=== PATIENT | male | born 1945 | race Caucasian/White ===

== ENCOUNTER 2022-11-11 12:56 | Outpatient (OUT) | payer MEDICARE, SELFPAY ==
[2022-11-11 14:49] LABS: Prostate Specific Antigen Dx 0.81 ng/mL (<=4.00)
== END 2022-11-11 12:57 | disposition home or self-care (01) ==
LOC: LAB 12:57
PROVIDERS: PCP Family Medicine
DX: C61 Malignant neoplasm of prostate (principal)
CPT/HCPCS: 36415; 84153

== ENCOUNTER 2022-11-11 12:58 | Outpatient (OUT) | payer MEDICARE, SELFPAY | END 2022-11-11 12:59 | disposition home or self-care (01) | LOC: LAB 12:58 | PROVIDERS: PCP Family Medicine; Visit Provider Urology | DX: N39.0 Urinary tract infection, site not specified (principal) | CPT/HCPCS: 36415; 84153; 87086; 87150; 87186 ==

== ENCOUNTER 2022-11-11 13:03 | Outpatient (OUT) | payer MEDICARE, SELFPAY ==
[2022-11-11 13:27] LABS: Basophils Percent Auto 0.5 % (0.2-2.0); Eosinophils Absolute Auto 0.1 10^3/uL (0.0-0.7); Eosinophils Percent Auto 1.9 % (0.9-7.0); Hematocrit 42.4 % (42.0-54.0); Hemoglobin 14.1 g/dL (14.0-18.0); Immature Granulocytes Abs Auto 0.08 10^3/uL (0.00-0.03); Immature Granulocytes Pct Auto 1.4 % (0.0-0.5); Lymphocytes Absolute Auto 1.2 10^3/uL (1.2-3.8); Mean Corpuscular HGB Conc 33.3 g/dL (29.9-35.2); Mean Corpuscular Hemoglobin 29.2 pg (25.9-34.0); Mean Corpuscular Volume 87.8 fL (80.0-94.0); Mean Platelet Volume 8.1 fL (9.5-13.5); Monocytes Absolute Auto 0.5 10^3/uL (0.3-0.8); Monocytes Percent Auto 8.1 % (1.7-12.0); Neutrophils Percent Auto 68.1 % (43.0-75.0); Platelet Count 192 10^3/uL (150-450); Red Blood Count 4.83 10^6/uL (4.70-6.10); Red Cell Distribution Width 13.4 % (11.0-15.0); White Blood Count 5.9 10^3/uL (4.0-11.0)
[2022-11-11 15:31] LABS: Alanine Aminotransferase 28 U/L (16-63); Albumin Globulin Ratio 1.1; Alkaline Phosphatase 124 U/L (46-116); Anion Gap 14.2; Aspartate Amino Transferase 16 U/L (15-37); BUN Creatinine Ratio 23.7; Bilirubin Direct 0.1 mg/dL (0.0-0.2); Bilirubin Total 0.6 mg/dL (0.2-1.0); Calcium 9.1 mg/dL (8.5-10.1); Carbon Dioxide 25.4 mmol/L (21.0-32.0); Chloride 103 mmol/L (98-107); Chol HDL Ratio 4.2; Cholesterol 217 mg/dL (<=200); Estimated GFR (African America >60 (>=60); Estimated GFR (Non-African Ame >60 (>=60); Globulin 3.5 g/dL; Glucose 92 mg/dL (74-106); HDL Cholesterol 52 mg/dL (40-60); Potassium 4.6 mmol/L (3.5-5.1); Sodium 138 mmol/L (136-145); Total Protein 7.5 g/dL (6.4-8.2); Triglycerides 146 mg/dL (<=150); VLDL CHOLESTEROL 29.2 mg/dL
== END 2022-11-11 13:04 | disposition home or self-care (01) ==
LOC: LAB 13:05
PROVIDERS: PCP Family Medicine; Visit Provider Family Medicine
DX: Z79.899 Other long term (current) drug therapy (principal); Z13.220 Encounter for screening for lipoid disorders; C61 Malignant neoplasm of prostate; N39.0 Urinary tract infection, site not specified
CPT/HCPCS: 36415; 80048; 80061; 80076; 84153; 85025; 87086; 87150; 87186

== ENCOUNTER 2023-01-12 13:43 | Outpatient (OUT) | payer MEDICARE, SELFPAY ==
[2023-01-12 15:14] LABS: Prostate Specific Antigen Dx 0.57 ng/mL (<=4.00)
== END 2023-01-12 13:44 | disposition home or self-care (01) ==
LOC: LAB 13:43
PROVIDERS: PCP Family Medicine; Visit Provider Urology
DX: Z85.46 Personal history of malignant neoplasm of prostate (principal)
CPT/HCPCS: 36415; 84153

== ENCOUNTER 2023-07-28 13:51 | Outpatient (OUT) | payer MEDICARE, SELFPAY ==
[2023-07-28 15:07] LABS: Prostate Specific Antigen Dx 0.61 ng/mL (<=4.00)
== END 2023-07-28 13:52 | disposition home or self-care (01) ==
LOC: LAB 13:51
PROVIDERS: PCP Family Medicine; Visit Provider Urology
DX: Z85.46 Personal history of malignant neoplasm of prostate (principal)
CPT/HCPCS: 36415; 84153

== ENCOUNTER 2024-01-17 14:33 | Outpatient (OUT) | payer MEDICARE, SELFPAY ==
[2024-01-17 16:02] LABS: Prostate Specific Antigen Dx 0.55 ng/mL (<=4.00)
== END 2024-01-17 14:34 | disposition home or self-care (01) ==
LOC: LAB 14:33
PROVIDERS: PCP Family Medicine; Visit Provider Radiology Radiation Oncology
DX: Z85.46 Personal history of malignant neoplasm of prostate (principal)
CPT/HCPCS: 36415; 84153

== ENCOUNTER 2025-01-25 14:22 | Outpatient (OUT) | payer MEDICARE, SELFPAY ==
--- OUTSIDE RECORDS SUMMARY | 2025-01-25 14:28 | XMS_ITS | CCD ---
Author Organization [facility] Care Team Providers Care Deputy Chief Magistrate Name Role Phone Reta PATTON Unavailable Unavailable Desmond Alex Primary Care Provider [phone] Boone Gregory Unavailable MD Desmond Alex Primary Care Provider MD Boone Gregory Attending Provider [phone] DO Harjit Bui Emergency Provider [phone] Aiden Donald Unavailable [phone] MD Desmond Alex Primary Care Provider [phone] MD oBone Gregory Attending Provider DO Harjit Biu Emergency Provider DO Thomas Willard Emergency Provider MD Desmond Alex Primary Care Provider MD Boone Gregory Attending Provider [phone] Nilsa Vargas II Unavailable [phone] MD Desmond Alex Primary Care Provider MD Boone Gregory Attending Provider MD Nilsa Vargas II Attending Provider DESMOND ALEX Admitting Unavailable DESMOND ALEX Attending Unavailable DESMOND ALEX Primary Care Unavailable DR EDUARDO MCDONNELL V Consulting Unavailable DESMOND ALEX Consulting Unavailable DR VALERIA PATTON Admitting Unavailable DR VALERIA PATTON Attending Unavailable DESMOND ALEX Primary Care Unavailable DR VALERAI PATTON Consulting Unavailable DESMOND ALEX Admitting Unavailable DESMOND ALEX Attending Unavailable DESMOND ALEX Primary Care Unavailable DR PANDA SALGADO Consulting Unavailable DESMOND ALEX Consulting Unavailable Desmond Alex Primary Care Provider MD Desmond Alex Primary Care Provider MD Boone Gregory Attending Provider MD Desmond Alex Primary Care Provider MD Nilsa Vargas II Attending Provider DO Rohan Narayan Attending Provider MD Desmond Alex Primary Care Provider MD Nilsa Vargas II Attending Provider DSEMOND ALEX Attending Unavailable ROHAN NARAYAN Attending Unavailable DESMOND ALEX Referring Unavailable ROHAN NARAYAN Attending Unavailable ROHAN NARAYAN Attending Unavailable DESMOND ALEX Attending Unavailable MD Desmond Alex Primary Care Provider NILSA VARGAS Referring Unavaila ble ISAI, DESMOND Primary Care Unavailable NILSA VARGAS Referring Unavaila ble ISAI, DESMOND Primary Care Unavailable MD Desmond Alex Primary Care Provider [phone] MD Nilsa Vargas II Attending Provider Desmond Alex Primary Care Provider DESMOND ALEX Primary Care Unavailable Reta PATTON Referring Unavailable Reta PATTON Attending Unavailable MD Boone Gregory Attending Provider [phone] MD Desmond Alex Primary Care Provider MD Nilsa Vargas II Attending Provider Desmond Alex MD Primary Care Provider Harjit MUELLER Attending Unavailable Harjit MUELLER Attending Unavailable Desmond Alex MD Primary Care Provider Nilsa Vargas MD Attending Provider Desmond Alex Primary Care Unavailable Boone Gregory Admitting Unavailable Boone Gregory Attending Unavailable Nilsa Vargas II Admitting UnavailNilsa Jimenez II Attending Unavailvidal e Desmond Alex Primary Care Unavailable Michele DE LA VEGA, Nilsa Kelsey Admitting Noel Vargas II, Nilsa Kelsey Attending Desmond Benavidez Primary Care Unavailable Michele DE LA VEGA, Nilsa Kelsey Admitting Noel Vargas II, Nilsa Kelsey Attending Desmond Benavidez Primary Care Unavailable Michele DE LA VEGA, Nilsa Kelsey Attending Noel Vargas II, Nilsa Kelsey Admitting Desmond Benavidez Primary Care Unavailable Medications Current Medications Medication Drug Class(es) Dates Sig (Normalized) Sig (Original) aspirin 325 mg oral tablet (2 sources) Platelet Aggregation Inhibitor, Nonsteroidal Anti-inflammatory Drug take 1 tablet by mouth once daily aspirin 325 mg tablet Take 325 mg by mouth once daily. Active Comment on above: Take 325 mg by mouth once daily. cranberry conc/ascorbic acid (CRANBERRY PLUS VITAMIN C ORAL) (2 sources) cranberry conc/ascorbic acid (CRANBERRY PLUS VITAMIN C ORAL) Take by mouth. Active cranberry conc/a scorbic acid (CRANBERRY PLUS VITAMIN C ORAL) Take by mouth. 0 Active Comment on above: Take by mouth. furosemide 20 mg oral tablet (5 sources) Loop Diuretic take 1 tablet by mouth every twenty-four hours Furosemide 20 MG 1 tablet Orally Once a day Active Multivitamin preparation (10 sources) Multivitamin Act issac naproxen sodium 220 mg oral capsule (1 source) Nonsteroidal Anti-inflammatory Drug Start: 01-24-20 25 take 1 capsule by mouth twice daily as needed Naproxen Sodium (Aleve) 220 mg capsule Active 220 MG PO Twice daily as needed January 23, 2025 12:00am Complies with drug therapy tamsulosin hydrochloride 0.4 mg oral capsule (20 sources) alpha-Adrenergic Ashkan Start: 04-07-20 23 tamsulosin (Flomax) 0.4 MG 24 hr capsule 04/07/2023 Active Start: 04-07-2018 take 1 capsule by [facility] twice daily Tamsulosin 0.4 mg capsule Active 0.4 MG PO Twice daily April 07, 2018 1:00am Complies with drug therapy Start: 04-07-2018 End: 12-08-2021 take 1 capsule by mouth once daily at bedtime tamsulosin (FLOMAX) 0.4 mg Indications: Prostate cancer (HCC) Take 1 capsule by mouth daily at bedtime. 90 capsule 12/08/2021 Active Comment on above: Take 1 capsule by mo uth daily at bedtime. Completed/Discontinued Medications Medication Drug Class(es) Dates Sig (Normalized) Sig (Original) acetaminophen 500 mg oral tablet (20 sources) Start: 11-18-2023 End: 01-23-2025 take 2 tablets by mouth every eight hours Acetaminophen 500 mg tablet Discontinued 1000 MG PO Q8H 180 November 18, 2023 12:00am January 23, 2025 3:38pm Do not reconcile until DOS: 12/05/23. Med to bed Start: 11-18-2023 take 1000 mg by mout h every eight hours Acetaminophen Active 1000 MG PO Q8H 180 November 18, 2023 12:00am Do not reconcile until DOS: 12/05/23. Med to bed Start: 01-20-2022 End: 11-18-2023 take 1 tablet by mouth every twelve hours as needed for pain Acetaminophen 650 mg Tablet Extended Release Discontinued 650 MG PO Q12H as needed for pain January 20, 2022 12:00am November 18, 2023 9:37am acetaminophen (T YLENOL ARTHRITIS PAIN ORAL) Take by mouth. Active acetaminophen (T YLENOL ARTHRITIS PAIN ORAL) Take by mouth. 0 Active Tylenol prn Acti ve Tylenol Active Comment on above: Take by mouth. acetaminophen 325 mg / oxyCODONE hydrochloride 5 mg oral tablet (20 sources) Opioid Agonist Start: 8 End: 2 take 1 tablet by mouth every six hours as needed for pain Oxycodone-Acetaminoph en 5-325 mg tablet Discontinued 1 TAB PO Q6H as needed for pain 10 April 13, 2017January 20, 2022 11:33am apixaban 5 mg oral tablet (20 sources) Factor Xa Inhibitor Start: 2 End: 4 take 1 tablet by mouth once Apixaban (Eliquis Dvt-Pe Treat 30d Start) 5 mg (74 tabs) tablets,dose pack Discontinued 0 PO .COMPLEX 74 March 18, 2022 1:00am June 30, 2023 3:48pm orally per package directions take 1 tablet by mouth every twe lve hours Eliquis 5 MG 1 tablet Orally Twice a day Active Cranberry Conc-Ascorbic Acid (17 sources) Non-Standardized Food Allergenic Extract, Non-Standardized Plant Allergenic Extract, Vitamin C Start: 09-06-2023 End: 11-18-2023 take 1 capsule by mouth once daily Cranberry Conc-Ascorbic Acid (Cranberry Plus Vitamin C) 140-100 mg capsule Discontinued 1 CAP PO Daily September 06, 2023 12:00am November 18, 2023 9:37am Start: 09-06-2023 take 1 capsule by mo uth once daily Cranberry Conc-Ascorbic Acid (Cranberry Plus Vitamin C) 140-100 mg capsule Active 1 CAP PO Daily September 06, 2023 12:00am Calcium (20 sources) Phosphate Binder, Calcium Start: 01-20-2022 End: 09-06-2023 take 1 capsule by mouth once daily Calcium 600 mg Capsule Discontinued 600 MG PO Daily January 20, 2022 12:00am September 06, 2023 4:22pm Start: 01-20-2022 End: 09-06-2023 take 600 mg by mouth once daily Calcium Discontinued 600 MG PO Daily January 20, 2022 12:00am September 06, 2023 4:22pm Start: 01-20-2022 take 600 mg by mouth once daily Calcium Active 600 MG PO Daily January 19, 2022 11:00pm Start: 01-20-2022 take 600 mg by mouth once daily Calcium Active 600 MG PO Daily January 20, 2022 12:00am Calcium Active calcium carbonate 1500 mg / cholecalciferol 200 unt oral capsule (17 sources) Vitamin D Start: 09-06-2023 End: 01-23-2025 take 1 capsule by mouth once daily in the morning Calcium Carbonate-Vitamin D3 (Calcium 600 + D(3)) 600 mg-5 mcg (200 unit) capsule Discontinued 1 CAP PO Every morning September 06, 2023 12:00am January 23, 2025 3:38pm cefadroxil 500 mg oral capsule (13 sources) Cephalosporin Antibacterial Start: 11-18-2023 End: 01-23-2025 take 1 capsule by mouth every twelve hours Cefadroxil 500 mg capsule Discontinued 500 MG PO Q12H 14 November 18, 2023 12:00am January 23, 2025 3:38pm Do not reconcile until DOS: 12/05/23. Med to bed cephalexin 500 mg oral capsule (20 sources) Cephalosporin Antibacterial Start: 02-26-2022 End: 06-30-2023 take 2 capsules by mouth twice daily Cephalexin 500 mg capsule Discontinued 1000 MG PO Twice daily 40 February 26, 2022 12:00am June 30, 2023 3:49pm Start: 02-26-2022 End: 06-30-2023 take 1000 mg by mouth twice daily Cephalexin Discontinued 1000 MG PO Twice daily 40 February 26, 2022 12:00am June 30, 2023 3:49pm ciprofloxacin 500 mg oral tablet (20 sources) Quinolone Antimicrobial Start: 04-13-2018 End: 01-20-2022 take 1 tablet by mouth every twelve hours Ciprofloxacin Hcl (Cipro) 500 mg tablet Discontinued 500 MG PO Q12H April 13, 2018 1:00am January 20, 2022 11:29am docusate sodium 50 mg oral capsule (19 sources) Start: 09-06-2023 End: 01-23-2025 take 2 capsules by mouth once daily in the morning Docusate Sodium 50 mg capsule Discontinued 100 MG PO Every morning September 06, 2023 12:00am January 23, 2025 3:38pm Start: 09-06-2023 take 100 mg by mouth once daily in the morning Docusate Sodium Active 100 MG PO Every morning September 06, 2023 12:00am Start: 09-06-2023 take 100 mg by mouth twice genesis ly Docusate Sodium Active 100 MG PO Twice daily September 06, 2023 12:00am docusate sodium (STOOL SOFTENER ORAL) Take by mouth. Active docusate sodium (STOOL SOFTENER ORAL) Take by mouth. 0 Active Comment on above: Take by mouth. docusate sodium 50 mg / sennosides, [facility] 8.6 mg oral tablet (13 sources) Start: 11-18-19 End: 01-24-20 take 2 tablets by mouth once daily Sennosides-Docusate Sodium (Senokot-S) 8.6-50 mg tablet Discontinued 2 TAB PO daily 60 November 18, 2023 12:00am January 23, 2025 3:39pm Do not reconcile until DOS: 12/05/23. Med to bed ibuprofen 200 mg oral tablet (13 sources) Nonsteroidal Anti-inflammatory Drug Start: 11-18-19 End: 11-21-19 take 1 tablet by mouth every six hours as needed Ibuprofen 200 mg tablet Discontinued 200 MG PO Every 6 hours as needed November 18, 2023 12:00am November 21, 2023 4:12pm Lactobacillus Combination No.4 (Probiotic) 3 billion cell Capsule (20 sources) Start: 04-07-20 End: 06-30-19 take 3 capsules by mouth once daily Lactobacillus Combination No.4 (Probiotic) 3 billion cell Capsule Discontinued 3000 MMU CELLS PO Daily April 07, 2018 1:00am June 30, 2023 3:49pm Start: 04-07-2018 take 3 capsules by m outh once daily Lactobacillus Combination No.4 (Probiotic) 3 billion cell Capsule Active 3000 MMU CELLS PO Daily April 07, 2018 12:00am Start: 04-07-2018 take 3 capsules by m outh once daily Lactobacillus Combination No.4 (Probiotic) 3 billion cell Capsule Active 3000 MMU CELLS PO Daily April 07, 2018 1:00am meloxicam 15 mg oral tablet (20 sources) Nonsteroidal Anti-inflammatory Drug Start: 09-15-2022 End: 01-23-2025 take 1 tablet by mouth once daily in the morning Meloxicam 15 mg tablet Discontinued 15 MG PO Every morning June 30, 2023 1:00am January 23, 2025 3:38pm On Hold: Resume on 01/05/24. Start: 01-20-2022 End: 2022 take 1 tablet by mouth once daily Meloxicam 15 mg tablet Discontinued 15 MG PO Daily January 20, 2022 12:00am 2022 9:37am Comment on above: Take 1 tablet by beck th every afternoon. Multivitamin (One A Day Vitamin) Tablet (20 sources) Start: 2 End: take 1 tablet by mouth once daily Multivitamin (One A Day Vitamin) Tablet Discontinued 1 TAB PO Daily January 20, 2022 12:00am September 06, 2023 4:24pm Start: 01-20-2022 take 1 tablet by beck th once daily Multivitamin (One A Day Vitamin) Tablet Active 1 TAB PO Daily January 19, 2022 11:00pm Start: 01-20-2022 take 1 tablet by beck th once daily Multivitamin (One A Day Vitamin) Tablet Active 1 TAB PO Daily January 20, 2022 12:00am omeprazole 20 mg delayed release oral capsule (13 sources) Proton Pump Inhibitor Start: 11-21-2023 End: 01-23-2025 take 1 capsule by mouth once daily as needed Omeprazole 20 mg capsule,delayed release(DR/EC) Discontinued 20 MG PO Daily as needed for acid reflux November 21, 2023 12:00am January 23, 2025 3:38pm omeprazole OTC ( PriLOSEC OTC) 20 MG EC tablet Active ondansetron 4 mg oral tablet (13 sources) Serotonin-3 Receptor Antagonist Start: 11-18-2023 End: 01-23-2025 take 1 tablet by mouth every eight hours as needed for nausea Ondansetron Hcl 4 mg tablet Discontinued 4 MG PO Q8H as needed for Nausea 9 November 18, 2023 12:00am January 23, 2025 3:38pm Do not reconcile until DOS: 12/05/23. Med to bed oxyCODONE hydrochloride 5 mg oral tablet (20 sources) Opioid Agonist Start: 11-18-2023 End: 01-23-2025 take 1 tablet by mouth every four hours as needed for pain Oxycodone 5 mg tablet Discontinued 5 MG PO Q4H as needed for Pain 42 7 November 18, 2023 January 23, 2025 3:39pm Do not reconcile until DOS: 12/05/23. Med to bed Start: 2022 End: 06-30-2023 take 5-10 mg by mouth every six hours as needed for pain Oxycodone 5 mg tablet Discontinued 5 - 10 MG PO Q6H as needed for Pain 40 8 2022 June 30, 2023 3:49pm pantoprazole 20 mg delayed release oral tablet (13 sources) Proton Pump Inhibitor Start: 11-18-2023 End: 01-23-2025 take 1 tablet by mouth once daily Pantoprazole (Protonix) 20 mg tablet,delayed release (DR/EC) Discontinued 20 MG PO daily 35 35 November 18, 2023 12:00am January 23, 2025 3:39pm Do not reconcile until DOS: 12/05/23. Med to bed polyethylene glycol 3350 81371 mg powder for oral solution (13 sources) Osmotic Laxative Start: 11-18-2023 End: 01-23-2025 Polyethylene Glycol 3350 (Miralax) 17 gram/dose powder Discontinued 17 GM PO daily 7 November 18, 2023 12:00am January 23, 2025 3:39pm 1 packed mixed with 8 ounces of fluid. predniSONE 10 mg oral tablet (20 sources) Start: 11-18-2023 End: 01-23-2025 take 1 tablet by mouth once daily Prednisone 10 mg tablet Discontinued 10 MG PO daily 10 November 18, 2023 12:00am January 23, 2025 3:39pm Do not reconcile until DOS: 12/05/23. Med to bed Start: 03-02-2022 predniSONE 5 M G 1 tablet 3 times a day for 3 days, 1 tablets 2 times a day for 3 days , 1 tablet 1 times a day for 3 days Orally as directed for 9 days Mar, Active Start: 2022 End: 06-30-2023 Prednisone 10 mg tablets,dos e pack Discontinued 1 dose pk PO per package directions 2022 12:00am June 30, 2023 3:49pm take 4 tabs for 3 days then take 3 tabs for 3 days then take 2 tabs for 3 days then take 1 tab for 3 days Start: 2022 End: 06-30-2023 Prednisone Discontinued 1 do se pk PO per package directions 2022 12:00am June 30, 2023 3:49pm take 4 tabs for 3 days then take 3 tabs for 3 days then take 2 tabs for 3 days then take 1 tab for 3 days Start: 2022 Prednisone Act issac 1 dose pk PO per package directions February 05, 2022 11:00pm take 4 tabs for 3 days then take 3 tabs for 3 days then take 2 tabs for 3 days then take 1 tab for 3 days Start: 2022 Prednisone Act issac 1 dose pk PO per package directions 2022 12:00am take 4 tabs for 3 days then take 3 tabs for 3 days then take 2 tabs for 3 days then take 1 tab for 3 days rivaroxaban 10 mg oral tablet (13 sources) Factor Xa Inhibitor Start: 11-18-2023 End: 01-23-2025 take 1 tablet by mouth once daily Rivaroxaban 10 mg tablet Discontinued 10 MG PO daily 35 35 November 18, 2023 12:00am January 23, 2025 3:39pm Do not reconcile until DOS: 12/05/23. Med to bed sulfamethoxazole 800 mg / trimethoprim 160 mg oral tablet (20 sources) Dihydrofolate Reductase Inhibitor Antibacterial, Sulfonamide Antimicrobial Start: 2022 End: 02-26-2022 take 1 tablet by mouth every twelve hours Sulfamethoxazole- Trimethoprim (Bactrim Ds) 800-160 mg tablet Discontinued 1 TAB PO Q12H 2022 12:00am February 26, 2022 2:24pm traMADol hydrochloride 50 mg oral tablet (20 sources) Opioid Agonist Start: 09-09-2023 End: 01-23-2025 take 1 tablet by mouth every six hours as needed for pain Tramadol 50 mg tablet Discontinued 50 MG PO q6h as needed for Pain 28 November 18, 2023 12:00am January 23, 2025 3:39pm Do not reconcile until DOS: 12/05/23. Med to bed triamcinolone acetonide 40 mg/ml injectable suspension (17 sources) Corticosteroid Start: 06-16-2022 Kenalog-40 August, 120 mg Zinc (20 sources) Start: 01-20-2022 End: 09-06-2023 take 1 capsule by mouth once daily Zinc 50 mg Capsule Discontinued 50 MG PO Daily January 20, 2022 12:00am September 06, 2023 4:24pm Start: 01-20-2022 End: 09-06-2023 take 50 mg by mouth once daily Zinc Discontinued 50 MG PO Daily January 20, 2022 12:00am September 06, 2023 4:24pm Start: 01-20-2022 take 50 mg by mouth once daily Zinc Active 50 MG PO Daily January 19, 2022 11:00pm Start: 01-20-2022 take 50 mg by mouth once daily Zinc Active 50 MG PO Daily January 20, 2022 12:00am Problems Active Problems Problem Classification Problem Date Documented Da te Episodic/Chronic Abdominal hernia (17 sources) Inguinal hernia; Translations: [Unilateral inguinal hernia, without obstruction or gangrene, not specified as recurrent] Onset: 08-05-2023 Resolved: 10-27-2023 09-09-2023 Episodic Cancer of prostate (2 sources) History of malignant neoplasm of prostate; Translations: [Personal history of malignant neoplasm of prostate] 12-07-2022 Episodic Malaise and fatigue (20 sources) Fatigue; Translations: [Other fatigue] 02-26-2022 Episodic Comment on above: Problem List clean-u p per request of PhysHermila DUDLEY Cmte Osteoarthritis (20 sources) Arthropathy of bilateral hip joints; Translations: [Bilateral primary osteoarthritis of hip] Onset: 01-14-2022 Resolved: 01-14-2022 Chronic Osteoporosis (15 sources) Senile osteoporosis; Translations: [Age-related osteoporosis without current pathological fracture] 10-12-2023 Chronic Other acquired deformities (20 sources) Lumbar spondylolisthesis; Translations: [Spondylolisthesis, lumbar region] 02-16-2024 Episodic Other acquired deformities (6 sources) Spondylolisthesis, lumbar region; Translations: [Acquired spondylolisthesis] Onset: 01-14-2022 Resolved: 01-14-2022 Episodic Other aftercare (11 sources) Patient encounter status; Translations: [Aftercare following joint replacement surgery] 12-21-2023 Chronic Other aftercare (11 sources) Aftercare following joint replacement surgery; Translations: [Aftercare following joint replacement] Onset: 01-19-2024 12-21-2023 Chronic Other aftercare (15 sources) Long-term current use of drug therapy; Translations: [Other prison (current) drug therapy] 10-12-2023 Episodic Other connective tissue disease (8 sources) History of repair of hip joint; Translations: [Presence of unspecified artificial hip joint] 01-19-2024 Chronic Other connective tissue disease (10 sources) Presence of unspecified artificial hip joint; Translations: [Hip joint replacement] 12-21-2023 Chronic Other connective tissue disease (1 source) Presence of left artificial hip joint; Translations: [Presence of left artificial hip joint] Onset: 01-19-2024 Chronic Other connective tissue disease (3 sources) Arthrodesis status; Translations: [Arthrodesis status] Episodic Other connective tissue disease (5 sources) History of lumbar fusion; Translations: [Arthrodesis status] 02-16-2024 Episodic Other diseases of bladder and urethra (20 sources) Urethral stricture; Translations: [Unspecified urethral stricture, male, unspecified site] 02-03-2022 Episodic Comment on above: Problem List clean-u p per request of Phys. EHR Cmte Other diseases of bladder and urethra (4 sources) Unspecified urethral stricture, male, unspecified site; Translations: [Urethral stricture, unspecified] 2022 Episodic Other nervous system disorders (17 sources) Abnormal gait; Translations: [Unspecified abnormalities of gait and mobility] Episodic Phlebitis; thrombophlebitis and thromboembolism (20 sources) Deep venous thrombosis; Translations: [Acute embolism and thrombosis of unspecified deep veins of unspecified lower extremity] Onset: 09-08-2022 03-18-2022 Episodic Comment on above: Problem List clean-u p per request of Phys. EHR Cmte Residual codes; unclassified (13 sources) History of hernia repair; Translations: [Other specified postprocedural states] 11-18-2023 Episodic Comment on above: 09/09/23 Spondylosis; intervertebral disc disorders; other back problems (20 sources) Lumbar spondylosis; Translations: [Spondylosis without myelopathy or radiculopathy, lumbar region] Onset: 12-28-2021 Chronic Spondylosis; intervertebral disc disorders; other back problems (20 sources) Spinal stenosis, lumbar region with neurogenic claudication; Translations: [Spinal stenosis of lumbar region] Onset: 12-25-2021 Resolved: 01-14-2022 Episodic Comment on above: Problem List clean-u p per request of Phys. EHR Cmte Urinary tract infections (20 sources) Urinary tract infectious disease; Translations: [Urinary tract infection, site not specified] 02-26-2022 Episodic Comment on above: Problem List clean-u p per request of Phys. EHR Cmte Past or Other Problems Problem Classification Problem Date Documented Da te Episodic/Chronic Abdominal pain (1 source) Right inguinal pain; Translations: [Right lower quadrant pain] Onset: 09-06-2023 Resolved: 10-27-2023 10-27-2023 Episodic Cancer of prostate (9 sources) Malignant neoplasm of prostate; Translations: [Malignant tumor of prostate] Onset: 12-16-2016 Resolved: 12-07-2022 Chronic Residual codes; unclassified (1 source) Bilateral lower limb edema; Translations: [Localized edema] Onset: 08-05-2023 08-05-2023 Episodic Results Test Name Value Interpretation Reference Range Facility X-ray reportOrdered By: Josef Burgos on 11-01-2024 Study report [facility] [address] [place] [address] XRay Report Signed Patient: Eduardo Montalvo MR#: [id number] : 1945 Acct:[id number] Age/Sex: 79 / M ADM Date: 5 [facility] Room: Type: REG CLI Attending Dr: Nilsa Vargas II, MD Copies to: Nilsa Vargas MD~ Ordering Provider: Nilsa Vargas MD Date of Service: 11/01/24 XR/XR hip BI w PEL1V: Z47.1 - Aftercare following joint replacement surgery 2 views both hips a single view pelvis plain film COMPARISON: 01/19/2024 HISTORY: Status post left total hip arthroplasty ACUTE FINDINGS: None DEGENERATIVE CHANGE: Similar moderate right hip degeneration SOFT TISSUE FINDINGS: Unremarkable JOINT EFFUSION: None POSTOP CHANGES: Stable left hip arthroplasty BONY MINERALIZATION: Adequate XR/XR hip BI w PEL1V IMPRESSION: Stable degenerative and postsurgical changes Impression dictated by: Adriano Burgos M.D. 11/01/2024 4:09 PM Dictation Location: [place] [address] Transcribed By: [facility] 11/01/24 1609 Dictated By: Adriano Burgos DO 11/01/24 1608 Signed By: 11/01/24 1609 [facility] XR hip BI w [id number] 11-02-19 XR hip BI w PEL1V [facility] [place] [address] XRay Report Signed Patient: Eduardo Montalvo MR#: [id number] : 1945 Acct:[id number] Age/Sex: 79 / M ADM Date: 11/01/24 [facility] Room: Type: REG CLI Attending Dr: Nilsa Vargas II, MD Copies to: Nilsa Vargas MD Ordering Provider: Nilsa Vargas MD Date of Service: 11/01/24 XR/XR hip BI w PEL1V: Z47.1 - Aftercare following joint replacement surgery 2 views both hips a single view pelvis plain film COMPARISON: 01/19/2024 HISTORY: Status post left total hip arthroplasty ACUTE FINDINGS: None DEGENERATIVE CHANGE: Similar moderate right hip degeneration SOFT TISSUE FINDINGS: Unremarkable JOINT EFFUSION: None POSTOP CHANGES: Stable left hip arthroplasty BONY MINERALIZATION: Adequate XR/XR hip BI w PEL1V IMPRESSION: Stable degenerative and postsurgical changes Impression dictated by: Adriano Burgos M.D. 11/01/2024 4:09 PM Dictation Location: [facility] Transcribed By: [facility] 11/01/24 1609 Dictated By: Adriano Burgos DO 11/01/24 1608 Signed By: 11/01/24 1609 Normal [facility] XR lumbar spine AP/LAT/FLX/E XTon 02-16-2024 XR lumbar spine AP/LAT/FLX/EXT [facility] [place] [address] [place] [address] XRay Report Signed Patient: Eduardo Montalvo MR#: [id number] : 1945 Acct:[id number] Age/Sex: 79 / M ADM Date: 02/16/24 Loc: XD Room: Type: [facility] Attending Dr: Boone Gregory MD Copies to: Boone Gregory MD Ordering Provider: Boone Gregory MD Date of Service: 02/16/24 XR/XR lumbar spine AP/LAT/FLX/EXT: M48.062 - Spinal stenosis, lumbar region with neurogenic ... LUMBAR SPINE WITH FLEXION AND EXTENSION VIEWS - 4 views COMPARISON: 02/17/2023 CLINICAL DATA: Follow-up after lumbar fusion. Weightbearing AP as well as lateral views in neutral, flexion and extension were obtained. There is slight thoracolumbar dextroscoliotic curvature. There is prior laminectomy and fusion with posterior rods, pedicle screws and interbody fusion devices extending from L3 through L5. The hardware appears intact and unchanged from the prior. There is still minimal retrolisthesis of L1 on L2 and mild of L3 on L4 and L5 on S1. There is also slight anterolisthesis of L4 on L5. Alignment does not change significantly with flexion or extension. There are no developing fractures. The unfused disc spaces are maintained. There is multilevel endplate spurring, greatest in the thoracolumbar region. There is facet hypertrophy. The SI joints are intact. Patient has a left hip prosthesis. There is mild degenerative change at the right hip. XR/XR lumbar spine AP/LAT/FLX/EXT IMPRESSION: SCOLIOSIS WITH POSTOPERATIVE AND DEGENERATIVE CHANGES SIMILAR TO THE PRIOR. 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 Discharge Vitals Heart Rate (Peripheral) 54 Respiratory Rate 16 Blood Pressure 145/80 Height 187 cm Height 74 in Weight 98 kg Weight 215.6 lb BMI 28.02 What to do next You Need to Schedule the Following Appointments Follow Up with CHARISSA SAAVEDRA, Harjit Palm, URL When: Comments: 1 yr w/ PSA Where: [facility] [address] , [place] [address] [phone] Medications What How Much When Instructions Unchanged tamsulosin (tamsulosin 0.4 mg Cap) 1 Capsules By Mouth 2 times a day Duration: 90 Days Pickup at [facility] Unchanged acetaminophen (Tylenol 8 HR Arthritis Pain 650 mg oral tablet, extended release) 1 Tablets By Mouth Every 8 hours Contact prescribing physician if questions or concerns Unchanged meloxicam (meloxicam 15 mg Tab) Contact prescribing physician if questions or concerns Pharmacy Information [facility]: [address] [place] [phone] Allergies No Known Allergies Problems Ongoing - Any problem that you are currently receiving treatment for. Arthritis BPH with urinary obstruction Epididymoorchitis False passage of urethra Feeling of incomplete bladder emptying Gross hematuria History of blood clots Microscopic hematuria Nocturia Personal history of prostate cancer Proteinuria Urethral stricture Urinary hesitancy Weak urine stream Patient Survey You may receive a survey via text or e-mail asking about your office visit. Please share your experience with us by completing your survey. We appreciate your feedback and thank you for choosing us for your care. Education Materials Prostate Cancer Screening Prostate cancer screening is testing that is done to check for the presence of prostate cancer in men. The prostate gland is a walnut-sized gland that is located below the bladder and in front of the rectum in males. The function of the prostate is to add fluid to semen during ejaculation. Prostate cancer is one of the most common types of cancer in men. Who should have prostate cancer screening? Screening recommendations vary based on age and other risk factors, as well as between the professional organizations who make the recommendations. In general, screening is recommended if: ? You are age 50 to 70 and have an average risk for prostate cancer. You should talk with your health care provider about your need for screening and how often screening should be done. Because most prostate cancers are slow growing and will not cause , screening in this age group is generally reserved for men who have a 10- to 15-year life expectancy. ? You are younger than age 50, and you have these risk factors: ? Having a father, brother, or uncle who has been diagnosed with prostate cancer. The risk is higher if your family member's cancer occurred at an early age or if you have multiple family members with prostate cancer at an early age. ? Being a male who is Black or is of [place] or sub-Saharan descent. In general, screening is not recommended if: ? You are younger than age 40. ? You are between the ages of 40 and 49 and you have no risk factors. ? You are 70 years of age or older. At this age, the risks that screening can cause are greater than the benefits that it may provide. If you are at high risk for prostate cancer, your health care provider may recommend that you have screenings more often or that you start screening at a younger age. How is screening for prostate cancer done? The recommended prostate cancer screening test is a blood test called the prostate-specific antigen (PSA) test. PSA is a protein that is made in the prostate. As you age, your prostate naturally produces more PSA. Abnormally high PSA levels may be caused by: ? Prostate cancer. ? An enlarged prostate that is not caused by cancer (benign prostatic hyperplasia, or BPH). This condition is very common in older men. ? A prostate gland infection (prostatitis) or urinary tract infection. ? Certain medicines such as male hormones (like testosterone) or oth (more content not included)... Normal [facility] Urology Office/Clinic Noteon 2024 Urology Office/Clinic Note Urology Office/Clinic Note Chief Complaint 6 month follow up with PSA, PVR HPI Staff 6 month f/u with PSA and PVR. Dx: personal hx of prostate cancer, BPH with urinary obstruction, false passage of urethra and epididymoorchitis. S/p EBRT done 12/31/17. S/p TURP 04/2018 * tamsulosin 0.4 bid. Pt needs a refill sent to [facility] in [place] PSA (Dr. Patton follows): 02/23/21 - 0.85 11/11/22 - 0.81 01/12/23 - 0.57 07/28/23 - 0.61 01/17/24- 0.55 PVR: 28 ml Dysuria: denies Incomplete bladder emptying: sometimes Hematuria: denies Frequency: denies Urgency: denies Nocturia: 2 x a night Stream: denies hesitancy, has steady stream Leaking: denies Post void dripping: denies Wearing pads/ Depends: denies Urge incontinence: denies Stress incontinence: denies Incontinence without Sensory Awareness: denies Abdominal pain: denies Flank pain: denies Sexual complaints: _ History of Present Illness Tests reviewed: reviewed UA, PVR, PSA I have reviewed the previous health record information and history for this patient from Dr. Mueller. I have reviewed and verified the staff HPI to be accurate for this encounter. Review of Systems PHQ Score Initial Depression Screen Score: 0 SCORE ROS - Provider Constitutional: denies weight loss, denies hot flashes. Eyes: denies eye problems. Gastrointestinal: denies nausea, denies vomiting. Cardiovascular: denies chest pain or angina. Integumentary: no dryness Musculoskeletal: denies musculoskeletal symptoms. ENMT: denies otolaryngeal symptoms. Respiratory: no shortness of breath. Heme/Lymph: denies easy bleeding tendency, denies easy bruising tendency. Psychiatric: no confusion, no anxiety. Genitourinary: See HPI. Physical Exam Vitals & Measurements HR: 54(Peripheral) RR: 16 BP: 145/80 HT: 74 in HT: 187 cm WT: 98 kg WT: 215.6 lb BMI: 28.02 General Appearance: alert, no distress, well nourished, well developed male. Assessment/Plan 1. Personal history of prostate cancer (Z85.46: Personal history of malignant neoplasm of prostate) PSA (Dr. Patton follows): 02/23/21 - 0.85 11/11/22 - 0.81 01/12/23 - 0.57 07/28/23 - 0.61 01/17/24 - 0.55 S/p EBRT 12/31/17. PSA remains stable. Still follows with Dr. Patton with plans to f/u in 1 yr. Will continue to monitor. -F/u in 1 yr w/ PSA 2. BPH with urinary obstruction (N40.1: Benign prostatic hyperplasia with lower urinary tract symptoms) S/p TURP 04/2018. S/p Cysto 04/06/22 - The Urethra is: Normal. The Prostatic Urethra is: Large false passage posteriorly just before the veru. PVR (cc): 07/12/22 - 01/17/23 - 163 (only emptied enough for sample) 02/06/24 - Taking Tamsulosin 0.4mg bid. Does not always feel he empties but overall no bother with urination. -Cont Tamsulosin bid. Refills sent to [facility]. 3. 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 [1] 4. Epididymoorchitis (N45.3: Epididymo-orchitis) UCx 11/11/22 - 20-30k E.Coli, tx'd w/ Keflex 500mg x 7 days. UA today negative for blood and infection. No infections since last encounter. -Pt to call our office if he feels he has an infection in the future. Follow-up With When Contact Information CHARISSA SAAVEDRA, Harjit Palm, URL [facility] [address], [place] [phone] Additional Instructions: 1 yr w/ PSA Patient Education Prostate Cancer Screening I, She Menard, personally scribed for Dr. Mueller on 2024 13:12:51. . Documentation recorded by the scribe, She Menard, accurately reflects the services(s) I performed and decisions made by me. Authenticated by Dr. Mueller on 2024 13:14:49. Problem List/Past Medical History Ongoing Arthritis BPH with urinary obstruction Epididymoorchitis False passage of urethra Feeling of incomplete bladder emptying Gross hematuria History of blood clots Microscopic hematuria Nocturia Personal history of prostate cancer Proteinuria Urethral stricture Urinary hesitancy Weak urine stream Historical No qualifying data Procedure/Surgical History Transurethral resection of prostate (04/12/2018), History of external beam radiation therapy (12/31/2017), Transrectal biopsy of prostate using ultrasound (US) guidance (09/02/2016). Medications meloxicam 15 mg Tab tamsulosin 0.4 mg Cap, 0.4 mg= 1 cap(s), Oral, BID, 3 refills Tylenol 8 HR Arthritis Pain 650 mg oral tablet, extended release, 650 mg= 1 tab(s), Oral, q8hr Allergies No Known Allergies Social History Alcohol - Denies Alcohol Use, 11/21/2018 Tobacco Never (less than 100 in lifetime) Tobacco Use:. Never Smokeless Tobacco Use:. Household tobacco concerns: No., 2024 Family History Family history is unknown Immunizations Vaccine Date Status Comments SARSCoV2 mRNA([id number] (more content not included)... Normal [facility] Comment on above: Result Comment: Elec tronically Signed By: Harjit MUELLER MD\.br\Date and Time Signed: 02/06/24 13:14 EDT\.br\Electronically Co-Signed By: She Menard\Date and Time Co-Signed: 02/06/24 13:13 EDT CNOVon 01-24-2024 CNOV Office Visit ([facility] ) -- EDUARDO MONTALVO ([id number]) 1945 M Date Time Provider Department 01/24/24 1:45 PM Reta PATTON During your visit today, we recorded the following information about you: Temperature Pulse Respiration Blood pressure 97.8 degrees 56/minute 16/minute 130/82 Weight 96.2 kg Ana Loving MA 01/24/2024 1:40 PM Signed AUA=4 Reta Patton MD 01/31/2024 2:01 PM Signed Radiation Oncology - Follow Up Note PATIENT NAME: Eduardo Montalvo PATIENT DIAGNOSIS: DIAGNOSIS: Prostate adenocarcinoma, initial PSA 7.65, biopsy [place] score 3 + 3 = 6 (grade group 1), clinical stage I, [id number] RADIATION SUMMARY:DATES OF TREATMENT: 12/07/2017 to 02/07/2018 AREA TREATED: Pelvis DELIVERED DOSE: Area: Prostate SV 5,040cGy in 28 fractions, 2 Arcs, IMRT(VMAT), 6MV with daily CBCT DELIVERED DOSE: Area: Prostate 2,880cGy in 16 fractions, 2 Arcs, IMRT (VMAT), 6MV with daily CBCT TOTAL: 7,920cGy in 44 fractions ELAPSED TIME: 62 days. INTERVAL HISTORY: Doing well. Denies any new issues or concerns. PSA 01/20/2021: 1.7 ng/ml PSA. (no units) Date Value 01/17/2024 0.55 12/01/2021 0.68 05/27/2021 0.78 05/27/2021 0.78 ALLERGIES No Known Allergies meloxicam (MOBIC) 15 mg tablet Take 1 tablet by mouth every afternoon. cranberry conc/ascorbic acid (CRANBERRY PLUS VITAMIN C ORAL) Take by mouth. aspirin 325 mg tablet Take 325 mg by mouth once daily. docusate sodium (STOOL SOFTENER ORAL) Take by mouth. acetaminophen (TYLENOL ARTHRITIS PAIN ORAL) Take by mouth. tamsulosin (FLOMAX) 0.4 mg Take 1 capsule by mouth daily at bedtime. REVIEW OF SYSTEMS: D/N = na Hematuria: No Catheter use: no AUA: 4 Medications to aid urination: y Bowel movement frequency: 1/day Bowel movement quality: normal Blood per rectum: none PHYSICAL EXAM: BP 130/82 Pulse (!) 56 Temp 36.6 ?C (97.8 ?F) (Temporal) Resp 16 Wt 96.2 kg (212 lb 1.3 oz) SpO2 99% BMI 27.23 kg/m? KPS:100 General appearance: Alert and oriented. No acute distress. Rectal exam def Extremities: No deformities, edema, skin discoloration, clubbing or cyanosis. Lymph Nodes: No cervical lymphadenopathy, No supraclavicular lymphadenopathy, No axillary lymphadenopathy. Skin: Skin color, texture, turgor normal, no suspicious rashes or lesions. ASSESSMENT/PLAN: Prostate adenocarcinoma, initial PSA 7.65, biopsy [place] score 3 + 3 = 6 (grade group 1), clinical stage I, [id number] , prior definitive radiation completed January 2018. Patient doing well , PSA remains low. Plan followup in 1 year with continued PSA surveillance. Signed by: Reta Patton MD cc: Desmond Alex MD ([facility]) Portions of the above note extracted and edited from previous visit as well as active information included in the EMR. Referring Provider: Reta PATTON [[id number]] Allergies As of Date: 01/24/2024 (No Known Allergies) Date Reviewed: 01/24/2024 Reviewed by: Ana Loving ESTELLA - Fully Assessed Reason for Visit: Prostate Cancer [590] Cmt: Follow up Primary Visit Diagnosis:History of prostate cancer [Z85.46] Order(s):PSA (OUTSIDE) [[id number]] Order #: [id number] PROSTATE-SPECIFIC ANTIGEN DIAGNOSTIC [SQPSA] Order #: [id number] FUTURE Prescriptions as of 01/31/2024 - meloxicam (MOBIC) 15 mg tablet Take 1 tablet by mouth every afternoon. - cranberry conc/ascorbic acid (CRANBERRY PLUS VITAMIN C ORAL) Take by mouth. - aspirin 325 mg tablet Take 325 mg by mouth once daily. - docusate sodium (STOOL SOFTENER ORAL) Take by mouth. - acetaminophen (TYLENOL ARTHRITIS PAIN ORAL) Take by mouth. - tamsulosin (FLOMAX) 0.4 mg Take 1 capsule by mouth daily at bedtime. Problem List As Of Date 01/24/2024 Noted Resolved Prostate cancer (HCC) [C61] 12/16/2016 12/07/2022 Visit Notes: >> Inder July, ESTELLA Lagunas Jan 24, 2024 1:38 PM Status: Signed AUA=4 Disposition: Return in about 1 year (around 01/23/2025). Follow-up and Disposition History for Encounter Date Provider Department Center 01/24/2024 [id number] PATTON [facility] Encounter Status:Closed by Reta PATTON on 01/31/24 Normal [facility] XR hip LT min 2V(w/wo pelvis )*on 01-19-2024 XR hip LT min 2V(w/wo pelvis)* [facility] [address] [place] [address] XRay Report Signed Patient: Eduardo Montalvo MR#: [id number] : 1945 Acct:[id number] Age/Sex: 78 / M ADM Date: 01/19/24 [place] [facility] [place]: Type: [facility] Attending Dr: Nilsa Vargas II, MD Copies to: Nilsa Vargas MD Ordering Provider: Nilsa Vargas MD Date of Service: 01/19/24 XR/XR hip LT min 2V(w/wo pelvis)*: Z96.649 - Presence of unspecified artificial hip joint LEFT HIP - 2 views: CLINICAL HISTORY: Follow-up left ELISE COMPARISON: Left hip 12/05/2023 FINDINGS: Left ELISE without radiographic complication. Mild degenerative changes of the right hip. XR/XR hip LT min 2V(w/wo pelvis)* IMPRESSION: NO HARDWARE COMPLICATION IS SEEN.. Impression dictated by: Demarcus Pearson Jr., D.O.01/19/2024 4:54 PM Dictation Location: [place] [address] Transcribed By: [facility] 01/19/241653 Dictated By: Demarcus Pearson Jr, DO 01/19/241652 Signed By: 01/19/241653 Normal [facility] MHPT PSA, DIAGNOSTICon 01-16 PROSTATE SPECIFIC ANTIGEN DX 0.55 ng/mL NINF - 4.00 ng/mL [facility] No Panel InformationOrdered By: Gail Huddleston on 01-17-2024 [facility] [place] 12-05-2023 L Specimen: [id number] Received: 12/05/23 Status: MESERET Brown Num: [id number] Spec Type: Surgical Subm Dr: Nilsa Vargas MD Tissues: A Femoral Head - Other than Fracture (LFT HIP) Procedures: HE/2, Gross/Micro L3, Decalcification Age/ Patient Sex Location Account Attending Physician Eduardo Montalvo/M ND [id number] Nilsa Vargas MD SPEC NUM: [id number] RECD: 12/05/23 STATUS: MESERET BROWN NUM: [id number] MELANIE: 12/05/23- SUBM DR: Nilsa Vargas MD ENTERED: 12/05/[address] [facility] DR: SPEC TYPE: Surgical DEPT: S ORDERED: HE/2, Gross/Micro L3, Decalcification ORDERED: HE/2, Gross/Micro L3, Decalcification Pathological Diagnosis Left hip bone and tissue, total hip arthroplasty, anterior approach: -Femoral head with severe degenerative osteoarthritis, displaying patchy marked articular erosion and cortical eburnation with markedly associated bony remodeling, including severe subcortical cystic degeneration, and severe subcortical fibrosis, and at least moderate osteophytic degenerations, consistent with severe and advanced degenerative joint disease of the left hip Clinical Information Left hip pain and left hip osteoarthritis Gross Description Received in formalin, labeled with the patient's name, date of and bone and tissue, is a 4.9 cm in diameter spherical femoral head with a flat and smooth resection margin through the neck and an aggregate of blas-pink to yellow soft tissue measuring 10.1 x 6.9 x 2.4 cm. A 5.9 x 4.4 cm eburnated area is on the articular surface, with mild osteophyte formation around the articular surface edge. The specimen is sectioned, revealing a 0.3 x 0.3 cm cyst underlying the area of eburnation. The remaining bone matrix is yellow, spongy and unremarkable. A gross photo is included. The specimen is representatively submitted in A1 (bone following decalcification) and A2 (soft tissue). TW Specimen: [id number] Received: 12/05/23 Status: MESERET Brown Num: [id number] Spec Type: Surgical Subm Dr: Nilsa Vargas MD Tissues: A Femoral Head - Other than Fracture (LFT HIP) Procedures: HE/2, Gross/Micro L3, Decalcification Patient: Eduardo Montalvo [id number] (Continued) Specimen: [id number] Received: 12/05/23 (Continued) Signed (signature on file) Candace Salazar MD 12/12/23 1626 Specimen: [id number] Received: 12/05/23 Status: MESERET Brown Num: [id number] Spec Type: Surgical Subm Dr: Nilsa Vargas MD Tissues: A Femoral Head - Other than Fracture (LFT HIP) Procedures: HE/2, Gross/Micro L3, Decalcification Patient: Eduardo Montalvo [id number] (Continued) Specimen: [id number] Received: 12/05/23 (Continued) Microscopic Description Microscopic examinations are performed CPT Codes [id number] BONE AND TISSUE Specimen: [id number] Received: 12/05/23 Status: MESERET Brown Num: [id number] Spec Type: Surgical Subm Dr: Nilsa Vargas MD Tissues: A Femoral Head - Other than Fracture (LFT HIP) Procedures: HE/2, Gross/Micro L3, Decalcification Patient: Eduardo Montalvo [id number] (Continued) Signed (signature on file) Candace Salazar MD 12/12/23 1626 Normal [facility] XR hip LT 1Von 12-05-2023 XR hip LT 1V [address] [address] XRay Report Signed Patient: Eduardo Montalvo MR#: [id number] : 1945 Acct:[id number] Age/Sex: 78 / M ADM Date: 12/05/23 Loc: [place] Room: Type: [facility] Attending Dr: Nilsa Vargas II, MD Copies to: Nilsa Vargas MD Ordering Provider: Nilsa Vargas MD Date of Service: 12/05/23 XR/XR hip LT 1V: LEFT TOTAL HIP Fluoroscopic assessment for left total hip arthroplasty HISTORY: Left hip arthroplasty 6 image was obtained. Cumulative Air Kerma in mGy: 4.47 mGy Adequate alignment. No hardware complication. XR/XR hip LT 1V IMPRESSION: Fluoroscopic assessment of the left hip arthroplasty Impression dictated by: Adriano Burgos M.D.12/05/2023 2:20 PM Dictation Location: RADIO-PC-12 Transcribed By: [facility] 12/05/23 1420 Dictated By: Adriano Burgos DO 12/05/23 1419 Signed By: 12/05/23 1420 Normal [facility] XR low pelvis w/LT x-table h ipon 12-05-2023 XR low pelvis w/LT x-table hip [facility] [place] [place] [address] XRay Report Signed Patient: Eduardo Montalvo MR#: [id number] : 1945 Acct:[id number] Age/Sex: 78 / M ADM Date: 12/05/23 Loc: [place] Room: Type: [facility] Attending Dr: Nilsa Vargas II, MD Copies to: Nilsa Vargas MD Ordering Provider: Nilsa Vargas MD Date of Service: 12/05/23 XR/XR low pelvis w/LT x-table hip: Total Hip, due in PACU Left hip 2 views. Reason for exam: Postop left ELISE. FINDINGS: Soft tissues demonstrate postoperative change. Left ELISE without radiographic complication. XR/XR low pelvis w/LT x-table hip IMPRESSION: No evidence of hardware complication. Impression dictated by: Demarcus Pearson Jr., D.O.12/05/2023 3:23 PM Dictation Location: RADIO-PC-08 Transcribed By: [facility] 12/05/23 1523 Dictated By: Demarcus Pearson Jr, DO 12/05/23 1523 Signed By: 12/05/23 1523 Normal [facility] Automated basophil %Ordered By: Nilsa Vargas on 11-21-2023 Basophils/100 WBC (Bld) 1.0 % Normal . [facility] Comment on above: Performed By: #### F RUC #### [facility] , #### BMP, CBC #### [address] Automated basophil countOrde red By: Nilsa Vargas on 11-21-2023 Basophils (Bld) [#/Vol] 0.0 10*3/uL Normal 0.0-0.2 [facility] Comment on above: Result Comment: PERF ORMED BY: [place] [address] PATHOLOGIST [employer] MACHINE OPERATOR BOGDAN SERRANO M.D. Performed By: #### F RUC #### [facility] , #### BMP, CBC #### [address] Automated blood monocyte cou ntOrdered By: Nilsa Vargas on 11-21-2023 Monocytes (Bld) [#/Vol] 0.4 10*3/uL Normal 0.0-0.8 [facility] Comment on above: Performed By: #### F RUC #### [facility] , #### BMP, CBC #### [address] Automated eosinophil %Ordere d By: Nilsa Vargas on 11-21-2023 Eosinophils/100 WBC (Bld) 1.4 % Normal . [facility] Comment on above: Performed By: #### F RUC #### [facility] , #### BMP, CBC #### [facility] [address] [place] [address] Automated eosinophil countOr dered By: Nilsa Vargas on 11-21-2023 Eosinophils (Bld) [#/Vol] 0.1 10*3/uL Normal 0.0-0.45 [facility] Comment on above: Performed By: #### F RUC #### [facility] , #### BMP, CBC #### [facility] [address] Automated monocyte %Ordered By: Nilsa Vargas on 11-21-2023 Monocytes/100 WBC (Bld) 7.7 % Normal . [facility] Comment on above: Performed By: #### F RUC #### [facility] , #### BMP, CBC #### [facility] [address] [place] [address] Automated neutrophil %Ordere d By: Nilsa Vargas on 11-21-2023 Neutrophils/100 WBC (Bld) 72.2 % Normal . [facility] Comment on above: Performed By: #### F RUC #### [facility] , #### BMP, CBC #### [address] Bacteria [Presence] in Urine by AutomatedOrdered By: Nilsa Vargas on 11-21-2023 Bacteria Auto Ql (U) Rare [HPF] None Seen [facility] Basic Metabolic Panelon 10-31 GFR/1.73 sq M.predicted MDRD (S/P/Bld) [Vol rate/Area] mL/min/{1.73_m2} Normal [facility] Comment on above: Performed By: #### F RUC #### [facility] , #### BMP, CBC #### [facility] [address] [place] [address] Bilirubin Test strip Ql (U)O rdered By: Nilsa Vargas on 11-21-2023 Bilirubin Ql (U) Negative Negative [facility] Calcium [Mass/volume] in Ser um or PlasmaOrdered By: Nilsa Vargas on 11-21-2023 Calcium [Mass/Vol] 9.1 mg/dL Normal 8.6-10.3 [facility] Comment on above: Result Comment: PERF ORMED BY: [place] [address] PATHOLOGIST [employer] PR[employer] MACHINE OPERATOR BOGDAN SERRANO M.D. Performed By: #### F RUC #### [facility] , #### BMP, CBC #### [address] Carbon dioxide, total [Moles /volume] in Serum or PlasmaOrdered By: Nilsa Vargas on 11-21-2023 CO2 [Moles/Vol] 27.2 mmol/L Normal 21.0-31.0 [facility] Comment on above: Performed By: #### F RUC #### [facility] , #### BMP, CBC #### [address] Chloride [Moles/volume] in S rui or PlasmaOrdered By: Nilsa Vargas on 11-21-2023 Chloride [Moles/Vol] 107 mmol/L Normal 98-107 [facility] Comment on above: Performed By: #### F RUC #### [facility] , #### BMP, CBC #### [address] Color of Urine by AutoOrdere d By: Nilsa Vargas on 11-21-2023 Color (U) Yellow Normal [facility] Comment on above: Order Comment: Name Collection Type:: Clean-Voided Midstream Performed By: #### A DDONUAPLUS #### [place] [address] [place] Complete Blood Count Auto Di ffon 11-21-2023 Mean Corpuscular HGB Conc 33.6 g/dL Normal 32.5-35.6 [facility] Comment on above: Performed By: #### F RUC #### [facility] , #### BMP, CBC #### [place] [address] [place] NRBC% 0.1 /100{WBC} Normal 0-0.[address] [facility] Comment on above: Performed By: #### F RUC #### [facility] , #### BMP, CBC #### [facility] [address] [place] [address] [place] Creatinine [Mass/volume] in Serum or PlasmaOrdered By: Nilsa Vargas on 11-21-2023 Creatinine [Mass/Vol] 0.82 mg/dL Normal 0.70-1.30 [facility] Comment on above: Performed By: #### F RUC #### [facility] , #### BMP, CBC #### [facility] [address] [place] [address] [place] Dipstick and Microscopicon 0 11-21-2023 Bacteria,Urine Rare Normal None Seen [facility] Comment on above: Order Comment: Name Collection Type:: Clean-Voided Midstream Performed By: #### A DDONUAPLUS #### [place] [address] [place] Bilirubin,Urine Negative Normal Negative [facility] Comment on above: Order Comment: Name Collection Type:: Clean-Voided Midstream Performed By: #### A DDONUAPLUS #### [address] Glucose Ql (U) Normal Normal Normal [facility] Comment on above: Order Comment: Name Collection Type:: Clean-Voided Midstream Performed By: #### A DDONUAPLUS #### [facility] [address] [place] [address] [place] Hyaline Casts,Urine None Normal 0-8 [facility] Comment on above: Order Comment: Name Collection Type:: Clean-Voided Midstream Performed By: #### A DDONUAPLUS #### [facility] [address] [place] [address] [place] Mucus,Urine 3+ Critically abnormal [facility] Comment on above: Order Comment: Name Collection Type:: Clean-Voided Midstream Result Comment: PERF ORMED BY: [place] [address] PATHOLOGIST [employer] PR[employer]ING MACHINE OPERATOR BOGDAN SERRANO M.D. Performed By: #### A DDONUAPLUS #### [place] [address] [place] Nitrite,Urine Negative Normal Negative [facility] Comment on above: Order Comment: Name Collection Type:: Clean-Voided Midstream Performed By: #### A DDONUAPLUS #### [address] Occult Blood,Urine Negative Normal Negative [facility] Comment on above: Order Comment: Name Collection Type:: Clean-Voided Midstream Result Comment: PERF ORMED BY: [place] [address] PATHOLOGIST [employer] PRINTING MACHINE OPERATOR BOGDAN SERRANO M.D. Performed By: #### A DDONUAPLUS #### [place] [address] [place] Protein,Urine Trace High Negative [facility] Comment on above: Order Comment: Name Collection Type:: Clean-Voided Midstream Performed By: #### A DDONUAPLUS #### [place] [address] [place] RBC,Urine None Seen Normal 0-4 [facility] Comment on above: Order Comment: Name Collection Type:: Clean-Voided Midstream Performed By: #### A DDONUAPLUS #### [address] Specificy [place],Urine 1.031 High 1.001-1.03 0 [facility] Comment on above: Order Comment: Name Collection Type:: Clean-Voided Midstream Performed By: #### A DDONUAPLUS #### [place] [address] [place] Squamous Epithelial Cell,Urine 1-2 Normal 0-2 [facility] Comment on above: Order Comment: Name Collection Type:: Clean-Voided Midstream Performed By: #### A DDONUAPLUS #### [address] Urobilinogen,Urine 2 mg/dL High Normal [facility] Comment on above: Order Comment: Name Collection Type:: Clean-Voided Midstream Performed By: #### A DDONUAPLUS #### [address] WBC,Urine 1-2 Normal 0-4 [facility] Comment on above: Order Comment: Name Collection Type:: Clean-Voided Midstream Performed By: #### A DDONUAPLUS #### [address] Epithelial cells.squamous [# /area] in Urine sediment by Automated countOrdered By: Nilsa Vargas on 11-21-2023 Epithelial cells.squamous Auto (Urine sed) [#/Area] 1-2 [HPF] 0-2 [facility] Erythrocyte distribution wid th [Ratio] by Automated countOrdered By: Nilsa Vargas on 11-21-2023 Erythrocyte distribution width (RBC) [Ratio] 14.2 % Normal 12.0-14.8 [facility] Comment on above: Performed By: #### F RUC #### [facility] , #### BMP, CBC #### [address] Erythrocytes [#/area] in Uri ne sediment by Automated countOrdered By: Nilsa Vargas on 11-21-2023 RBC Auto (Urine sed) [#/Area] None seen [HPF] 0-4 [facility] Erythrocytes [#/volume] in B lood by Automated countOrdered By: Nilsa Vargas on 11-21-2023 RBC (Bld) [#/Vol] 4.96 10*6/uL Normal 3.90-5.60 [facility] Comment on above: Performed By: #### F RUC #### [facility] , #### BMP, CBC #### [address] Fructosamineon 11-21-2023 Fructosamine 230 umol/L Normal 0-285 [facility] Comment on above: Result Comment: Publ ished reference interval for apparently healthy subjects between age 20 and 60 is 205 - 285 umol/L and in a poorly controlled diabetic population is 228 - 563 umol/L with a mean of 396 umol/L. Performed at: [facility] [address] [place], [place] [id number] Hospital Chaplain: Jai Fleming PhD, Phone: [phone] PERFORMED BY: [place] [address] PATHOLOGIST [employer] PRINTING MACHINE OPERATOR BOGDAN SERRANO M.D. Performed By: #### F RUC #### [facility] , #### BMP, CBC #### [address] Fructosamine [Moles/volume] in Serum or PlasmaOrdered By: Nilsa Vargas on 11-21-2023 Fructosamine [Moles/Vol] 230 umol/L 0-285 [facility] Comment on above: Published reference interval for apparently healthysubjects between age 20 and 60 is 205 - 285 umol/L and in apoorly controlled diabetic population is 228 - 563 umol/Lwith a mean of 396 umol/L.Performed at: [facility] [employer] [place] [id number] [place], [place] [id number] Director: Jai Fleming PhD, Phone: [phone] Glucose [Mass/volume] in Ser um or PlasmaOrdered By: Nilsa Vargas on 11-21-2023 Glucose [Mass/Vol] 91 mg/dL Normal 70-100 [facility] Comment on above: ADA recommended refe rence rangeRandom Glucose Reference Range is dependent on time and content of last meal. Glucose of more than 200 mg/dL in a nonstressed, ambulatory subject supports the diagnosis of Diabetes Mellitus. Result Comment: [place] om Glucose Reference Range is dependent on time and content of last meal. Glucose of more than 200 mg/dL in a nonstressed, ambulatory subject supports the diagnosis of Diabetes Mellitus. ADA recommended reference range Performed By: #### F RUC #### [facility] , #### BMP, CBC #### [facility] [address] [place] [address] [place] Glucose [Mass/volume] in Uri ne by Test stripOrdered By: Nilsa Vargas on 11-21-2023 Glucose Test strip (U) [Mass/Vol] Normal mg/dL Normal [facility] Hematocrit [Volume Fraction] of Blood by Automated countOrdered By: Nilsa Vargas on 11-21-2023 Hematocrit (Bld) [Volume fraction] 42.1 % Normal 38.8-50.0 [facility] Comment on above: Performed By: #### F RUC #### [facility] , #### BMP, CBC #### [address] Hemoglobin Test strip Ql (U) Ordered By: Nilsa Vargas on 11-21-2023 Hemoglobin Ql (U) Negative Negative [facility] Hemoglobin [Mass/volume] in BloodOrdered By: Nilsa Vargas on 11-21-2023 Hemoglobin (Bld) [Mass/Vol] 14.2 g/dL Normal 13.0-17.0 [facility] Comment on above: Performed By: #### F RUC #### [facility] , #### BMP, CBC #### [place] [address] [place] Hyaline casts [#/area] in Ur ine sediment by Automated countOrdered By: Nilsa Vargas on 11-21-2023 Hyaline casts Auto (Urine sed) [#/Area] None [LPF] 0-8 [facility] Ketones [Presence] in Urine by Test stripOrdered By: Nilsa Vargas on 11-21-2023 Ketones Ql (U) Negative Normal Negative [facility] Comment on above: Order Comment: Name Collection Type:: Clean-Voided Midstream Performed By: #### A DDONUAPLUS #### [place] [address] [place] Leukocyte esterase [Presence ] in Urine by Test stripOrdered By: Nilsa Vargas on 11-21-2023 Leukocyte esterase Test strip Ql (U) Negative Normal Negative [facility] Comment on above: Order Comment: Name Collection Type:: Clean-Voided Midstream Performed By: #### A DDONUAPLUS #### [address] Leukocytes [#/area] in Urine sediment by Automated countOrdered By: Nilsa Vargas on 11-21-2023 WBC Auto (Urine sed) [#/Area] 1-2 [HPF] 0-4 [facility] Leukocytes [#/volume] correc abhay for nucleated erythrocytes in Blood by Automated counOrdered By: Nilsa Vargas on 11-21-2023 WBC corrected for nucl RBC Auto (Bld) [#/Vol] 5.2 10*3/uL 4.1-10.5 [facility] Leukocytes [#/volume] in Blo od by Automated countOrdered By: Nilsa Vargas on 11-21-2023 WBC (Bld) [#/Vol] 5.2 10*3/uL Normal 4.1-10.5 [facility] Comment on above: Performed By: #### F RUC #### [facility] , #### BMP, CBC #### [facility] [address] [place] [address] [place] Lymphocytes [#/volume] in Bl ood by Automated countOrdered By: Nilsa Vargas on 11-21-2023 Lymphocytes (Bld) [#/Vol] 0.9 10*3/uL Low 1.00-4.8 [facility] Comment on above: Performed By: #### F RUC #### [facility] , #### BMP, CBC #### [facility] [address] [place] [address] [place] Lymphocytes/100 leukocytes i n Blood by Automated countOrdered By: Nilsa Vargas on 11-21-2023 Lymphocytes/100 WBC (Bld) 17.7 % Normal . [facility] Comment on above: Performed By: #### F RUC #### [facility] , #### BMP, CBC #### [facility] [address] [place] [address] MCH [Entitic mass] by Automa abhay countOrdered By: Nilsa Vargas on 11-21-2023 MCH (RBC) [Entitic mass] 28.6 pg Normal 27.5-35.2 [facility] Comment on above: Performed By: #### F RUC #### [facility] , #### BMP, CBC #### [address] MCHC Auto (RBC) [Mass/Vol]Or dered By: Nilsa Vargas on 11-21-2023 MCHC (RBC) [Mass/Vol] 33.6 g/dL 32.5-35.6 [facility] MCV [Entitic volume] by Auto mated countOrdered By: Nilsa Vargas on 11-21-2023 MCV (RBC) [Entitic vol] 85.0 fL Normal 83.5-101 [facility] Comment on above: Performed By: #### F RUC #### [facility] , #### BMP, CBC #### [facility] [address] [place] [address] Mucus [Presence] in Urine by AutomatedOrdered By: Nilsa Vargas on 11-21-2023 Mucus Auto Ql (U) 3+ [LPF] Abnormal [facility] Neutrophils [#/volume] in Bl ood by Automated countOrdered By: Nilsa Vargas on 11-21-2023 Neutrophils (Bld) [#/Vol] 3.7 10*3/uL Normal 1.8-7.7 [facility] Comment on above: Performed By: #### F RUC #### [facility] , #### BMP, CBC #### [address] Nitrite Test strip Ql (U)Ord ered By: Nilsa Vargas on 11-21-2023 Nitrite Ql (U) Negative Negative [facility] No Panel InformationOrdered By: Nilsa Vargas on 11-21-2023 Estimated GFR (CKD-EPI) > 60.0 mL/Min [facility] Creatinine Clearance (Chem N/A [facility] Nucleated erythrocytes [Pres ence] in Blood by Automated countOrdered By: Nilsa Vargas on 11-21-2023 Nucleated RBC Auto Ql (Bld) 0.1 /100{WBC} 0-0.5 [facility] PST Type and Screenon 2023 ABO and Rh group Nom (Bld) Blood group O Rh(D) positive Normal [facility] Comment on above: Order Comment: Date of Surgery: [id number] Result Comment: PERF ORMED BY: [place] [address] PATHOLOGIST [employer]AD PRINTING MACHINE OPERATOR BOGDAN SERRANO M.D. Platelet mean volume [Entiti c volume] in Blood by Automated countOrdered By: Nilsa Vargas on 11-21-2023 Platelet mean volume (Bld) [Entitic vol] 6.5 fL Low 6.6-10.1 [facility] Comment on above: Performed By: #### F RUC #### [facility] , #### BMP, CBC #### [facility] [address] [place] [address] [place] Platelets [#/volume] in Bloo d by Automated countOrdered By: Nilsa Vargas on 11-21-2023 Platelets (Bld) [#/Vol] 194 10*3/uL Normal 150-450 [facility] Comment on above: Performed By: #### F RUC #### [facility] , #### BMP, CBC #### [facility] [address] [place] [address] [place] Potassium [Moles/volume] in Serum or PlasmaOrdered By: Nilsa Vargas on 11-21-2023 Potassium [Moles/Vol] 4.3 mmol/L Normal 3.5-5.1 [facility] Comment on above: Performed By: #### F RUC #### [facility] , #### BMP, CBC #### [address] Protein Test strip (U) [Mass /Vol]Ordered By: Nilsa Vargas on 11-21-2023 Protein (U) [Mass/Vol] Trace mg/dL High Negative [facility] Serum or plasma anion gap de terminationOrdered By: Nilsa Vargas on 11-21-2023 Anion gap [Moles/Vol] 10.1 mmol/L Normal 6.0-15.0 [facility] Comment on above: Performed By: #### F RUC #### [facility] , #### BMP, CBC #### [address] Sodium [Moles/volume] in Ser um or PlasmaOrdered By: Nilsa Vargas on 11-21-2023 Sodium [Moles/Vol] 140 mmol/L Normal 136-145 [facility] Comment on above: Performed By: #### F RUC #### [facility] , #### BMP, CBC #### [address] Specific gravity Test strip (U) [Rel density]Ordered By: Nilsa Vargas on 11-21-2023 Specific gravity (U) [Rel density] 1.031 High 1.001-1.03 0 [facility] Urea nitrogen [Mass/volume] in Serum or PlasmaOrdered By: Nilsa Vargas on 11-21-2023 Urea nitrogen [Mass/Vol] 18 mg/dL Normal 7-25 [facility] Comment on above: Performed By: #### F RUC #### [facility] , #### BMP, CBC #### [address] Urine appearanceOrdered By: Nilsa Vargas on 11-21-2023 Appearance (U) Clear Normal Clear [facility] Comment on above: Order Comment: Name Collection Type:: Clean-Voided Midstream Performed By: #### A DDONUAPLUS #### [address] Urobilinogen Test strip (U) [Mass/Vol]Ordered By: Nilsa Vargas on 11-21-2023 Urobilinogen (U) [Mass/Vol] 2 mg/dL High Normal [facility] pH of Urine by Test stripOrd ered By: Nilsa Vargas on 11-21-2023 pH (U) 5.5 [pH] Normal 5.0-9.0 [facility] Comment on above: Order Comment: Name Collection Type:: Clean-Voided Midstream Performed By: #### A DDONUAPLUS #### [facility] [address] Albumin [Mass/volume] in Ser um or Plasma by Bromocresol green (BCG) dye binding methoOrdered By: Nilsa Vargas on 10-12-2023 Albumin BCG dye [Mass/Vol] 4.4 g/dL 3.5-5.7 [facility] Cotinine [Mass/volume] in Se rum or PlasmaOrdered By: Nilsa Vargas on 10-12-2023 Cotinine [Mass/Vol] <1.0 ng/mL . [facility] Comment on above: This test was develo ped and its performance characteristicsdetermined by [employer]. It has not been cleared orapproved by the Food and Drug Administration.Cotinine levels greater than 20.0 are consistent with theuse of tobacco or tobacco cessation products.Performed at: - [address] [id number] Director: Lisa Paez MD, Phone: [phone] Glucose mean value [Mass/vol ume] in Blood Estimated from glycated hemoglobinOrdered By: Nilsa Vargas on 10-12-2023 Average glucose Estimated from glycated hemoglobin (Bld) [Mass/Vol] 103 mg/dL [facility] Hemoglobin A1c percentageOrd ered By: Nilsa Vargas on 10-12-2023 HbA1c (Bld) [Mass fraction] 5.2 % 4.3-5.6 [facility] Comment on above: Increased risk for d iabetes: 5.7 - 6.4diabetes: >6.4glycemic control for adults with diabetes: <7.0 Hemoglobin [Mass/volume] in BloodOrdered By: Nilsa Vargas on 10-12-2023 Hemoglobin (Bld) [Mass/Vol] 14.5 g/dL 13.0-17.0 [facility] Nicotine [Mass/volume] in Se rum or PlasmaOrdered By: Nilsa Vargas on 10-12-2023 Nicotine [Mass/Vol] <1.0 ng/mL . [facility] Comment on above: This test was develo ped and its performance characteristicsdetermined by [employer]. It has not been cleared orapproved by the Food and Drug Administration.Nicotine levels greater than 2.0 are consistent with theuse of tobacco or tobacco cessation products. Vitamin D+Metabolites [Mass/ volume] in Serum or PlasmaOrdered By: Nilsa Vargas on 10-12-2023 Vitamin D+Metabolites [Mass/Vol] 33.9 ng/mL 30-100 [facility] Comment on above: VITAMIN D STATUS 25( [place])VITAMIN D RANGE (ng/mL) Deficient <20 Insufficient 20 to <30Sufficient 30 to 100Reference: Tito MAXWELL,Katelin MCCRAY, Александр CASAS, et al. Evaluation,treatment, and prevention of vitamin D deficiency; an Endocrine Society clinical practice guideline. JCEM. 2010; 96(7):1911-30. Wound methicillin resistant Staphylococcus aureus (MRSA) cultureOrdered By: Nilsa Vargas on 10-12-2023 MRSA isol Org specific cx Ql (Unsp spec) [facility] Basophils Auto (Bld) [#/Vol] Ordered By: Rohan Narayan on 09-06-2023 Basophils (Bld) [#/Vol] 0.0 10*3/uL 0.0-0.2 [facility] Basophils/100 WBC Auto (Bld) Ordered By: Rohan Narayan on 09-06-2023 Basophils/100 WBC (Bld) 0.5 % . [facility] Calcium [Mass/volume] in Ser um or PlasmaOrdered By: Rohan Narayan on 09-06-2023 Calcium [Mass/Vol] 9.2 mg/dL 8.6-10.3 [facility] Carbon dioxide, total [Moles /volume] in Serum or PlasmaOrdered By: Rohan Narayan on 09-06-2023 CO2 [Moles/Vol] 27.1 mmol/L 21.0-31.0 [facility] Chloride [Moles/volume] in S rui or PlasmaOrdered By: Rohan Narayan on 09-06-2023 Chloride [Moles/Vol] 107 mmol/L 98-107 [facility] Creatinine [Mass/volume] in Serum or PlasmaOrdered By: Rohan Narayan on 09-06-2023 Creatinine [Mass/Vol] 0.95 mg/dL 0.70-1.30 [facility] Eosinophils Auto (Bld) [#/Vo l]Ordered By: Rohan Narayan on 09-06-2023 Eosinophils (Bld) [#/Vol] 0.0 10*3/uL 0.0-0.45 [facility] Eosinophils/100 WBC Auto (Bl d)Ordered By: Rohan Narayan on 09-06-2023 Eosinophils/100 WBC (Bld) 0.6 % . [facility] Erythrocyte distribution wid th Auto (RBC) [Ratio]Ordered By: Rohan Narayan on 09-06-2023 Erythrocyte distribution width (RBC) [Ratio] 14.8 % 12.0-14.8 [facility] Glucose [Mass/volume] in Ser um or PlasmaOrdered By: Rohan Narayan on 09-06-2023 Glucose [Mass/Vol] 131 mg/dL High 70-100 [facility] Comment on above: ADA recommended refe rence rangeRandom Glucose Reference Range is dependent on time and content of last meal. Glucose of more than 200 mg/dL in a nonstressed, ambulatory subject supports the diagnosis of Diabetes Mellitus. Hematocrit Auto (Bld) [Volum e fraction]Ordered By: Rohan Narayan on 09-06-2023 Hematocrit (Bld) [Volume fraction] 41.3 % 38.8-50.0 [facility] Hemoglobin [Mass/volume] in BloodOrdered By: Rohan Narayan on 09-06-2023 Hemoglobin (Bld) [Mass/Vol] 13.9 g/dL 13.0-17.0 [facility] Leukocytes [#/volume] correc abhay for nucleated erythrocytes in Blood by Automated counOrdered By: Rohan Narayan on 09-06-2023 WBC corrected for nucl RBC Auto (Bld) [#/Vol] 5.8 10*3/uL 4.1-10.5 [facility] Lymphocytes Auto (Bld) [#/Vo l]Ordered By: Rohan Narayan on 09-06-2023 Lymphocytes (Bld) [#/Vol] 0.9 10*3/uL Low 1.00-4.8 [facility] Lymphocytes/100 WBC Auto (Bl d)Ordered By: Rohan Narayan on 09-06-2023 Lymphocytes/100 WBC (Bld) 15.5 % . [facility] MCH Auto (RBC) [Entitic mass ]Ordered By: Rohan Narayan on 09-06-2023 MCH (RBC) [Entitic mass] 29.0 pg 27.5-35.2 [facility] MCHC Auto (RBC) [Mass/Vol]Or dered By: Rohan Narayan on 09-06-2023 MCHC (RBC) [Mass/Vol] 33.7 g/dL 32.5-35.6 [facility] MCV Auto (RBC) [Entitic vol] Ordered By: Rohan Narayan on 09-06-2023 MCV (RBC) [Entitic vol] 85.9 fL 83.5-101 [facility] Monocytes Auto (Bld) [#/Vol] Ordered By: Rohan Narayan on 09-06-2023 Monocytes (Bld) [#/Vol] 0.4 10*3/uL 0.0-0.8 [facility] Monocytes/100 WBC Auto (Bld) Ordered By: Rohan Narayan on 09-06-2023 Monocytes/100 WBC (Bld) 7.6 % . [facility] Neutrophils Auto (Bld) [#/Vo l]Ordered By: Rohan Narayan on 09-06-2023 Neutrophils (Bld) [#/Vol] 4.4 10*3/uL 1.8-7.7 [facility] Neutrophils/100 WBC Auto (Bl d)Ordered By: Rohan Narayan on 09-06-2023 Neutrophils/100 WBC (Bld) 75.8 % . [facility] No Panel InformationOrdered By: Rohan Narayan on 09-06-2023 Estimated GFR (CKD-EPI) > 60.0 mL/Min [facility] Creatinine Clearance (Chem N/A [facility] Nucleated erythrocytes [Pres ence] in Blood by Automated countOrdered By: Rohan Narayan on 09-06-2023 Nucleated RBC Auto Ql (Bld) 0.1 /100{WBC} 0-0.5 [facility] Platelet mean volume Auto (B ld) [Entitic vol]Ordered By: Rohan Narayan on 09-06-2023 Platelet mean volume (Bld) [Entitic vol] 6.7 fL 6.6-10.1 [facility] Platelets Auto (Bld) [#/Vol] Ordered By: Rohan Narayan on 09-06-2023 Platelets (Bld) [#/Vol] 193 10*3/uL 150-450 [facility] Potassium [Moles/volume] in Serum or PlasmaOrdered By: Rohan Narayan on 09-06-2023 Potassium [Moles/Vol] 4.1 mmol/L 3.5-5.1 [facility] RBC Auto (Bld) [#/Vol]Ordere d By: Rohan Narayan on 09-06-2023 RBC (Bld) [#/Vol] 4.81 10*6/uL 3.90-5.60 [facility] Serum or plasma anion gap de terminationOrdered By: Rohan Narayan on 09-06-2023 Anion gap [Moles/Vol] 11.0 mmol/L 6.0-15.0 [facility] Sodium [Moles/volume] in Ser um or PlasmaOrdered By: Rohan Narayan on 09-06-2023 Sodium [Moles/Vol] 141 mmol/L 136-145 [facility] Urea nitrogen [Mass/volume] in Serum or PlasmaOrdered By: Rohan Narayan on 09-06-2023 Urea nitrogen [Mass/Vol] 17 mg/dL 7-25 [facility] WBC Auto (Bld) [#/Vol]Ordere d By: Rohan Narayan on 09-06-2023 WBC (Bld) [#/Vol] 5.8 10*3/uL 4.1-10.5 [facility] US ROSARIO DOP LEG LTon 09-09-19 US ROSARIO DOP LEG LT EXAMINATION: US ROSARIO DOP LEG LT HISTORY: Acute DVT of left femoral vein COMPARISON: No relevant comparison available. TECHNIQUE: Grayscale, color and Doppler FINDINGS: Region: Left leg Thrombus: None Flow: Normal Augmentation: Normal Compressibility: Normal IMPRESSION: No deep or superficial vein thrombus in the left leg *Exam performed in accordance with [facility] practice guidelines- Peripheral venous ultrasound, July 26, 2009. Electronically authenticated by: EDUARDO MCDONNELL Date: 2022-09-08 12:52 Normal XR hip LT min 2V(w/wo pelvis )*on 05-19-2022 XR hip LT min 2V(w/wo pelvis)* [facility] [employer] Other XR hip LT min 2V(w/wo pelvis)* [facility] [employer] Other XR hip LT min 2V(w/wo pelvis)* [address] [place] [address] [employer] Other XR hip LT min 2V(w/wo pelvis)* [place] [address] [employer] Other XR hip LT min 2V(w/wo pelvis)* XRay Report [employer] Other XR hip LT min 2V(w/wo pelvis)* Signed [employer] Other XR hip LT min 2V(w/wo pelvis)* Patient: Eduardo Montalvo MR#: [id number] [employer] Other XR hip LT min 2V(w/wo pelvis)* : 1945 Acct:[id number] [employer] Other XR hip LT min 2V(w/wo pelvis)* Age/Sex: 77 / M ADM Date: 05/19/22 [employer] Other XR hip LT min 2V(w/wo pelvis)* Loc: SOX Room: Type: [facility] [employer] Other XR hip LT min 2V(w/wo pelvis)* Attending Dr: Nilsa Vargas II, MD [employer] Other XR hip LT min 2V(w/wo pelvis)* Copies to: Nilsa Vargas MD [employer] Other XR hip LT min 2V(w/wo pelvis)* Ordering Provider: Nilsa Vargas MD [employer] Other XR hip LT min 2V(w/wo pelvis)* Date of Service: 05/19/22 [employer] Other XR hip LT min 2V(w/wo pelvis)* XR/XR hip LT min 2V(w/wo pelvis)*: Arthropathy of left hip [employer] Other XR hip LT min 2V(w/wo pelvis)* 2 views RIGHT hip with single view pelvisplain film [employer] Other XR hip LT min 2V(w/wo pelvis)* COMPARISON:None [employer] Other XR hip LT min 2V(w/wo pelvis)* HISTORY:Joint LEFT hip pain for years. [employer] Other XR hip LT min 2V(w/wo pelvis)* No fracture, dislocation or focal soft tissue abnormality seen.Extensive [id number] contact of the [employer] Other XR hip LT min 2V(w/wo pelvis)* superior LEFT hip joint present with subarticular sclerotic and cystic changes. Mild SI joint and [employer] Other XR hip LT min 2V(w/wo pelvis)* RIGHT hip degenerative change. Lower lumbar fixation hardware. [employer] Other XR hip LT min 2V(w/wo pelvis)* XR/XR hip LT min 2V(w/wo pelvis)* [employer] Other XR hip LT min 2V(w/wo pelvis)* IMPRESSION:Extensive LEFT hip degenerative change. [employer] Other XR hip LT min 2V(w/wo pelvis)* Impression dictated by: Adriano Burgos M.D.05/19/2022 4:20 PM [employer] Other XR hip LT min 2V(w/wo pelvis)* Dictation Location: [facility]-- [employer] Other XR hip LT min 2V(w/wo pelvis)* Transcribed By: PWS 05/19/22 1620 [employer] Other XR hip LT min 2V(w/wo pelvis)* Dictated By: Adriano Burgos DO 05/19/22 1619 [employer] Other XR hip LT min 2V(w/wo pelvis)* Signed By: [employer] Other XR hip LT min 2V(w/wo pelvis)* 05/19/22 1620 [employer] Other Activated partial thrombopla stin time (aPTT) in platelet poor plasma by coagulation aOrdered By: Thomas Willard on 03-18-2022 aPTT Coag (PPP) [Time] 33.8 s 25.1-36.5 [facility] Albumin [Mass/volume] in Ser um or PlasmaOrdered By: Thomas Willard on 03-18-2022 Albumin [Mass/Vol] 3.7 g/dL 3.2-5.5 [facility] Basophils Auto (Bld) [#/Vol] Ordered By: Thomas Willard on 03-18-2022 Basophils (Bld) [#/Vol] 0.1 10*3/uL 0.0-0.2 [facility] Basophils/100 WBC Auto (Bld) Ordered By: Thomas Willard on 03-18-2022 Basophils/100 WBC (Bld) 0.8 % . [facility] Creatine kinase [Enzymatic a ctivity/volume] in Serum or PlasmaOrdered By: Thomas Willard on 03-18-2022 CK [Catalytic activity/Vol] 40 U/L 22-269 [facility] Creatinine and Glomerular fi ltration rate.predicted panel (S/P/Bld)Ordered By: Thomas Willard on 03-18-2022 Creatinine [Mass/Vol] 0.98 mg/dL 0.64-1.27 [facility] Eosinophils Auto (Bld) [#/Vo l]Ordered By: Thomas Willard on 03-18-2022 Eosinophils (Bld) [#/Vol] 0.1 10*3/uL 0.0-0.45 [facility] Eosinophils/100 WBC Auto (Bl d)Ordered By: Thomas Willard on 03-18-2022 Eosinophils/100 WBC (Bld) 0.8 % . [facility] Erythrocyte distribution wid th Auto (RBC) [Ratio]Ordered By: Thomas Willard on 03-18-2022 Erythrocyte distribution width (RBC) [Ratio] 14.6 % 12.0-14.8 [facility] Estimated glomerular filtrat ion rate (GFR) non- AmericanOrdered By: Thomas Willard on 03-18-2022 GFR/1.73 sq M.predicted among non-blacks MDRD (S/P/Bld) [Vol rate/Area] > 60 mL/Min [facility] Globulin Calc (S) [Mass/Vol] Ordered By: Thomas Willard on 03-18-2022 Globulin (S) [Mass/Vol] 3.4 g/dL [facility] Hematocrit Auto (Bld) [Volum e fraction]Ordered By: Thomas Willard on 03-18-2022 Hematocrit (Bld) [Volume fraction] 37.6 % 38.8-50.0 [facility] Hemoglobin [Mass/volume] in BloodOrdered By: Thomas Willard on 03-18-2022 Hemoglobin (Bld) [Mass/Vol] 12.3 g/dL 13.0-17.0 [facility] Laboratory - Chemistry and C hemistry - challengeOrdered By: Thomas Willard on 03-18-2022 Magnesium [Mass/Vol] 2.0 mg/dL 1.6-2.6 [facility] Natriuretic peptide B (Bld) [Mass/Vol] 68.0 pg/mL 5-100 [facility] Laboratory - CoagulationOrde red By: Thomas Willard on 03-18-2022 PT Coag (PPP) [Time] 14.5 s 9.0-12.9 [facility] Laboratory - Hematology and Cell countsOrdered By: Thomas Willard on 03-18-2022 Nucleated RBC/100 WBC (Bld) [Ratio] 0.1 % 0-0.5 [facility] Leukocytes [#/volume] in Blo od by Automated countOrdered By: Thomas Willard on 03-18-2022 WBC (Bld) [#/Vol] 7.3 10*3/uL 4.5-11.0 [facility] Lymphocytes Auto (Bld) [#/Vo l]Ordered By: Thomas Willard on 03-18-2022 Lymphocytes (Bld) [#/Vol] 0.9 10*3/uL 1.00-4.8 [facility] Lymphocytes/100 WBC Auto (Bl d)Ordered By: Thomas Willard on 03-18-2022 Lymphocytes/100 WBC (Bld) 11.7 % . [facility] MCH Auto (RBC) [Entitic mass ]Ordered By: Thomas Willard on 03-18-2022 MCH (RBC) [Entitic mass] 27.9 pg 27.5-35.2 [facility] MCHC Auto (RBC) [Mass/Vol]Or dered By: Thomas Willard on 03-18-2022 MCHC (RBC) [Mass/Vol] 32.7 g/dL 32.5-35.6 [facility] MCV Auto (RBC) [Entitic vol] Ordered By: Thomas Willard on 03-18-2022 MCV (RBC) [Entitic vol] 85.5 fL 83.5-101 [facility] Monocytes Auto (Bld) [#/Vol] Ordered By: Thomas Willard on 03-18-2022 Monocytes (Bld) [#/Vol] 0.7 10*3/uL 0.0-0.8 [facility] Monocytes/100 WBC Auto (Bld) Ordered By: Thomas Willard on 03-18-2022 Monocytes/100 WBC (Bld) 9.4 % . [facility] Neutrophils Auto (Bld) [#/Vo l]Ordered By: Thomas Willard on 03-18-2022 Neutrophils (Bld) [#/Vol] 5.6 10*3/uL 1.8-7.7 [facility] Neutrophils/100 WBC Auto (Bl d)Ordered By: Thomas Willard on 03-18-2022 Neutrophils/100 WBC (Bld) 77.3 % . [facility] No Panel InformationOrdered By: Thomas Willard on 03-18-2022 Estimated GFR () > 60 mL/Min [facility] Comment on above: GFR estimated refere nce range: According to KDOQI guidelines, <60 ml/min/1.73m2 is sufficient to diagnose a patient with chronic kidney disease. Pharmacy Creatinine Clearance (Chem 74.56 [facility] Platelet mean volume Auto (B ld) [Entitic vol]Ordered By: Thomas Willard on 03-18-2022 Platelet mean volume (Bld) [Entitic vol] 6.5 fL 6.6-10.1 [facility] Platelet poor plasma interna tional normalized ratio (INR) by coagulation assay (relatOrdered By: Thomas Willard on 03-18-2022 INR Coag (PPP) [Relative time] 1.3 {INR} [facility] Comment on above: INR Therapeutic Rang e A) Pre- and Peroperative OAT started two weeks before surgery. NOT HIP SURGERY: 1.5 - 2.5 HIP SURGERY: 2 - 3B) Primary and secondary prevention of venous THROMBOSIS: 2 - 3C) Active venous thrombosis, pulmonary embolismand prevention of recurrent venous thrombosis: 2 - 3D) Prevention of arterial thromboembolismincluding patients with mechanical heart valves: 3 - 4.5 Platelets Auto (Bld) [#/Vol] Ordered By: Thomas Willard on 03-18-2022 Platelets (Bld) [#/Vol] 315 10*3/uL 150-450 [facility] Protein [Mass/volume] in Ser um or PlasmaOrdered By: Thomas Willard on 03-18-2022 Protein [Mass/Vol] 7.1 g/dL 6.1-7.9 [facility] RBC Auto (Bld) [#/Vol]Ordere d By: Thomas Willard on 03-18-2022 RBC (Bld) [#/Vol] 4.40 10*6/uL 3.90-5.60 [facility] Serum or plasma alanine johns otransferase measurement without P-5'-P (enzymatic activiOrdered By: Thomas Willard on 03-18-2022 ALT No additional P-5'-P [Catalytic activity/Vol] 21 U/L 10 [facility] Serum or plasma albumin/glob ulin mass ratioOrdered By: Thomas Willard on 03-18-2022 Albumin/Globulin [Mass ratio] 1.1 {ratio} [facility] Serum or plasma alkaline seun sphatase measurement (enzymatic activity/volume)Ordered By: Thomas Willard on 03-18-2022 ALP [Catalytic activity/Vol] 156 U/L 32-92 [facility] Serum or plasma anion gap de terminationOrdered By: Thomas Willard on 03-18-2022 Anion gap [Moles/Vol] 18.6 mmol/L 6.0-15.0 [facility] Serum or plasma aspartate am inotransferase measurement (enzymatic activity/volume)Ordered By: Thomas Willard on 03-18-2022 AST [Catalytic activity/Vol] 25 U/L 10 [facility] Serum or plasma calcium thuy urement (mass/volume)Ordered By: Thomas Willard on 03-18-2022 Calcium [Mass/Vol] 9.3 mg/dL 8.2-10.2 [facility] Serum or plasma chloride desmond surement (moles/volume)Ordered By: Thomas Willard on 03-18-2022 Chloride [Moles/Vol] 97 mmol/L 95-114 [facility] Serum or plasma glucose thuy urement (mass/volume)Ordered By: Thomas Willard on 03-18-2022 Glucose [Mass/Vol] 109 mg/dL 70-100 [facility] Comment on above: ADA recommended refe rence rangeRandom Glucose Reference Range is dependent on time and content of last meal. Glucose of more than 200 mg/dL in a nonstressed, ambulatory subject supports the diagnosis of Diabetes Mellitus. Serum or plasma potassium me asurement (moles/volume)Ordered By: Thomas Willard on 03-18-2022 Potassium [Moles/Vol] 3.7 mmol/L 3.5-5.1 [facility] Serum or plasma sodium measu rement (moles/volume)Ordered By: Thomas Willard on 03-18-2022 Sodium [Moles/Vol] 137 mmol/L 136-146 [facility] Serum or plasma total biliru bin measurement (mass/volume)Ordered By: Thomas Willard on 03-18-2022 Bilirubin [Mass/Vol] 0.9 mg/dL 0.3-1.2 [facility] Serum or plasma total carbon dioxide measurement (moles/volume)Ordered By: Thomas Willard on 03-18-2022 CO2 [Moles/Vol] 25.1 mmol/L 22.0-30.0 [facility] Serum or plasma urea nitroge n measurement (mass/volume)Ordered By: Thomas Willard on 03-18-2022 Urea nitrogen [Mass/Vol] 14 mg/dL 9- [facility] Troponin I.cardiac [Mass/vol ume] in Serum or Plasma by High sensitivity methodOrdered By: Thomas Willard on 03-18-2022 Troponin I.cardiac High sensitivity method [Mass/Vol] 10 pg/mL 0-20 [facility] Urine culture routineOrdered By: Thomas Willard on 03-18-2022 Bacteria identified Cx Nom (U) Escherichia coli [facility] Bacterial blood cultureOrder ed By: Tara cSott on 03-03-2022 Bacteria identified Cx Nom (Bld) NO GROWTH 5 DAYS [facility] Urine culture routineOrdered By: Tara Scott on 02-28-2022 Bacteria identified Cx Nom (U) Enterobacter cloacae [facility] Bacteria identified Cx Nom (U) Klebsiella oxytoca [facility] Bacteria identified Cx Nom (U) Pseudomonas aeruginosa [facility] Activated partial thrombopla stin time (aPTT) in platelet poor plasma by coagulation aOrdered By: Tara Scott on 02-26-2022 aPTT Coag (PPP) [Time] 28.4 s 25.1-36.5 [facility] Automated erythrocytes count in urine sediment (number/area)Ordered By: Tara Scott on 02-26-2022 RBC Auto (Urine sed) [#/Area] 5-9 [HPF] 0-4 [facility] Automated leukocytes count i n urine sediment (number/area)Ordered By: Tara Scott on 02-26-2022 WBC Auto (Urine sed) [#/Area] Innumerable [HPF] 0-4 [facility] Bacterial blood cultureOrder ed By: Tara Scott on 02-26-2022 Bacteria identified Cx Nom (Bld) NO GROWTH 5 DAYS [facility] Basophils Auto (Bld) [#/Vol] Ordered By: Tara Scott on 02-26-2022 Basophils (Bld) [#/Vol] 0.0 10*3/uL 0.0-0.2 [facility] Basophils/100 WBC Auto (Bld) Ordered By: Tara Scott on 02-26-2022 Basophils/100 WBC (Bld) 0.3 % . [facility] Bilirubin Test strip Ql (U)O rdered By: Tara Scott on 02-26-2022 Bilirubin Ql (U) 1+ Negative [facility] COVID CepheidOrdered By: Markell Scott on 02-26-2022 SARS-CoV-2 (COVID-19) RNA INEZ+probe Ql (Unsp spec) [facility] SARS-CoV-2 (COVID-19) Ab IA Ql Negative Negative [facility] Comment on above: This is a duplicate [employer] Xpert Xpress CoV-2/Flu/RSV Plus RNA by RT-PCR result to be used for statistical tracking purpose only. SARS-CoV-2 (COVID-19) RNA INEZ+probe Ql (Unsp spec) [facility] Color Auto (U)Ordered By: Micheline Scott on 02-26-2022 Color (U) Baker Yellow [facility] Creatine kinase [Enzymatic a ctivity/volume] in Serum or PlasmaOrdered By: Tara Scott on 02-26-2022 CK [Catalytic activity/Vol] 90 U/L 22-269 [facility] Creatinine and Glomerular fi ltration rate.predicted panel (S/P/Bld)Ordered By: Tara Scott on 02-26-2022 Creatinine [Mass/Vol] 0.79 mg/dL 0.64-1.27 [facility] Eosinophils Auto (Bld) [#/Vo l]Ordered By: Tara Scott on 02-26-2022 Eosinophils (Bld) [#/Vol] 0.0 10*3/uL 0.0-0.45 [facility] Eosinophils/100 WBC Auto (Bl d)Ordered By: Tara Scott on 02-26-2022 Eosinophils/100 WBC (Bld) 0.1 % . [facility] Erythrocyte distribution wid th Auto (RBC) [Ratio]Ordered By: Tara Scott on 02-26-2022 Erythrocyte distribution width (RBC) [Ratio] 14.4 % 12.0-14.8 [facility] Estimated glomerular filtrat ion rate (GFR) non- AmericanOrdered By: Tara Scott on 02-26-2022 GFR/1.73 sq M.predicted among non-blacks MDRD (S/P/Bld) [Vol rate/Area] > 60 mL/Min [facility] Hematocrit Auto (Bld) [Volum e fraction]Ordered By: Tara Scott on 02-26-2022 Hematocrit (Bld) [Volume fraction] 37.8 % 38.8-50.0 [facility] Hemoglobin [Mass/volume] in BloodOrdered By: Tara Scott on 02-26-2022 Hemoglobin (Bld) [Mass/Vol] 12.3 g/dL 13.0-17.0 [facility] Ketones Auto test strip (U) [Mass/Vol]Ordered By: Tara Scott on 02-26-2022 Ketones (U) [Mass/Vol] Trace Negative [facility] Laboratory - Chemistry and C hemistry - challengeOrdered By: Tara Scott on 02-26-2022 Natriuretic peptide B (Bld) [Mass/Vol] 209.0 pg/mL 5-100 [facility] Laboratory - CoagulationOrde red By: Tara Scott on 02-26-2022 PT Coag (PPP) [Time] 17.4 s 9.0-12.9 [facility] Laboratory - Hematology and Cell countsOrdered By: Tara Scott on 02-26-2022 Nucleated RBC/100 WBC (Bld) [Ratio] 0.0 % 0-0.5 [facility] Laboratory - UrinalysisOrder ed By: Tara Scott on 02-26-2022 Hyaline casts LM Ql (Urine sed) 0-8 [LPF] 0-8 [facility] Leukocytes [#/volume] in Blo od by Automated countOrdered By: Tara Scott on 02-26-2022 WBC (Bld) [#/Vol] 12.3 10*3/uL 4.5-11.0 [facility] Lymphocytes Auto (Bld) [#/Vo l]Ordered By: Tara Scott on 02-26-2022 Lymphocytes (Bld) [#/Vol] 0.2 10*3/uL 1.00-4.8 [facility] Lymphocytes/100 WBC Auto (Bl d)Ordered By: Tara Scott on 02-26-2022 Lymphocytes/100 WBC (Bld) 1.7 % . [facility] MCH Auto (RBC) [Entitic mass ]Ordered By: Tara Scott on 02-26-2022 MCH (RBC) [Entitic mass] 28.7 pg 27.5-35.2 [facility] MCHC Auto (RBC) [Mass/Vol]Or dered By: Tara Scott on 02-26-2022 MCHC (RBC) [Mass/Vol] 32.6 g/dL 32.5-35.6 [facility] MCV Auto (RBC) [Entitic vol] Ordered By: Tara Scott on 02-26-2022 MCV (RBC) [Entitic vol] 88.1 fL 83.5-101 [facility] Monocytes Auto (Bld) [#/Vol] Ordered By: Tara Scott on 02-26-2022 Monocytes (Bld) [#/Vol] 0.7 10*3/uL 0.0-0.8 [facility] Monocytes/100 WBC Auto (Bld) Ordered By: Tara Scott on 02-26-2022 Monocytes/100 WBC (Bld) 5.9 % . [facility] Neutrophils Auto (Bld) [#/Vo l]Ordered By: Tara Scott on 02-26-2022 Neutrophils (Bld) [#/Vol] 11.3 10*3/uL 1.8-7.7 [facility] Neutrophils/100 WBC Auto (Bl d)Ordered By: Tara Scott on 02-26-2022 Neutrophils/100 WBC (Bld) 92.0 % . [facility] Nitrite Test strip Ql (U)Ord ered By: Tara Scott on 02-26-2022 Nitrite Ql (U) Positive Negative [facility] No Panel InformationOrdered By: Tara Scott on 02-26-2022 Estimated GFR () > 60 mL/Min [facility] Comment on above: GFR estimated refere nce range: According to KDOQI guidelines, <60 ml/min/1.73m2 is sufficient to diagnose a patient with chronic kidney disease. Pharmacy Creatinine Clearance (Chem 91.33 [facility] Platelet mean volume Auto (B ld) [Entitic vol]Ordered By: Tara Scott on 02-26-2022 Platelet mean volume (Bld) [Entitic vol] 6.6 fL 6.6-10.1 [facility] Platelet poor plasma interna tional normalized ratio (INR) by coagulation assay (relatOrdered By: Tara Scott on 02-26-2022 INR Coag (PPP) [Relative time] 1.5 {INR} [facility] Comment on above: INR Therapeutic Rang e A) Pre- and Peroperative OAT started two weeks before surgery. NOT HIP SURGERY: 1.5 - 2.5 HIP SURGERY: 2 - 3B) Primary and secondary prevention of venous THROMBOSIS: 2 - 3C) Active venous thrombosis, pulmonary embolismand prevention of recurrent venous thrombosis: 2 - 3D) Prevention of arterial thromboembolismincluding patients with mechanical heart valves: 3 - 4.5 Platelets Auto (Bld) [#/Vol] Ordered By: Tara Scott on 02-26-2022 Platelets (Bld) [#/Vol] 180 10*3/uL 150-450 [facility] Protein Auto test strip (U) [Mass/Vol]Ordered By: Tara Scott on 02-26-2022 Protein (U) [Mass/Vol] 300 mg/dL Negative [facility] RBC Auto (Bld) [#/Vol]Ordere d By: Tara Scott on 02-26-2022 RBC (Bld) [#/Vol] 4.29 10*6/uL 3.90-5.60 [facility] Serum or plasma anion gap de terminationOrdered By: Tara Scott on 02-26-2022 Anion gap [Moles/Vol] 18.4 mmol/L 6.0-15.0 [facility] Serum or plasma calcium thuy urement (mass/volume)Ordered By: Tara Scott on 02-26-2022 Calcium [Mass/Vol] 8.9 mg/dL 8.2-10.2 [facility] Serum or plasma chloride desmond surement (moles/volume)Ordered By: Tara Scott on 02-26-2022 Chloride [Moles/Vol] 98 mmol/L 95-114 [facility] Serum or plasma creatine kin ase MB (CKMB)/total creatine kinase (CK) ratio by calculaOrdered By: Tara Scott on 02-26-2022 CK.MB Calc [Catalytic fraction] 1.6 % 0.00-2.50 [facility] Serum or plasma creatine kin ase MB measurement (mass/volume)Ordered By: Tara Scott on 02-26-2022 CK.MB [Mass/Vol] 1.5 ng/mL 0.6-6.3 [facility] Serum or plasma glucose thuy urement (mass/volume)Ordered By: Tara Scott on 02-26-2022 Glucose [Mass/Vol] 103 mg/dL 70-100 [facility] Comment on above: ADA recommended refe rence rangeRandom Glucose Reference Range is dependent on time and content of last meal. Glucose of more than 200 mg/dL in a nonstressed, ambulatory subject supports the diagnosis of Diabetes Mellitus. Serum or plasma potassium me asurement (moles/volume)Ordered By: Tara Scott on 02-26-2022 Potassium [Moles/Vol] 3.5 mmol/L 3.5-5.1 [facility] Serum or plasma sodium measu rement (moles/volume)Ordered By: Tara Scott on 02-26-2022 Sodium [Moles/Vol] 136 mmol/L 136-146 [facility] Serum or plasma total carbon dioxide measurement (moles/volume)Ordered By: Tara Scott on 02-26-2022 CO2 [Moles/Vol] 23.1 mmol/L 22.0-30.0 [facility] Serum or plasma urea nitroge n measurement (mass/volume)Ordered By: Tara Scott on 02-26-2022 Urea nitrogen [Mass/Vol] 13 mg/dL 9-23 [facility] Specific gravity Auto test s trip (U) [Rel density]Ordered By: Tara Scott on 02-26-2022 Specific gravity (U) [Rel density] 1.028 1.001-1.03 0 [facility] Squamous epithelial cells de tection in urine sediment by light microscopyOrdered By: Tara Scott on 02-26-2022 Epithelial cells.squamous LM Ql (Urine sed) 0-1 [HPF] 0-2 [facility] Troponin I.cardiac [Mass/vol ume] in Serum or Plasma by High sensitivity methodOrdered By: Tara Scott on 02-26-2022 Troponin I.cardiac High sensitivity method [Mass/Vol] 23 pg/mL 0-20 [facility] Urine bacteria detection by automated methodOrdered By: Tara Scott on 02-26-2022 Bacteria Auto Ql (U) 2+ None Seen [facility] Urine clarity by refractomet ry automatedOrdered By: Tara Scott on 02-26-2022 Clarity Refractometry automated (U) Turbid Clear [facility] Urine culture routineOrdered By: Tara Scott on 02-26-2022 Bacteria identified Cx Nom (U) Enterobacter cloacae [facility] Bacteria identified Cx Nom (U) Klebsiella oxytoca [facility] Bacteria identified Cx Nom (U) Pseudomonas aeruginosa [facility] Urine glucose measurement by automated test strip (mass/volume)Ordered By: Tara Scott on 02-26-2022 Glucose Auto test strip (U) [Mass/Vol] Normal mg/dL Normal [facility] Urine hemoglobin detection b y automated test stripOrdered By: Tara Scott on 02-26-2022 Hemoglobin Auto test strip Ql (U) 3+ Negative [facility] Urine leukocyte esterase det ection by automated test stripOrdered By: Tara Scott on 02-26-2022 Leukocyte esterase Auto test strip Ql (U) 4+ Negative [facility] Urobilinogen Auto test strip (U) [Mass/Vol]Ordered By: Tara Scott on 02-26-2022 Urobilinogen (U) [Mass/Vol] Normal mg/dL Normal [facility] Yeast detection in urine sed iment by light microscopyOrdered By: Tara Scott on 02-26-2022 Yeast LM Ql (Urine sed) None seen [HPF] None Seen [facility] pH Auto test strip (U)Ordere d By: Tara Scott on 02-26-2022 pH (U) 5.0 [pH] 5.0-9.0 [facility] Basophils Auto (Bld) [#/Vol] Ordered By: Boone Gregory on 02-05-2022 Basophils (Bld) [#/Vol] 0.0 10*3/uL 0.0-0.2 [facility] Basophils/100 WBC Auto (Bld) Ordered By: Boone Gregory on 02-05-2022 Basophils/100 WBC (Bld) 0.0 % . [facility] Blood hemoglobin measurement (mass/volume)Ordered By: Boone Gregory on 02-05-2022 Hemoglobin (Bld) [Mass/Vol] 12.3 g/dL 13.0-17.0 [facility] Blood leukocytes automated c ount (number/volume)Ordered By: Boone Gregory on 02-05-2022 WBC (Bld) [#/Vol] 12.7 10*3/uL 4.5-11.0 [facility] Creatinine and Glomerular fi ltration rate.predicted panel (S/P/Bld)Ordered By: Boone Gregory on 02-05-2022 Creatinine [Mass/Vol] 0.75 mg/dL 0.64-1.27 [facility] Eosinophils Auto (Bld) [#/Vo l]Ordered By: Boone Gregory on 02-05-2022 Eosinophils (Bld) [#/Vol] 0.0 10*3/uL 0.0-0.45 [facility] Eosinophils/100 WBC Auto (Bl d)Ordered By: Boone Gregory on 02-05-2022 Eosinophils/100 WBC (Bld) 0.0 % . [facility] Erythrocyte distribution wid th Auto (RBC) [Ratio]Ordered By: Boone Gregory on 02-05-2022 Erythrocyte distribution width (RBC) [Ratio] 14.4 % 12.0-14.8 [facility] Estimated glomerular filtrat ion rate (GFR) non- AmericanOrdered By: Boone Gregory on 02-05-2022 GFR/1.73 sq M.predicted among non-blacks MDRD (S/P/Bld) [Vol rate/Area] > 60 mL/Min [facility] Hematocrit Auto (Bld) [Volum e fraction]Ordered By: Boone Gregory on 02-05-2022 Hematocrit (Bld) [Volume fraction] 36.1 % 38.8-50.0 [facility] Laboratory - Hematology and Cell countsOrdered By: Boone Gregory on 02-05-2022 Nucleated RBC/100 WBC (Bld) [Ratio] 0.0 % 0-0.5 [facility] Lymphocytes Auto (Bld) [#/Vo l]Ordered By: Boone Gregory on 02-05-2022 Lymphocytes (Bld) [#/Vol] 0.7 10*3/uL 1.00-4.8 [facility] Lymphocytes/100 WBC Auto (Bl d)Ordered By: Boone Gregory on 02-05-2022 Lymphocytes/100 WBC (Bld) 5.4 % . [facility] MCH Auto (RBC) [Entitic mass ]Ordered By: Boone Gregory on 02-05-2022 MCH (RBC) [Entitic mass] 29.7 pg 27.5-35.2 [facility] MCHC Auto (RBC) [Mass/Vol]Or dered By: Boone Gregory on 02-05-2022 MCHC (RBC) [Mass/Vol] 34.0 g/dL 32.5-35.6 [facility] MCV Auto (RBC) [Entitic vol] Ordered By: Boone Gregory on 02-05-2022 MCV (RBC) [Entitic vol] 87.3 fL 83.5-101 [facility] Monocytes Auto (Bld) [#/Vol] Ordered By: Boone Gregory on 02-05-2022 Monocytes (Bld) [#/Vol] 1.2 10*3/uL 0.0-0.8 [facility] Monocytes/100 WBC Auto (Bld) Ordered By: Boone Gregory on 02-05-2022 Monocytes/100 WBC (Bld) 9.2 % . [facility] Neutrophils Auto (Bld) [#/Vo l]Ordered By: Boone Gregory on 02-05-2022 Neutrophils (Bld) [#/Vol] 10.8 10*3/uL 1.8-7.7 [facility] Neutrophils/100 WBC Auto (Bl d)Ordered By: Boone Gregory on 02-05-2022 Neutrophils/100 WBC (Bld) 85.4 % . [facility] No Panel InformationOrdered By: Boone Gregory on 02-05-2022 Estimated GFR () > 60 mL/Min [facility] Comment on above: GFR estimated refere nce range: According to KDOQI guidelines, <60 ml/min/1.73m2 is sufficient to diagnose a patient with chronic kidney disease. Pharmacy Creatinine Clearance (Chem 92.76 [facility] Platelet mean volume Auto (B ld) [Entitic vol]Ordered By: Boone Gregory on 02-05-2022 Platelet mean volume (Bld) [Entitic vol] 7.1 fL 6.6-10.1 [facility] Platelets Auto (Bld) [#/Vol] Ordered By: Boone Gregory on 02-05-2022 Platelets (Bld) [#/Vol] 161 10*3/uL 150-450 [facility] RBC Auto (Bld) [#/Vol]Ordere d By: Boone Gregory on 02-05-2022 RBC (Bld) [#/Vol] 4.14 10*6/uL 3.90-5.60 [facility] Serum or plasma anion gap de terminationOrdered By: Boone Gregory on 02-05-2022 Anion gap [Moles/Vol] 13.3 mmol/L 6.0-15.0 [facility] Serum or plasma calcium thuy urement (mass/volume)Ordered By: Boone Gregory on 02-05-2022 Calcium [Mass/Vol] 8.9 mg/dL 8.2-10.2 [facility] Serum or plasma chloride desmond surement (moles/volume)Ordered By: Boone Gregory on 02-05-2022 Chloride [Moles/Vol] 101 mmol/L 95-114 [facility] Serum or plasma glucose thuy urement (mass/volume)Ordered By: Boone Gregory on 02-05-2022 Glucose [Mass/Vol] 133 mg/dL 70-100 [facility] Comment on above: ADA recommended refe rence rangeRandom Glucose Reference Range is dependent on time and content of last meal. Glucose of more than 200 mg/dL in a nonstressed, ambulatory subject supports the diagnosis of Diabetes Mellitus. Serum or plasma potassium me asurement (moles/volume)Ordered By: Boone Gregory on 02-05-2022 Potassium [Moles/Vol] 4.0 mmol/L 3.5-5.1 [facility] Serum or plasma sodium measu rement (moles/volume)Ordered By: Boone Gregory on 02-05-2022 Sodium [Moles/Vol] 139 mmol/L 136-146 [facility] Serum or plasma total carbon dioxide measurement (moles/volume)Ordered By: Boone Gregory on 02-05-2022 CO2 [Moles/Vol] 28.7 mmol/L 22.0-30.0 [facility] Serum or plasma urea nitroge n measurement (mass/volume)Ordered By: Boone Gregory on 02-05-2022 Urea nitrogen [Mass/Vol] 13 mg/dL 9-23 [facility] COVID-19 Positive/NegativeOr dered By: Boone Gregory on 02-01-2022 SARS-CoV-2 (COVID-19) N gene INEZ+probe Ql (Resp) Negative Negative [facility] Comment on above: Testing for SARS-CoV -2 by RT-PCRThis test was developed and its performance characteristics determined by [employer] and validated at the [facility]. This test has not been FDA cleared or approved. This test has been authorized by FDA under an Emergency Use Authorization (EUA). This test has been validated in accordance with the FDA's Guidance Document (Policy for Diagnostics Testing in Laboratories Certified to Perform High Complexity Testing under CLIA prior to Emergency Use Authorization for Coronavirus Disease-2019 during the Public Health Emergency) issued on August 02, 2019. This test is only authorized for the duration of time the declaration that circumstances exist justifying the authorization of the emergency use of in vitro diagnostic tests for detection of SARS-CoV-2 virus and/or diagnosis of COVID-19 infection under section 564(b)(1) of the Act, 21 U.S.C. 360bbb-3(b)(1), unless the authorization is terminated or revoked sooner. Basophils Auto (Bld) [#/Vol] Ordered By: Boone Gregory on 01-20-2022 Basophils (Bld) [#/Vol] 0.0 10*3/uL 0.0-0.2 [facility] Basophils/100 WBC Auto (Bld) Ordered By: Boone Gregory on 01-20-2022 Basophils/100 WBC (Bld) 0.7 % . [facility] Blood hemoglobin measurement (mass/volume)Ordered By: Boone Gregory on 01-20-2022 Hemoglobin (Bld) [Mass/Vol] 13.8 g/dL 13.0-17.0 [facility] Blood leukocytes automated c ount (number/volume)Ordered By: Boone Gregory on 01-20-2022 WBC (Bld) [#/Vol] 4.8 10*3/uL 4.5-11.0 [facility] Creatinine and Glomerular fi ltration rate.predicted panel (S/P/Bld)Ordered By: Boone Gregory on 01-20-2022 Creatinine [Mass/Vol] 0.81 mg/dL 0.64-1.27 [facility] Eosinophils Auto (Bld) [#/Vo l]Ordered By: Boone Gregory on 01-20-2022 Eosinophils (Bld) [#/Vol] 0.0 10*3/uL 0.0-0.45 [facility] Eosinophils/100 WBC Auto (Bl d)Ordered By: Boone Gregory on 01-20-2022 Eosinophils/100 WBC (Bld) 0.7 % . [facility] Erythrocyte distribution wid th Auto (RBC) [Ratio]Ordered By: Boone Gregory on 01-20-2022 Erythrocyte distribution width (RBC) [Ratio] 14.3 % 12.0-14.8 [facility] Estimated glomerular filtrat ion rate (GFR) non- AmericanOrdered By: Boone Gregory on 01-20-2022 GFR/1.73 sq M.predicted among non-blacks MDRD (S/P/Bld) [Vol rate/Area] > 60 mL/Min [facility] Hematocrit Auto (Bld) [Volum e fraction]Ordered By: Boone Gregory on 01-20-2022 Hematocrit (Bld) [Volume fraction] 41.7 % 38.8-50.0 [facility] Laboratory - Hematology and Cell countsOrdered By: Boone Gregory on 01-20-2022 Nucleated RBC/100 WBC (Bld) [Ratio] 0.2 % 0-0.5 [facility] Lymphocytes Auto (Bld) [#/Vo l]Ordered By: Boone Gregory on 01-20-2022 Lymphocytes (Bld) [#/Vol] 0.8 10*3/uL 1.00-4.8 [facility] Lymphocytes/100 WBC Auto (Bl d)Ordered By: Boone Gregory on 01-20-2022 Lymphocytes/100 WBC (Bld) 16.5 % . [facility] MCH Auto (RBC) [Entitic mass ]Ordered By: Boone Gregory on 01-20-2022 MCH (RBC) [Entitic mass] 29.1 pg 27.5-35.2 [facility] MCHC Auto (RBC) [Mass/Vol]Or dered By: Boone Gregory on 01-20-2022 MCHC (RBC) [Mass/Vol] 33.1 g/dL 32.5-35.6 [facility] MCV Auto (RBC) [Entitic vol] Ordered By: Boone Gregory on 01-20-2022 MCV (RBC) [Entitic vol] 87.9 fL 83.5-101 [facility] Monocytes Auto (Bld) [#/Vol] Ordered By: Boone Gregory on 01-20-2022 Monocytes (Bld) [#/Vol] 0.4 10*3/uL 0.0-0.8 [facility] Monocytes/100 WBC Auto (Bld) Ordered By: Boone Gregory on 01-20-2022 Monocytes/100 WBC (Bld) 8.3 % . [facility] Neutrophils Auto (Bld) [#/Vo l]Ordered By: Boone Gregory on 01-20-2022 Neutrophils (Bld) [#/Vol] 3.5 10*3/uL 1.8-7.7 [facility] Neutrophils/100 WBC Auto (Bl d)Ordered By: Boone Gregory on 01-20-2022 Neutrophils/100 WBC (Bld) 73.8 % . [facility] No Panel InformationOrdered By: Boone Gregory on 01-20-2022 Estimated GFR () > 60 mL/Min [facility] Comment on above: GFR estimated refere nce range: According to KDOQI guidelines, <60 ml/min/1.73m2 is sufficient to diagnose a patient with chronic kidney disease. Pharmacy Creatinine Clearance (Chem N/A [facility] Platelet mean volume Auto (B ld) [Entitic vol]Ordered By: Boone Gregory on 01-20-2022 Platelet mean volume (Bld) [Entitic vol] 7.0 fL 6.6-10.1 [facility] Platelets Auto (Bld) [#/Vol] Ordered By: Boone Gregory on 01-20-2022 Platelets (Bld) [#/Vol] 158 10*3/uL 150-450 [facility] RBC Auto (Bld) [#/Vol]Ordere d By: Boone Gregory on 01-20-2022 RBC (Bld) [#/Vol] 4.75 10*6/uL 3.90-5.60 [facility] Serum or plasma anion gap de terminationOrdered By: Boone Gregory on 01-20-2022 Anion gap [Moles/Vol] 13.4 mmol/L 6.0-15.0 [facility] Serum or plasma calcium thuy urement (mass/volume)Ordered By: Boone Gregory on 01-20-2022 Calcium [Mass/Vol] 9.5 mg/dL 8.2-10.2 [facility] Serum or plasma chloride desmond surement (moles/volume)Ordered By: Boone Gregory on 01-20-2022 Chloride [Moles/Vol] 103 mmol/L 95-114 [facility] Serum or plasma glucose thuy urement (mass/volume)Ordered By: Boone Gregory on 01-20-2022 Glucose [Mass/Vol] 91 mg/dL 70-100 [facility] Comment on above: ADA recommended refe rence rangeRandom Glucose Reference Range is dependent on time and content of last meal. Glucose of more than 200 mg/dL in a nonstressed, ambulatory subject supports the diagnosis of Diabetes Mellitus. Serum or plasma potassium me asurement (moles/volume)Ordered By: Boone Gregory on 01-20-2022 Potassium [Moles/Vol] 4.4 mmol/L 3.5-5.1 [facility] Serum or plasma sodium measu rement (moles/volume)Ordered By: Boone Gregory on 01-20-2022 Sodium [Moles/Vol] 138 mmol/L 136-146 [facility] Serum or plasma total carbon dioxide measurement (moles/volume)Ordered By: Boone Gregory on 01-20-2022 CO2 [Moles/Vol] 26.0 mmol/L 22.0-30.0 [facility] Serum or plasma urea nitroge n measurement (mass/volume)Ordered By: Boone Gregory on 01-20-2022 Urea nitrogen [Mass/Vol] 14 mg/dL 9- [facility] MRI LSPINE WO CONon 12-27-19 MRI LSPINE WO CON EXAMINATION: MRI LSP INE WO CON HISTORY: Lumbago with sciatica ; chronic lumbar pain radiating into left hip COMPARISON: No relevant comparison available. TECHNIQUE: A variety of imaging planes and parameters were utilized for visualization of suspected pathology. FINDINGS: For the purposes of numbering, sagittal T2 image # 8 extends from the T12 vertebral body superiorly to the S3 level inferiorly. PARASPINAL AREA: Normal with no visible mass. BONES: 5 mm anterior listhesis of L4 on 5. No fracture or bone lesion. CORD/CAUDA EQUINA: Normal caliber, contour, and signal intensity. DISC LEVELS: 12-L1: Early degenerative disc disease is present without focal protrusion or neural impingement. L1-L2: Early degenerative disc disease is present without focal protrusion or neural impingement. L2-L3: Early degenerative disc disease is present without focal protrusion or neural impingement. L3-L4: Moderate central canal and moderate-marked bilateral foramen narrowing, with the descending L4 nerve roots possibly experiencing impingement between the disc and posterior elements. Moderate degenerative facet arthropathy and marked ligamentum flavum thickening. L4-L5: Marked central canal (5 x 5 mm) and right foramen narrowing. Moderate left foramen narrowing. 5 mm anterolisthesis of L4-L5, moderate posterior superior disc bulging, and marked degenerative facet arthropathy with ligamentum flavum thickening. Mild disc height reduction. L5-S1: Early degenerative disc disease is present without focal protrusion or neural impingement. IMPRESSION: 1. L4-L5 marked central canal narrowing and right foramen narrowing secondary to degenerative disc disease, grade 1 anterolisthesis, and marked facet arthropathy with ligamentum flavum thickening. 2. L3-L4 moderate central canal narrowing and moderate marked bilateral foramen narrowing secondary to degenerative disc disease and facet arthropathy. Electronically authenticated by: PANDA SALGADO Date: 2021-12-26 08:35 Normal [facility] HEALTHon 09-23-2017 [facility] HNO ID: [id number] thor: Ren Mkcoy Mri-TService: (none)Author Type: (none)Type: Allied HealthFiled: 09/23/2017 1:28 PMNote Text: Radiology Service Progress NotePATIENT NAME: Eduardo MontalvoMRN: [id number] OF SERVICE: September 23, 2017TIME: 1:27 PMPATIENT IDENTITY VERIFICATION COMPLETED USING TWO (2) METHODS: Patientconfirmed name verbally and Date of .PATIENT GENDER DATA: MalePATIENT RELEVANT IMPLANT DATA REVIEWED: YesRADIOLOGY DEPARTMENT: MR; Exam(s) Completed: Body: ProstatePERIPHERAL IV DATA: Site assessment: Clean,Dry and Intact, Sitedisposition DiscontinuedSIGNED BY: Ren Mckoy Mri-TMay 2017 1:27 PM [facility] MRI PROSTATE WO/W IVCONon MRI PROSTATE WO/W IVCON * * *Final Report* * *DATE OF EXAM: Sep 23 2017 1:29PM [facility] [id number] - MRI PROSTATE WO/W IVCON / REASON: Malignant neoplasm of prostate * * * * Physician Interpretation * * * * EXAMINATION: MRI PELVIS WITHOUT AND WITH CONTRAST (MULTIPARAMETRIC PROSTATE MRI):CLINICAL HISTORY: 72-year-old man with prostate cancer. Pre-treatment staging.Previous biopsy: Positive, Grade Group 1 (GS 3 + 3)PSA: 7.28 ng/mL (06/28/2017)Prior therapy: None.TECHNIQUE: Multiparametric MRI of the prostate and pelvis performed on a 3T (Siemens 3T TrioTim) MR system utilizing a torso phased array coil.Sequences obtained:Sagittal, axial and coronal high resolution T2-WI with small [id number];Axial diffusion weighted images with multiple B-values and creation of ADC-maps;Dynamic contrast enhanced T1-weighted images through the prostate were also obtained before, during and after the administration of intravenous gadolinium. Subsequently, larger field of view 3D T1 weighted axial images were obtained through the pelvis.Prostate dimension, volume and pharmacokinetics were obtained using a semi-automated software ([employer]).M: MRPro_2Contrast: IV administration of 20 ml of DotaremCOMPARISON: None.RESULT:Prostate:Dimen sions: 6.1 x 5.2 x 7.9 cm corresponding to a volume of approximately 115 cc.Peripheral zone: No focal abnormalities with imaging features concerning for prostate cancer.PI-RADS score 2Transition zone: There is transition zone hypertrophy, without focal abnormalities suspicious for clinically significant disease.PI-RADS score 2Central zone: The central zone is not well seen.Neurovascular bundle: Unremarkable.Seminal vesicles: Unremarkable.Adjacent Organ Involvement: None.Lymphadenopathy: No pelvic lymphadenopathy.Other Findings: 2 cm multilocular cystic focus with minimal T1 intermediate signal internal debris along the anterior wall bladder dome, incompletely evaluated however likely a urachal remnant versus diverticulum (9:30). Mild associated peripheral and septal enhancement where visualized.IMPRESSION:NO FOCAL ABNORMALITIES WITH IMAGING FEATURES TO CORRELATE WITH REPORTED PROSTATE CANCER. PI-RADS 2: CLINICALLY SIGNIFICANT PROSTATE CANCER IS UNLIKELY.2 CM MULTILOCULAR CYSTIC FOCUS ALONG THE ANTERIOR BLADDER DOME, INCOMPLETELY EVALUATED HOWEVER LIKELY A URACHAL REMNANT VERSUS DIVERTICULUM. MILD PERIPHERAL AND SEPTAL ENHANCEMENT WHERE VISUALIZED. FOLLOW-UP SURVEILLANCE MAY BE WARRANTED TO ASSESS STABILITY. Num wandy of targets created for MR/US fusion biopsy:Peripheral zone: 0Transition zone: 0Central zone: 0Targets were numbered in order of level of suspicion for clinically significant prostate cancer (Halley score 3 + 4 or higher).PI-RADS assessment categories:PI-RADS 1: Clinically significant cancer is highly unlikelyPI-RADS 2: Clinically significant cancer is unlikelyPI-RADS 3: Clinically significant cancer is equivocalPI-RADS 4: Clinically significant cancer is likelyPI-RADS 5: Clinically significant cancer is highly likelyTranscriptionist: MARIBEL Transcribe Date/Time: Sep 27 2017 8:15ADictated by : Logan RIVERS examination was interpreted and the report reviewed and electronically signed by: SHELTON BANG DO on Sep 27 2017 8:44AM [id number] [facility] PROGRESSon 09-23-2017 PROGRESS HNO ID: [id number] thor: Cynthia (Rn) KORIN Bradleyervice: RadiologyAuthor Type: Registered NurseType: Progress NotesFiled: 09/23/2017 12:47 PMNote Text: Radiology Service Progress NotePATIENT NAME: Eduardo MontalvoMRN: [id number] OF SERVICE: September 23, 2017TIME: 12:45 PMPATIENT WEIGHT: 225 LBSPATIENT IDENTITY VERIFICATION COMPLETED USING TWO (2) METHODS: Patientconfirmed name verbally and ID band matches..PATIENT GENDER DATA: MaleCONTRAST INDUCED NEPHROPATHY RISK FACTORS: Patient age > 60 yearsCREATININE: No results found for: CREAT, EGFROTH, EGFRAAP.O.C.T. RESULTS: POC done: Yes, See Lab Tab September 23, 2017TREATMENT: No Hydration needed.ALLERGIES: Reviewed and unchangedCONTRAST ALLERGY: NO.IV SITE: Ambulatory: A peripheral IV was started in the Left hand with aAngio cath: 22 gauge. and A Saline lock was inserted per protocolIV SITE APPEARANCE: Clean,Dry and IntactSIGNED BY: Cynthia Bradley, DREADMay 2017 12:45 PM [facility] Vital Signs Date Time Vital Sign Value Performing Clinician Facility 01-23-2025 15:37-0400 Body height 187.96 cm Desmond Alex MD Work Phone: [facility] 01-23-2025 15:37-0400 Body mass index (BMI) [Ratio] 26.3 kg/m2 Desmond Alex MD Work Phone: [facility] 01-23-2025 15:37-0400 Body weight 92.98 kg Desmond Alex MD Work Phone: [facility] 01-23-2025 15:37-0400 Diastolic blood pressure 70 mm[Hg] Desmond Alex MD Work Phone: [facility] 01-23-2025 15:37-0400 Systolic blood pressure 128 mm[Hg] Desmond Alex MD Work Phone: [facility] 02-16-2024 13:45-0400 Body weight 97.97 kg MD Desmond Alex Work Phone: [facility] 01-24-2024 13:35-0400 Body mass index (BMI) [Ratio] 27.23 kg/m2 ALICIA Patton MD Work Phone: [facility] 01-24-2024 13:35-0400 Body temperature 97.81 [degF] ALICIA Patton MD Work Phone: [facility] 01-24-2024 13:35-0400 Body weight 96.2 kg ALICIA Patton MD Work Phone: [facility] 01-24-2024 13:35-0400 Diastolic blood pressure 82 mm[Hg] ALICIA Patton MD Work Phone: [facility] 01-24-2024 13:35-0400 Heart rate 56 /min ALICIA Patton MD Work Phone: [facility] 01-24-2024 13:35-0400 Respiratory rate 16 /min ALICIA Patton MD Work Phone: [facility] 01-24-2024 13:35-0400 SaO2% (BldA) [Mass fraction] 99 % ALICIA Patton MD Work Phone: [facility] 01-24-2024 13:35-0400 Systolic blood pressure 130 mm[Hg] ALICIA Patton MD Work Phone: [facility] 12-05-2023 14:44-0400 Diastolic blood pressure 63 mm[Hg] MD Desmond Alex Work Phone: [facility] 12-05-2023 14:44-0400 Heart rate 64 /min MD Desmond Alex Work Phone: [facility] 12-05-2023 14:44-0400 Respiratory rate 16 /min MD Desmond Alex Work Phone: [facility] 12-05-2023 14:44-0400 SaO2% (BldA) [Mass fraction] 99 % MD Desmond Alex Work Phone: [facility] 12-05-2023 14:44-0400 Systolic blood pressure 119 mm[Hg] MD Desmond Alex Work Phone: [facility] 12-05-2023 12:02-0400 Body temperature 97.4 [degF] MD Desmond Alex Work Phone: [facility] 12-05-2023 11:32-0400 Inhaled oxygen flow rate 2 L/min MD Desmond Alex Work Phone: [facility] 12-05-2023 09:13-0400 Body mass index (BMI) [Ratio] 26.9 kg/m2 MD Desmond Alex Work Phone: [facility] 12-05-2023 08:29-0400 Body height 187.96 cm MD Desmond Alex Work Phone: [facility] 12-05-2023 08:29-0400 Body weight 95 kg MD Desmond Alex Work Phone: [facility] 11-18-2023 09:40-0400 Body height 187.96 cm MD Desmond Alex Work Phone: [facility] 11-18-2023 09:40-0400 Body mass index (BMI) [Ratio] 26.3 kg/m2 MD Desmond Alex Work Phone: [facility] 11-18-2023 09:40-0400 Body weight 93 kg MD Desmond Alex Work Phone: [facility] 10-12-2023 11:53-0400 Body height 187.96 cm MD Desmond Alex Work Phone: [facility] 10-12-2023 11:53-0400 Body mass index (BMI) [Ratio] 26.3 kg/m2 MD Desmond Alex Work Phone: [facility] 10-12-2023 11:53-0400 Body weight 93.09 kg MD Desmond Alex Work Phone: [facility] 09-09-2023 15:55-0400 Diastolic blood pressure 72 mm[Hg] MD Desmond Alex Work Phone: [facility] 09-09-2023 15:55-0400 Heart rate 72 /min MD Desmond Alex Work Phone: [facility] 09-09-2023 15:55-0400 Respiratory rate 16 /min MD Desmond Alex Work Phone: [facility] 09-09-2023 15:55-0400 SaO2% (BldA) [Mass fraction] 97 % MD Desmond Alex Work Phone: [facility] 09-09-2023 15:55-0400 Systolic blood pressure 145 mm[Hg] MD Desmond Alex Work Phone: [facility] 09-09-2023 14:09-0400 Inhaled oxygen flow rate 6 L/min MD Desmond Alex Work Phone: [facility] 09-09-2023 14:04-0400 Body temperature 97.1 [degF] MD Desmond Alex Work Phone: [facility] 09-09-2023 11:53-0400 Body height 187.96 cm MD Desmond Alex Work Phone: [facility] 09-09-2023 11:53-0400 Body mass index (BMI) [Ratio] 26.6 kg/m2 MD Desmond Alex Work Phone: [facility] 09-09-2023 11:53-0400 Body weight 93.89 kg MD Desmond Alex Work Phone: [facility] 02-17-2023 13:40-0400 Body height 187.96 cm Boone Gregory Other [employer] Other 02-17-2023 13:40-0400 Body mass index (BMI) [Ratio] 29.14 kg/m2 Boone Gregory Other [employer] Other 02-17-2023 13:40-0400 Body weight 102.97 kg Boone Gregory Other [employer] Other 02-10-2023 14:45-0400 Body height 187.96 cm Nilsa Hampton II Other [employer] Other 02-10-2023 14:45-0400 Body mass index (BMI) [Ratio] 29.01 kg/m2 Nilsa Hampton II Other [employer] Other 02-10-2023 14:45-0400 Body weight 102.51 kg Nilsa Hampton II Other [employer] Other 12-07-2022 12:48-0400 Body temperature 97.5 [degF] ALICIA Patton MD Work Phone: [facility] 12-07-2022 12:48-0400 Body weight 101.15 kg ALICIA Patton MD Work Phone: [facility] 12-07-2022 12:48-0400 Diastolic blood pressure 81 mm[Hg] ALICIA Patton MD Work Phone: [facility] 12-07-2022 12:48-0400 Heart rate 66 /min ALICIA Patton MD Work Phone: [facility] 12-07-2022 12:48-0400 Respiratory rate 18 /min ALICIA Patton MD Work Phone: [facility] 12-07-2022 12:48-0400 SaO2% (BldA) [Mass fraction] 97 % ALICIA Patton MD Work Phone: [facility] 12-07-2022 12:48-0400 Systolic blood pressure 126 mm[Hg] ALICIA Patton MD Work Phone: [facility] 06-16-2022 14:45-0500 Body height 187.96 cm Nilsa Hampton II Other [employer] Other 06-16-2022 14:45-0500 Body mass index (BMI) [Ratio] 26.96 kg/m2 Nilsa Hampton II Other [employer] Other 06-16-2022 14:45-0500 Body weight 95.26 kg Nilsa Hampton II Other [employer] Other 05-19-2022 15:00-0500 Body height 187.96 cm Nilsa Hampton II Other [employer] Other 05-19-2022 15:00-0500 Body mass index (BMI) [Ratio] 26.96 kg/m2 Nilsa Hampton II Other [employer] Other 05-19-2022 15:00-0500 Body weight 95.26 kg Nilsa Hampton II Other [employer] Other 05-04-2022 12:20-0500 Body height 187.96 cm Boone Gregory Other [employer] Other 05-04-2022 12:20-0500 Body mass index (BMI) [Ratio] 26.96 kg/m2 Boone Gregory Other [facility] [employer] Other 05-04-2022 12:20-0500 Body weight 95.26 kg Boone Gregory Other [facility] Other 03-18-2022 18:05-0500 Body temperature 98.4 [degF] MD Desmond Alex Work Phone: [facility] 03-18-2022 18:05-0500 Diastolic blood pressure 70 mm[Hg] MD Desmond Alex Work Phone: [facility] 03-18-2022 18:05-0500 Heart rate 84 /min MD Desmond Alex Work Phone: [facility] 03-18-2022 18:05-0500 Respiratory rate 17 /min MD Desmond Alex Work Phone: [facility] 03-18-2022 18:05-0500 SaO2% (BldA) [Mass fraction] 98 % MD Desmond Alex Work Phone: [facility] 03-18-2022 18:05-0500 Systolic blood pressure 118 mm[Hg] MD Desmond Alex Work Phone: [facility] 03-18-2022 16:01-0500 Body height 187.96 cm MD Desmond Alex Work Phone: [facility] 03-18-2022 16:01-0500 Body weight 95.4 kg MD Desmond Alex Work Phone: [facility] 02-26-2022 17:31-0400 Diastolic blood pressure 54 mm[Hg] MD Desmond Alex Work Phone: [facility] 02-26-2022 17:31-0400 Heart rate 96 /min MD Desmond Alex Work Phone: [facility] 02-26-2022 17:31-0400 Respiratory rate 18 /min MD Desmond Alex Work Phone: [facility] 02-26-2022 17:31-0400 SaO2% (BldA) [Mass fraction] 100 % MD Desmond Alex Work Phone: [facility] 02-26-2022 17:31-0400 Systolic blood pressure 98 mm[Hg] MD Desmond Alex Work Phone: [facility] 02-26-2022 14:14-0400 Body height 187.96 cm MD Desmond Alex Work Phone: [facility] 02-26-2022 14:14-0400 Body temperature 99.9 [degF] MD Desmond Alex Work Phone: [facility] 02-26-2022 14:14-0400 Body weight 98.5 kg MD Desmond Alex Work Phone: [facility] 02-18-2022 12:00-0400 Body height 187.96 cm Boone Gregory Other [employer] [facility] Other 02-18-2022 12:00-0400 Body mass index (BMI) [Ratio] 26.96 kg/m2 Boone Gregory Other [employer] Other 02-18-2022 12:00-0400 Body weight 95.26 kg Boone Gregory Other [employer] [facility] Other 2022 11:42-0400 Body temperature 97.7 [degF] MD Desmond Alex Work Phone: [facility] 2022 11:42-0400 Diastolic blood pressure 83 mm[Hg] MD Desmond Alex Work Phone: [facility] 2022 11:42-0400 Heart rate 76 /min MD Desmond Alex Work Phone: [facility] 2022 11:42-0400 Respiratory rate 20 /min MD Desmond Alex Work Phone: [facility] 2022 11:42-0400 SaO2% (BldA) [Mass fraction] 96 % MD Desmond Alex Work Phone: [facility] 2022 11:42-0400 Systolic blood pressure 135 mm[Hg] MD Desmond Alex Work Phone: [facility] 2022 06:00-0400 Body weight 94.9 kg MD Desmond Alex Work Phone: [facility] 02-04-2022 10:30-0400 Body height 187.96 cm MD Desmond Alex Work Phone: [facility] 02-04-2022 04:00-0400 Inhaled oxygen flow rate 2 L/min MD Desmond Alex Work Phone: [facility] 02-03-2022 11:46-0400 Body mass index (BMI) [Ratio] 27.3 kg/m2 MD Desmond Alex Work Phone: [facility] 01-14-2022 09:40-0400 Body height 187.96 cm Boone Gregory Other [employer] Other 01-14-2022 09:40-0400 Body mass index (BMI) [Ratio] 26.96 kg/m2 Boone Gregory Other [employer] Other 01-14-2022 09:40-0400 Body weight 95.26 kg Boone Gregory Other [employer] Other 12-08-2021 13:20-0400 Body temperature 97.9 [degF] NA Engeler MD Work Phone: [facility] 12-08-2021 13:20-0400 Body weight 94.8 kg ALICIA Patton MD Work Phone: [facility] 12-08-2021 13:20-0400 Diastolic blood pressure 81 mm[Hg] ALICIA Patton MD Work Phone: [facility] 12-08-2021 13:20-0400 Heart rate 64 /min ALICIA Patton MD Work Phone: [facility] 12-08-2021 13:20-0400 Respiratory rate 18 /min ALICIA Patton MD Work Phone: [facility] 12-08-2021 13:20-0400 SaO2% (BldA) [Mass fraction] 98 % ALICIA Patton MD Work Phone: [facility] 12-08-2021 13:20-0400 Systolic blood pressure 139 mm[Hg] ALICIA Patton MD Work Phone: [facility] Encounters Encounter Date Encounter Type Care Provider Facility Start: 02-11-2025 ambulatory Harjit Galvez ty:[facility] Start: 01-23-2025 End: 01-23-2025 ambulatory Desmond Alex MD Work Phone: [facility] Work Phone: Start: 01-23-2025 End: 01-23-2025 Patient encounter procedure Nilsa Kelsey MD -[facility] Work Phone: Start: 11-01-2024 End: 11-01-2024 ambulatory Desmond Alex MD Work Phone: [facility] Work Phone: Start: 11-01-2024 End: 11-01-2024 Patient encounter procedure Nilsa Kelsey MD -[facility] Work Phone: Start: 11-01-2024 End: 11-01-2024 Patient encounter procedure Nilsa Kelsey MD -[facility] Start: 11-01-2024 End: 11-01-2024 ambulatory Desmond Alex MD Work Phone: [facility] Work Phone: Start: 02-16-2024 End: 02-16-2024 Patient encounter procedure MD Desmond Alex Work Phone: [facility] Neurosurgery Work Phone: Start: 02-16-2024 End: 02-16-2024 ambulatory MD Desmond Alex Work Phone: [facility] Work Phone: Start: 2024 End: 2024 ambulatory Harjit MUELLER Facility:[facility] Start: 01-24-2024 End: 01-24-2024 ambulatory DESMOND ALEX Facility:[facility] Start: 01-24-2024 End: 01-24-2024 Patient encounter procedure Reta Patton MD Work Phone: Radiation Oncology Comment on above: History of prostate cancer (Primary Dx) Start: 01-19-2024 End: 01-19-2024 ambulatory MD Desmond Alex Work Phone: [facility] Work Phone: Start: 01-19-2024 End: 01-19-2024 Patient encounter procedure MD Desmond Alex Work Phone: [facility] Work Phone: Start: 01-19-2024 End: 01-19-2024 Patient encounter procedure MD Desmond Alex Work Phone: [facility] Start: 01-19-2024 End: 01-19-2024 ambulatory MD Desmond Alex Work Phone: [facility] Work Phone: Start: 01-17-2024 End: 01-17-2024 Clinisync Result Encounter Generic External Data Provider [facility] External Department Unsolicited Start: 01-17-2024 End: 01-17-2024 Clinisync Result Encounter Generic External Data Provider [facility] External Department Unsolicited Start: 01-03-2024 ambulatory [facility] Start: 12-22-2023 End: 01-01-2024 ambulatory [facility] Start: 12-21-2023 End: 12-21-2023 ambulatory MD Desmond Alex Work Phone: [facility] Work Phone: Start: 12-21-2023 End: 12-21-2023 Patient encounter procedure MD Desmond Alex Work Phone: [facility] Work Phone: Start: 12-05-2023 Non-patient / Non-visit MD Anna Alex Work Phone: [facility] Work Phone: Start: 12-05-2023 End: 12-05-2023 Admission to same day surgery center MD Desmond Alex Work Phone: [facility] [place] Start: 12-05-2023 End: 12-05-2023 ambulatory MD Desmond Alex Work Phone: [facility] Work Phone: Start: 11-25-2023 End: 11-25-2023 ambulatory MD Desmond Alex Work Phone: [facility] Work Phone: Start: 11-25-2023 End: 11-25-2023 Patient encounter procedure MD Desmond Alex Work Phone: [facility] Work Phone: Start: 11-21-2023 End: 11-21-2023 Patient encounter procedure MD Desmond Alex Work Phone: [facility]Pre-Surgical Testing Work Phone: Start: 11-21-2023 End: 11-21-2023 ambulatory MD Desmond Alex Work Phone: [facility] Work Phone: Start: 11-21-2023 Encounter for preprocedural laboratory examination Nilsa Vargas [facility] Start: 11-18-2023 End: 11-18-2023 ambulatory MD Desmond Alex Work Phone: [facility] Work Phone: Start: 11-18-2023 End: 11-18-2023 Patient encounter procedure MD Desmond Alex Work Phone: [facility] Work Phone: Start: 11-18-2023 End: 11-18-2023 ambulatory MD Desmond Alex Work Phone: [facility] Work Phone: Start: 11-18-2023 End: 11-18-2023 Discharged Recurring MD Desmond Alex Work Phone: [facility]-Physical Therapy [place] Start: 11-18-2023 Registered Recurring MD Desmond dailey Work Phone: [facility] [place] Start: 10-27-2023 End: 10-27-2023 ambulatory DESMOND ALEX Not Available Start: 10-18-2023 End: 10-18-2023 ambulatory ROHAN NARAYAN Not Available Start: 10-12-2023 End: 10-12-2023 ambulatory MD Desmond Alex Work Phone: [facility] Work Phone: Start: 10-12-2023 End: 10-12-2023 Patient encounter procedure MD Desmond Alex Work Phone: [facility] [place] Work Phone: Start: 10-12-2023 End: 10-12-2023 ambulatory MD Desmond Alxe Work Phone: [facility] Work Phone: Start: 10-12-2023 End: 10-12-2023 Patient encounter procedure MD Desmond Alex Work Phone: [facility] Work Phone: Start: 09-20-2023 End: 09-20-2023 ambulatory ROHAN NARAYAN Not Available Start: 09-09-2023 End: 09-09-2023 Admission to same day surgery center MD Desmond Alex Work Phone: [facility] [place] Start: 09-09-2023 End: 09-09-2023 ambulatory MD Desmond Alex Work Phone: [facility] Work Phone: Start: 09-06-2023 End: 09-06-2023 ambulatory MD Desmond Alex Work Phone: [facility] Work Phone: Start: 09-06-2023 End: 09-06-2023 Patient encounter procedure MD Desmond Alex Work Phone: [facility] Work Phone: Start: 09-06-2023 End: 09-06-2023 ambulatory ROHAN NARAYAN Not Available Start: 08-05-2023 Preprocedural examination done Generic Provider [facility] Start: 08-05-2023 End: 08-05-2023 ambulatory DESMOND ALEX Not Available Start: 06-30-2023 End: 06-30-2023 Patient encounter procedure MD Desmond Alex [facility] Work Phone: Start: 02-17-2023 Office outpatient vi sit 15 minutes Boone Gregory [facility] Neurosurgery Start: 02-17-2023 End: 02-17-2023 ambulatory MD Desmond Alex Work Phone: [facility] Work Phone: Start: 02-17-2023 End: 02-17-2023 Patient encounter procedure MD Desmond Alex Work Phone: [facility] [place] Work Phone: Start: 02-10-2023 End: 02-10-2023 ambulatory Nilsa Hampton II Other [employer] Other Start: 02-10-2023 Office outpatient vi sit 25 minutes Nilsa Michele II [facility] Start: 12-07-2022 End: 12-07-2022 Patient encounter procedure Reta Patton MD Work Phone: Radiation Oncology Comment on above: History of prostate cancer (Primary Dx) Start: 11-08-2022 End: 11-08-2022 ambulatory Nilsa Hampton II Other [employer] Other Start: 11-08-2022 Telephone encounter Nilsa Michele II [facility] Start: 10-01-2022 End: 10-01-2022 ambulatory Nilsa Hampton II Other [employer] Other Start: 10-01-2022 Encounter by [employer] link Nilsa Hampton II [facility] Start: 09-13-2022 End: 09-13-2022 ambulatory Nilsa Michele II Other [employer] Other Start: 09-13-2022 Encounter by [employer]ors[employer] r link Nilsa Hampton II [facility] Start: 09-08-2022 End: 09-09-2022 ambulatory DESMOND ALEX Facility:[facility] Start: 07-08-2022 End: 07-08-2022 ambulatory MD Desmond Alex Work Phone: [facility] Work Phone: Start: 07-08-2022 End: 07-08-2022 Patient encounter procedure MD Desmond Alex Work Phone: [facility] [place] Work Phone: Start: 06-16-2022 End: 06-16-2022 ambulatory Nilsa Mauriciole II Other [employer] Other Start: 06-16-2022 Office outpatient vi sit 25 minutes Nilsa Vargas II [facility] Start: 05-19-2022 End: 05-19-2022 ambulatory Nilsa Mauriciole II Other [employer] Other Start: 05-19-2022 [facility] visit new patient Nilsa Mauricio le II [facility] Start: 05-19-2022 Telephone encounter Nilsa Vargas II [facility] Start: 05-19-2022 End: 05-19-2022 Patient encounter procedure MD Desmond Alex Work Phone: [facility] Start: 05-04-2022 Postop follow up vis it related to original px Boone Gregory [facility] Neurosurgery Start: 05-04-2022 End: 05-04-2022 ambulatory MD Desmond Alex Work Phone: [facility] Work Phone: Start: 05-04-2022 End: 05-04-2022 Patient encounter procedure MD Desmond Alex Work Phone: [facility] [place] Work Phone: Start: 03-22-2022 End: 03-22-2022 ambulatory Aiden Donald Other [employer] Other Start: 03-22-2022 Telephone encounter Aiden Stovall [facility] Vascular Surgery Start: 03-21-2022 End: 03-21-2022 ambulatory Boone Gregory Other [employer] Other Start: 03-21-2022 Encounter by compute marky Gregory [facility] Neurosurgery Start: 03-18-2022 End: 03-18-2022 Emergency department patient visit MD Desmond Alex Work Phone: [facility] Start: 03-18-2022 End: 03-18-2022 ambulatory Boone Gregory Other [employer] Other Start: 03-18-2022 Encounter by compute marky Gregory [facility] Neurosurgery Start: 03-17-2022 End: 03-17-2022 ambulatory Boone Gregory Other [facility] Other Start: 03-17-2022 Encounter by compute marky Gregory [facility] Neurosurgery Start: 03-17-2022 Telephone encounter Boone Gregory [facility] Neurosurgery Start: 03-15-2022 End: 03-15-2022 ambulatory Boone Gregory Other [facility] Other Start: 03-15-2022 Encounter by compute marky Gregory [facility] Neurosurgery Start: 03-02-2022 End: 03-02-2022 ambulatory Boone Gregory Other [facility] Other Start: 03-02-2022 Encounter by compute marky Gregory [facility] Neurosurgery Start: 03-01-2022 End: 03-01-2022 ambulatory Boone Gregory Other [facility] [employer] Other Start: 03-01-2022 Telephone encounter Boone Gregory [facility] Neurosurgery Start: 02-26-2022 End: 02-26-2022 Emergency department patient visit MD Desmond Alex Work Phone: [facility] Start: 02-18-2022 Postop follow up vis it related to original px Boone Gregory [facility] Neurosurgery Start: 02-18-2022 End: 02-18-2022 ambulatory MD Desmond Alex Work Phone: [facility] Work Phone: Start: 02-18-2022 End: 02-18-2022 Patient encounter procedure MD Desmond Alex Work Phone: [facility] Start: 02-03-2022 End: 2022 Admission to same day surgery center MD Desmond Alex Work Phone: [facility] [place] Start: 02-03-2022 End: 2022 ambulatory MD Desmond Alex Work Phone: [facility] Work Phone: Start: 02-01-2022 End: 02-01-2022 Patient encounter procedure MD Desmond Alex Work Phone: [facility] Start: 01-28-2022 (DME) DME Boone Gregory [facility] Neurosurgery Start: 01-28-2022 End: 01-28-2022 ambulatory Boone Gregory Other [employer] Other Start: 01-20-2022 End: 01-20-2022 Patient encounter procedure MD Desmond Alex Work Phone: [facility] Start: 01-14-2022 End: 01-14-2022 ambulatory Boone Gregory Other [facility] Other Start: 01-14-2022 Office outpatient ne w 60 minutes Boone Gregory [facility] Neurosurgery Start: 01-13-2022 End: 01-13-2022 Patient encounter procedure MD Desmond Alex Work Phone: [facility] Start: 12-25-2021 End: 12-26-2021 ambulatory DESMOND ALEX Facility: Start: 12-08-2021 End: 12-08-2021 Patient encounter procedure Reta Patton MD Work Phone: [facility] Oncology Comment on above: Prostate cancer (HCC ) (Primary Dx) Start: 12-01-2021 End: 12-02-[address] VALERIA PATTON Facility:[facility] Start: 09-23-2017 Ambulatory [facility] Procedures Date Procedure Procedure Detail Performing Clinician Start: 11-01-2024 Plain x-ray of pelvi s and lower extremity Desmond Alex MD Work Phone: Start: 02-16-2024 X-ray of lumbar spin e, four views MD Desmond Alex Work Phone: Start: 01-19-2024 Plain X-ray of left hip MD Desmond Alex Work Phone: Start: 01-17-2024 MHPT PSA, DIAGNOSTIC [employer] External Data Provider Start: 01-17-2024 PSA screening [facility] Provi ke[facility] Start: 12-05-2023 Total replacement of left hip joint MD Desmond Alex Work Phone: Start: 12-05-2023 Plain X-ray of left hip MD Desmond Alex Work Phone: Start: 12-05-2023 Plain X-ray of left hip MD Desmond Alex Work Phone: Start: 11-21-2023 Antibody screen Desmond snyder Comment on above: Order Comment: Date of Surgery: [id number] Result Comment: PERF ORMED BY: [address] [place] [address] PATHOLOGIST [employer] MACHINE OPERATOR BOGDAN SERRANO M.D. Start: 10-12-2023 Methicillin resistan t Staphylococcus aureus culture MD Desmond Alex Work Phone: Start: 09-09-2023 Repair of right ingu inal hernia using surgical mesh MD Desmond Alex Work Phone: Start: 06-30-2023 Plain X-ray of left hip MD Desmond Alex Work Phone: Start: 02-17-2023 X-ray of lumbar spin e, six views including bending views MD Desmond Alex Work Phone: Start: 07-08-2022 X-ray of lumbar spin e, four views MD Desmond Alex Work Phone: Start: 05-19-2022 Plain X-ray of left hip MD Desmond Alex Work Phone: Start: 05-04-2022 X-ray of lumbar spin e, four views MD Desmond Alex Work Phone: Start: 03-18-2022 Duplex scan of lower limb veins MD Desmond Alex Work Phone: Start: 03-18-2022 Plain chest X-ray MD Estella Alex Work Phone: Start: 03-18-2022 Urine culture MD Desmond dailey Work Phone: Start: 02-26-2022 X-ray of lumbar spin e, two or three views MD Desmond Alex Work Phone: Start: 02-26-2022 Plain chest X-ray MD Estella corley Evar Work Phone: Start: 02-26-2022 Blood culture for ba cteria, including anaerobic screen MD Desmond Alex Work Phone: Start: 02-26-2022 SARS-CoV-2, Influenz a & RSV (PCR) MD Desmond Alex Work Phone: Start: 02-26-2022 Urine culture MD Desmond dailey Work Phone: Start: 02-18-2022 X-ray of lumbar spin e, two or three views MD Desmond Alex Work Phone: Start: 02-04-2022 Insertion of cathete r into urinary bladder MD Desmond Alex Work Phone: Start: 02-03-2022 X-ray of lumbar spin e, two or three views MD Desmond Alex Work Phone: Start: 02-03-2022 OR Lumbar Laminectom y w/Fix Implants (Not Applicable) MD Desmond Alex Work Phone: Start: 02-03-2022 OR Lumbar Laminectom y w/Fix Implants (Not Applicable) MD Desmond Alex Work Phone: Start: 01-13-2022 X-ray of lumbar spin e, six views including bending views MD Desmond Alex Work Phone: Start: 12-06-2021 Adult depression scr eening assessment NA Abdi SAAVEDRA Work Phone: Start: 12-01-2021 End: 12-01-2021 PSA screening [facility] Provider Comment on above: Performed By: #### P SAD #### [facility] [address] [place] [address] Dr. Kellie Salazar Blood culture for ba cteria, including anaerobic screen MD Desmond Alex Work Phone: Urine culture MD Desmond palm Work Phone: Plan of Treatment Date Care Activity Detail Author Start: 09-05-2026 Diabetes Screening Diabetes Screenin g [facility] Start: 01-22-2025 End: 01-22-2025 Patient encounter procedure 01/22/2025 1:45 PM EDT Office Visit Radiation Oncology [address] [place] [address] [place] [address] Reta Patton MD [address] [place] [address] [place] [address] 2 yr rv Radiation Oncology Comment on above: 2 yr rv Start: 11-01-2024 Plain X-ray of left hip XR hip LT min 2V(w/wo pelvis)* [facility] Start: 11-01-2024 XR Hip - left 2 Views F [facility] Start: 02-16-2024 X-ray of lumbar spin e, four views XR lumbar spine AP/LAT/FLX/EXT [facility] Start: 01-24-2024 End: 04-24-2024 Prostate specific Ag [Mass/volume] in Serum or Plasma PROSTATE-SPECIFIC ANTIGEN DIAGNOSTIC Lab Routine History of prostate cancer Expected: 01/24/2024, Expires: 04/24/2024 [facility] Work Phone: Comment on above: Expected: 01/24/2024 , Expires: 04/24/2024 Start: 01-19-2024 Plain X-ray of left hip XR hip LT min 2V(w/wo pelvis)* [facility] Start: 01-19-2024 XR Hip - left 2 Views F [facility] Start: 01-01-2024 Covid-19 Vaccine ( season) Covid-19 Vaccine () [facility] Start: 01-01-2024 Influenza vaccination Influenza Vacc ine (#1) [facility] Start: 12-08-2023 End: 02-07-2024 Prostate specific Ag [Mass/volume] in Serum or Plasma PSA/PROSTSPECAG DIAG Lab Routine History of prostate cancer Expected: 12/08/2023 (Approximate), Expires: 02/07/2024 [facility] Work Phone: Comment on above: Expected: 12/08/2023 (Approximate), Expires: 02/07/2024 Start: 12-05-2023 [facility] Start: 12-05-2023 Physical therapy procedure [facility] Start: 12-05-2023 Hospital admission [facility] Start: 12-05-2023 [facility] Start: 11-21-2023 [facility] Start: 10-12-2023 Methicillin resistan t Staphylococcus aureus [Presence] in Unspecified specimen by Organism specific culture [facility] Start: 10-12-2023 [facility] Start: 10-12-2023 MRSA Culture MRSA Culture [facility] Start: 09-09-2023 [facility] Start: 09-09-2023 [facility] Start: 05-02-2023 Advance Directive Discussion Advance Directive Discussion [facility] Start: 12-31-2022 Influenza vaccination INFLUENZA (#1) [facility] Start: 12-06-2022 Adult depression screening assessment DEPRESSION SCREENING [facility] Start: 06-10-2022 End: 08-10-2022 Prostate specific Ag [Mass/volume] in Serum or Plasma PSA/PROSTSPECAG DIAG Lab Routine Prostate cancer (HCC) Expected: 06/10/2022 (Approximate), Expires: 08/10/2022 [facility] Work Phone: Comment on above: Expected: 06/10/2022 (Approximate), Expires: 08/10/2022 Start: 05-02-2022 ADVANCE DIRECTIVE DISCUSSION ADVANCE DIRECTIVE DISCUSSION [facility] Start: 05-02-2022 DEPRESSION ASSESSMENT DEPRESSION ASS ESSMENT [facility] Start: 03-18-2022 [facility] Start: 03-18-2022 Duplex scan of lower limb veins US venous duplex LE LT [facility] Start: 03-18-2022 US Lower extremity v ein - left [facility] Start: 2022 [facility] Start: 02-03-2022 X-ray of lumbar spin e, two or three views XR lumbar spine 2-3V* [facility] Start: 02-03-2022 XR Lumbar spine 2 or 3 Views [facility] Start: 01-20-2022 [facility] Start: 12-31-2021 Influenza vaccination INFLUENZA (#1) [facility] Start: 11-20-2021 COVID-19 VACCINE (5 - Pfizer series) COVID-19 VACCINE (5 - Pfizer series) [facility] Start: 05-02-2021 ADVANCE DIRECTIVE DISCUSSION ADVANCE DIRECTIVE DISCUSSION [facility] Start: 2021 RSV Vaccine (1 - 1-d ose 75+ series) RSV Vaccine (1 - 1-dose 75+ series) [facility] Start: 2011 Pneumococcal Vaccine : 65+ (1 of 1 - PCV) Pneumococcal Vaccine: 65+ (1 of 1 - PCV) [facility] Start: 2011 Pneumococcal Vaccine : 65+ Years (1 of 1 - PCV) Pneumococcal Vaccine: 65+ Years (1 of 1 - PCV) [facility] Start: 2011 PNEUMOCOCCAL: 65+ (1 - PCV) PNEUMOCOCCAL: 65+ (1 - PCV) [facility] Start: 02-07-1996 SHINGRIX VACCINE (1 of 2) SHINGRIX VACCINE (1 of 2) [facility] Start: 1991 COLOGUARD (FIT-DNA) COLOGUARD (FIT-D NA) [facility] Start: 1991 Colonoscopy COLONOSCOPY [facility] Start: 1991 COLORECTAL CANCER SCREENING COLORECTAL CANCER SCREENING [facility] Start: [address] COLONOGRAPHY [facility] Start: 1991 DIABETES SCREEN DIABETES SCREEN [facility] Start: 1991 FECAL OCCULT BLOOD FECAL OCCULT BLOO D [facility] Start: 1991 SIGMOIDOSCOPY SIGMOIDOSCOPY [facility] Start: 1981 LIPID SCREEN LIPID SCREEN [facility] Start: 1965 Urine microalbumin profile [facility] Start: 02-07-1964 Anxiety Screening Anxiety Screening [facility] Start: 02-07-1964 Depression Screening Depression Scre ening [facility] [facility] Start: 02-07-1964 HEPATITIS C SCREENING HEPATITIS C SC [facility] Start: 02-07-1964 Hepatitis C screening Hepatitis C [facility] Start: 1945 Medicare Annual Well ness (AWV) Medicare Annual Wellness (AWV) [facility] Bacteria identified in Blood by Culture Blood Culture [facility] Bacteria identified in Urine by Culture Urine Culture [facility] Cotinine [Mass/volum e] in Serum or Plasma [facility] Glucose measurement estimated from glycated hemoglobin [facility] Hemoglobin [Mass/vol ume] in Blood [facility] Methicillin resistan t Staphylococcus aureus [Presence] in Unspecified specimen by Organism specific culture [facility] Nicotine [Mass/volum e] in Serum or Plasma [facility] Patient Education [facility] Work Phone: Patient referral [facility] Work Phone: XR Hip - right 2 Views [facility] [place] Immunizations Immunization Date Immunization Notes Care Provider Fa cility 09-25-2021 COVID-19 Comirnaty (Pfizer) Tri-Sucrose 12+ MD Desmond Alex Work Phone: [facility] 09-25-2021 COVID-19 mRNA, Comirnaty (Pfizer) MD Desmond Alex Work Phone: [facility] 02-20-2021 COVID-19 mRNA, Mercedes (Pfizer) MD Desmond Alex Work Phone: [facility] 06-23-2020 COVID-19 vaccine, ag e 12+ yr (PFIZER-BIONTECH - PURPLE TOP) ALICIA Patton MD Work Phone: [facility] 06-03-2020 COVID-19 vaccine, ag e 12+ yr (PFIZER-BIONTECH - PURPLE TOP) ALICIA Patton MD Work Phone: [facility] Payers Date Payer Category Payer Self-pay [id number] 2022 Unknown AARP AARP [id number] 2022-Present [address] [place] [address] [id number] 2016 Private Health Insurance [facility] AARP SUPPLEMENT [id number] 2016-Present [phone] [address] [place] [address] Indemnity [id number] 2011 Medicare [id number] 1959 Medicare [id number] 1959 Unknown [id number] 1946 Unknown [id number] 2.16.840.1.322566.3.579.2 .593 1946 Unknown [id number] 2.16.840.1.801357.3.579.2 .593 1946 Unknown [id number] 2.16.840.1.063680.3.579.2 .593 1946 Unknown [id number] 2.16.840.1.322496.3.579.2 .1259 1946 Unknown [id number] 2.16.840.1.711811.3.579.2 .1259 1946 Unknown [id number] 2.16.840.1.771725.3.579.2 .1259 1946 Unknown [id number] 2.16.840.1.191139.3.579.2 .1259 1946 Unknown [id number] 2.16.840.1.101387.3.579.2 .1259 1946 Unknown [id number] 2..840.1.962217.3.579.2 .1286 1946 Unknown [id number] 2.840.1.612816.3.579.2 .1286 1946 Unknown [id number] 2.840.1.493041.3.579.2 .727 1946 Unknown [id number] 2.840.1.608411.3.579.2 .727 Medicare Medicare Nonpatient [id number] Unknown [id number] 2.840.1.191649.3.579.2 .531 Unknown [id number] 2.840.1.536545.3.579.2 .531 Unknown [id number] 2.840.1.364354.3.579.2 .531 Unknown [id number] 2.840.1.353499.3.579.2 .531 Unknown [id number] 2.840.1.223595.3.579.2 .531 Social History Date Type Detail Facility Start: 07-14-2017 End: 12-05-2023 Tobacco smoking status [facility] Ex-smoker [facility] Start: 12-16-1970 End: 12-16-1985 History of tobacco use Current smoker [facility] Start: 12-16-1970 End: 12-16-1985 History of tobacco use Cigarette Smoker [facility] Start: 07-14-2017 End: 08-02-2023 Cigarettes smoked current (pack per day) - Reported 1 [facility] Start: 07-14-2017 End: 09-06-2023 Tobacco use and exposure Smokeless tobacco non-user [facility] Start: 01-20-2021 End: 01-24-2024 Alcohol intake Current non-drinker of alcohol (finding) [facility] Start: 1945 Sex Assigned At Male [facility] Start: 11-28-2021 End: 12-08-2021 Exposure to SARS-CoV-2 (event) Not sure [facility] Start: 01-20-2021 End: 08-02-2023 Sex Assigned At [facility] Start: 03-18-2022 End: 03-18-2022 Tobacco smoking status NHIS Never smoked tobacco (finding) [facility] Adult Depression Screening Assessment 0 [facility] Start: 06-03-2021 Gender identity Identifies as male gender (finding) [facility] Start: 06-03-2021 Sexual orientation Heterosexual (finding) [facility] Start: 10-27-2023 Alcoholic beverage intake Ex-drinker (finding) [facility] Do you belong to any clubs or organizations such as rastafarian groups, unions, fraternal or athletic groups, or school groups? No [facility] Are you now , , , , never or living with a partner? [facility] How often to you hav e a drink containing alcohol? Never [facility] Do you feel stress - tense, restless, nervous, or anxious, or unable to sleep at night because your mind is troubled all the time - these days [OSQ] Only a little [facility] (I/We) worried wheth er (my/our) food would run out before (I/we) got money to buy more. Never true [facility] Start: 09-06-2023 Alcohol Comment Quit drinking 1979 [facility] Sex Male (finding) [facility] Medical Equipment Procedure Code Equipment Code Equipment Origin al Text Equipment Identifier Dates Repair, hernia, inguinal, with mesh Abdominal hernia surgical mesh, synthetic polymer, non-bioabsorbable [id number] FDA Start: 09-09-2023 Arthroplasty, hip, total, anterior approach Acetabular shell ()[id number] FDA Start: 12-05-2023 Arthroplasty, hip, total, anterior approach Ceramic femoral head prosthesis ()[id number] FDA Start: 12-05-2023 Arthroplasty, hip, total, anterior approach Coated hip femur prosthesis, modular ()[id number] FDA Start: 12-05-2023 Arthroplasty, hip, total, anterior approach Non-constrained polyethylene acetabular liner ()[id number] FDA Start: 12-05-2023 Spinal fusion gr aft kit ()[id number] FDA Start: 02-03-2022 Bone-screw inter nal spinal fixation system, non-sterile +[id number] FDA Start: 02-03-2022 Bone-screw inter nal spinal fixation system, non-sterile [id number] FDA Start: 02-03-2022 Bone-screw inter nal spinal fixation system, non-sterile +[id number] FDA Start: 02-03-2022 Polymeric spinal fusion cage, sterile ()[id number] FDA Start: 02-03-2022 Polymeric spinal fusion cage, non-sterile ()[id number] FDA Start: 02-03-2022 Bone-screw inter nal spinal fixation system, non-sterile +[id number] FDA Start: 02-03-2022 Goals Date Patient Goal Desired Activity /State Functional Status Date Assessment Result Facility 2022 Functional status Patient is Pro gressing Toward Baseline [facility] Work Phone: Mental Status Date Assessment Result Facility 2022 Cognitive function Cognitive Sta tus Patient at Baseline [facility] Work Phone: Clinical Notes 12-16-2016 to 11-01-2024 Note Date & Type Note Facility 11-01-2024 Evaluation note Diagnosis Onset Date Resolution Aftercare following left hip joint replacement surgery acute November 01, 2024 12:33pm Primary osteoarthritis of right hip acute November 01, 2024 12:33pm [facility] Work Phone: [phone] 210-134810-07-2024 NotePatient Education Oncology Prostate Cancer Screening Prostate cancer screening is testing that is done to check for the presence of prostate cancer in men. The prostate gland is a walnut-sized gland that is located below the bladder and in front of therectum in males. The function of the prostate is to add fluid to semen during ejaculation. Prostatecancer is one of the most common types of cancer in men. Who should have prostate cancer screening? Screening recommendations vary based on age and other risk factors, as well as between the professional organizations who make the recommendations. In general, screening is recommended if: ? You are age 50 to 70 and have an average risk for prostate cancer. You should talk with your health care provider about your need for screening and how often screening should be done. Because most prostate cancers are slow growing and will not cause , screening in this age group is generallyreserved for men who have a 10- to 15-year life expectancy. ? You are younger than age 50, and you have these risk factors: ? Having a father, brother, or uncle who has been diagnosed with prostate cancer. The risk is higher if your family member's cancer occurred at an early age or if you have multiple family members with prostate cancer at an early age. ? Being a male who is Black or is of [place] or sub-Saharan descent. In general, screening is not recommended if: ? You are younger than age 40. ? You are between the ages of 40 and 49 and you have no risk factors. ? You are 70 years of age or older. At this age, the risks that screening can cause are greater than the benefits that it may provide. If you are at high risk for prostate cancer, your health care provider may recommend that you have screenings more often or that you start screening at a younger age. How is screening for prostate cancer done? The recommended prostate cancer screening test is a blood test called the prostate-specific antigen(PSA) test. PSA is a protein that is made in the prostate. As you age, your prostate naturally produces more PSA. Abnormally high PSA levels may be caused by: ? Prostate cancer. ? An enlarged prostate that is not caused by cancer (benign prostatic hyperplasia, or BPH). This condition is very common in older men. ? A prostate gland infection (prostatitis) or urinary tract infection. ? Certain medicines such as male hormones (like testosterone) or other medicines that raise testosterone levels. A rectal exam may be done as part of prostate cancer screening to help provide information about the size of your prostate gland. When a rectal exam is performed, it should be done after the PSA level is drawn to avoid any effect on the results. Depending on the PSA results, you may need more tests, such as: ? A physical exam to check the size of your prostate gland, if not done as part of screening. ? Blood and imaging tests. ? A procedure to remove tissue samples from your prostate gland for testing (biopsy). This is the only way to know for certain if you have prostate cancer. What are the benefits of prostate cancer screening? ? Screening can help to identify cancer at an early stage, before symptoms start and when the cancer can be treated more easily. ? There is a small chance that screening may lower your risk of dying from prostate cancer. The chance is small because prostate cancer is a slow-growing cancer, and most men with prostate cancer diefrom a different cause. What are the risks of prostate cancer screening? The main risk of prostate cancer screening is diagnosing and treating prostate cancer that would never have caused any symptoms or problems. This is called overdiagnosisand overtreatment. PSA screening cannot tell you if your PSA is high due to cancer or a different cause. A prostate biopsy is the only procedure to diagnose prostate cancer. Even the results of a biopsy may not tell you if your cancer needs to be treated. Slow-growing prostate cancer may not need any treatment other than monitoring, so diagnosing and treating it may cause unnecessary stress or other side effects. Questions to ask your health care provider ? When should I start prostate cancer screening? ? What is my risk for prostate cancer? ? How often do I need screening? ? What type of screening tests do I need? ? How do I get my test results? ? What do my results mean? ? Do I need treatment? Where to find more information ? The [place] [employer]: www.cancer.org ? [place] [employer]: www.auanet.org Contact a health care provider if: ? You have difficulty urinating. ? You have pain when you urinate or ejaculate. ? You have blood in your urine or semen. ? You have pain in your back or in the area of your prostate. Summary ? Prostate cancer is a common type of cancer in men. The prostate gland is located below the bladder and in front of the rectum. (more content not included)...[facility]09-24-2024 History of Present illness Narrative* Reta Patton MD - 01/24/2024 1:45 PM EDT Radiation Oncology - Follow Up Note PATIENT NAME: Eduardo Montalvo PATIENT DIAGNOSIS: DIAGNOSIS: Prostate adenocarcinoma, initial PSA 7.65, biopsy Halley score 3 + 3 = 6 (grade group 1), clinical stage I, [id number] RADIATION SUMMARY:DATES OF TREATMENT: 12/07/2017 to 02/07/2018 AREA TREATED: Pelvis DELIVERED DOSE: Area: Prostate SV 5,040cGy in 28 fractions, 2 Arcs, IMRT(VMAT), 6MV with daily CBCT DELIVERED DOSE: Area: Prostate 2,880cGy in 16 fractions, 2 Arcs, IMRT (VMAT), 6MV with daily CBCT TOTAL: 7,920cGy in 44 fractions ELAPSED TIME: 62 days. INTERVAL HISTORY: Doing well. Denies any new issues or concerns. PSA 01/20/2021: 1.7 ng/ml PSA. (no units) Date Value 01/17/2024 0.55 12/01/2021 0.68 05/27/2021 0.78 05/27/2021 0.78 ALLERGIES No Known Allergies meloxicam (MOBIC) 15 mg tablet Take 1 tablet by mouth every afternoon. cranberry conc/ascorbic acid (CRANBERRY PLUS VITAMIN C ORAL) Take by mouth. aspirin 325 mg tablet Take 325 mg by mouth once daily. docusate sodium (STOOL SOFTENER ORAL) Take by mouth. acetaminophen (TYLENOL ARTHRITIS PAIN ORAL) Take by mouth. tamsulosin (FLOMAX) 0.4 mg Take 1 capsule by mouth daily at bedtime. REVIEW OF SYSTEMS: D/N = na Hematuria: No Catheter use: no AUA: 4 Medications to aid urination: y Bowel movement frequency: 1/day Bowel movement quality: normal Blood per rectum: none PHYSICAL EXAM: BP 130/82 Pulse (!) 56 Temp 36.6 C (97.8 F) (Temporal) Resp 16 Wt 96.2 kg (212 lb 1.3 oz) SpO2 99% BMI 27.23 kg/m KPS:100 General appearance: Alert and oriented. No acute distress. Rectal exam def Extremities: No deformities, edema, skin discoloration, clubbing or cyanosis. Lymph Nodes: No cervical lymphadenopathy, No supraclavicular lymphadenopathy, No axillary lymphadenopathy. Skin: Skin color, texture, turgor normal, no suspicious rashes or lesions. ASSESSMENT/PLAN: Prostate adenocarcinoma, initial PSA 7.65, biopsy Halley score 3 + 3 = 6 (grade group 1), clinical stage I, [id number] , prior definitive radiation completed January 2018. Patient doing well , PSA remains low. Plan followup in 1 year with continued PSA surveillance. Signed by: Reta Patton MD cc: Desmond Alex MD ([facility]) Portions of the above note extracted and edited from previous visit as well as active information included in the EMR. [facility] NoteHNO ID: [id number] Author: Reta PATTON MD Service: ? Author Type: Physician Type: Progress Notes Filed: 01/31/2024 14:01 Note Text: Radiation Oncology - Follow Up Note PATIENT NAME: Eduardo Montalvo PATIENT DIAGNOSIS: DIAGNOSIS: Prostate adenocarcinoma, initial PSA 7.65, biopsy [place] score 3 + 3 = 6 (grade group 1), clinical stage I, [id number] RADIATION SUMMARY:DATES OF TREATMENT: 12/07/2017 to 02/07/2018 AREA TREATED: Pelvis DELIVERED DOSE: Area: Prostate SV 5,040cGy in 28 fractions, 2 Arcs, IMRT(VMAT), 6MV with daily CBCT DELIVERED DOSE: Area: Prostate 2,880cGy in 16 fractions, 2 Arcs, IMRT (VMAT), 6MV with daily CBCT TOTAL: 7,920cGy in 44 fractions ELAPSED TIME: 62 days. INTERVAL HISTORY: Doing well. Denies any new issues or concerns. PSA 01/20/2021: 1.7 ng/ml PSA. (no units) Date Value 01/17/2024 0.55 12/01/2021 0.68 05/27/2021 0.78 05/27/2021 0.78 ALLERGIES No Known Allergies meloxicam (MOBIC) 15 mg tablet Take 1 tablet by mouth every afternoon. cranberry conc/ascorbic acid (CRANBERRY PLUS VITAMIN C ORAL) Take by mouth. aspirin 325 mg tablet Take 325 mg by mouth once daily. docusate sodium (STOOL SOFTENER ORAL) Take by mouth. acetaminophen (TYLENOL ARTHRITIS PAIN ORAL) Take by mouth. tamsulosin (FLOMAX) 0.4 mg Take 1 capsule by mouth daily at bedtime. REVIEW OF SYSTEMS: D/N = na Hematuria: No Catheter use: no AUA: 4 Medications to aid urination: y Bowel movement frequency: 1/day Bowel movement quality: normal Blood per rectum: none PHYSICAL EXAM: BP 130/82 Pulse (!) 56 Temp 36.6 ?C (97.8 ?F) (Temporal) Resp 16 Wt 96.2 kg (212 lb 1.3 oz) SpO2 99% BMI 27.23 kg/m? KPS:100 General appearance: Alert and oriented. No acute distress. Rectal exam def Extremities: No deformities, edema, skin discoloration, clubbing or cyanosis. Lymph Nodes: No cervical lymphadenopathy, No supraclavicular lymphadenopathy, No axillary lymphadenopathy. Skin: Skin color, texture, turgor normal, no suspicious rashes or lesions. ASSESSMENT/PLAN: Prostate adenocarcinoma, initial PSA 7.65, biopsy Halley score 3 + 3 = 6 (grade group 1), clinical stage I, [id number] , prior definitive radiation completed January 2018. Patient doing well , PSA remains low. Plan followup in 1 year with continued PSA surveillance. Signed by: Reta Patton MD cc: Desmond Alex MD ([facility]) Portions of the above note extracted and edited from previous visit as well as active information included in the EMR.[facility]09-24-2024 Nurse Note* Ana Loving MA - 01/24/2024 1:38 PM EDT AUA=4 [facility]09-24-2024 Nurse Note* Ana Loving MA - 01/24/2024 1:38 PM EDT AUA=4 documented in [facility] Evaluation note* Encounter Date Diagnosis Assessment Notes Treatment Notes Treatment Clinical Notes Jan, Arthropathy of left hip (ICD-10 - M16.12) Jan, Spondylolisthesis, lumbar region (ICD-10 - M43.16) I independently reviewed the plain x-ray of the lumbar spine and the report. The patient's hardware looks good clinically he has excellent strength in his left foot no pain in the leg it is getting around better and better he apparently needs a hip replacement at some point in the future.This point I will see the patient again in a year with another x-ray. Jan, History of lumbar fusion (ICD-10 - Z98.1) [facility] 10-12-2023 Evaluation note* Encounter Date Diagnosis Assessment Notes Treatment Notes Treatment Clinical Notes Jan, Primary osteoarthritis of left hip (ICD-10 - M16.12) Jan, Other 1. We had a bello g discussion with the patient today concerning their left hip osteoarthritis. The radiographs do show osteoarthritis of the hip. At this time the patient would like to avoid surgical intervention. We did discuss the risk and benefits of surgical versus nonoperative management. The patient would like to proceed with nonoperative management. We discussed that our options include injections, physical therapy, and the consistent use of anti-inflammatories. All 3 of these options, including their risks and benefits, were discussed at length with the patient. 2. Tylenol: Discussed taking Tylenol (acetaminophen). Recommended adjusting their dosing to 1000mg by mouth up to 3 times a day. 3. NSAIDs: Recommended continuing his meloxicam 4. Physical therapy: Discussed formal physical therapy and home regimen. Patient preferred no PT at this time. 5. Injections: Discussed injections as a treatment option. After consent was obtained, the skin was prepped with betadine and alcohol. Ultrasound was utilized to identify the left hip joint. Using sterile technique, 3cc of kenalog and 7cc of bupivicaine was injected into the left hip joint. Patient tolerated the injection well. Images are stored elsewhere. 6. Follow up as needed [facility] 08-08-2023 History of Present illness Narrative* Reta Patton MD - 12/07/2022 1:00 PM EDT Radiation Oncology - Follow Up Note PATIENT NAME: Eduardo Montalvo PATIENT DIAGNOSIS: DIAGNOSIS: Prostate adenocarcinoma, initial PSA 7.65, biopsy Halley score 3 + 3 = 6 (grade group 1), clinical stage I, [id number] RADIATION SUMMARY:DATES OF TREATMENT: 12/07/2017 to 02/07/2018 AREA TREATED: Pelvis DELIVERED DOSE: Area: Prostate SV 5,040cGy in 28 fractions, 2 Arcs, IMRT(VMAT), 6MV with daily CBCT DELIVERED DOSE: Area: Prostate 2,880cGy in 16 fractions, 2 Arcs, IMRT (VMAT), 6MV with daily CBCT TOTAL: 7,920cGy in 44 fractions ELAPSED TIME: 62 days. INTERVAL HISTORY: Doing well. He did have issues with urinary stricture last fall, difficult placement of catheter. Recent UTI without hematuria resolved after antibiotics. Denies any other new problems or concerns. PSA 01/20/2021: 1.7 ng/ml PSA. (no units) Date Value 12/01/2021 0.68 05/27/2021 0.78 05/27/2021 0.78 07/09/2020 1.26 ALLERGIES No Known Allergies meloxicam (MOBIC) 15 mg tablet Take 1 tablet by mouth every afternoon. cranberry conc/ascorbic acid (CRANBERRY PLUS VITAMIN C ORAL) Take by mouth. aspirin 325 mg tablet Take 325 mg by mouth once daily. docusate sodium (STOOL SOFTENER ORAL) Take by mouth. acetaminophen (TYLENOL ARTHRITIS PAIN ORAL) Take by mouth. tamsulosin (FLOMAX) 0.4 mg Take 1 capsule by mouth daily at bedtime. REVIEW OF SYSTEMS: D/N = na Hematuria: No Catheter use: no AUA: 7 Medications to aid urination: y Bowel movement frequency: 1/day Bowel movement quality: normal Blood per rectum: none PHYSICAL EXAM: BP 126/81 Pulse 66 Temp 36.4 C (97.5 F) Resp 18 Wt 101.2 kg (223 lb) SpO2 97% BMI 28.63kg/m KPS:100 General appearance: Alert and oriented. No acute distress. Rectal exam def Extremities: No deformities, edema, skin discoloration, clubbing or cyanosis. Lymph Nodes: No cervical lymphadenopathy, No supraclavicular lymphadenopathy, No axillary lymphadenopathy. Skin: Skin color, texture, turgor normal, no suspicious rashes or lesions. ASSESSMENT/PLAN: Prostate adenocarcinoma, initial PSA 7.65, biopsy [place] score 3 + 3 = 6 (grade group 1), clinical stage I, [id number] , prior definitive radiation completed January 2018. Patient doing well , PSA remains low. Plan followup in 1 year with continued PSA surveillance. Signed by: Reta Patton MD cc: Desmond Alex MD ([facility]) Portions of the above note extracted and edited from previous visit as well as active information included in the EMR. [facility] Nurse Note* Gail Huddleston RN - 12/07/2022 12:50 PM EDT AUA 7 Gail Huddleston RN documented in this [facility]07-10-2023 Evaluation note* Encounter Date Diagnosis Assessment Notes Treatment Notes Treatment Clinical Notes Oct, Primary osteoarthritis of left hip (ICD-10 - M16.12) [facility] 06-02-2023 Evaluation note* Encounter Date Diagnosis Assessment Notes Treatment Notes Treatment Clinical Notes Sep, Primary osteoarthritis of left hip (ICD-10 - M16.12) [facility] 02-15-2023 Evaluation note* Encounter Date Diagnosis Assessment Notes Treatment Notes Treatment Clinical Notes Jun, Arthropathy of left hip (ICD-10 - M16.12) Jun, Primary osteoarthritis of left hip (ICD-10 - M16.12) Jun, Other 1. We had a bello g discussion with the patient today concerning their left hip osteoarthritis. I again explained that the x-rays do demonstrate advanced degenerative osteoarthritic changes of the left hip. I explained that I think some of his pain into his knee/thigh/lateral hip is related to his hip arthritis. While he got some relief from the Medrol Dosepak I recommended an intra-articular steroid injection to further treat his hip arthritis. 2. Tylenol: Discussed taking Tylenol (acetaminophen). Recommended adjusting their dosing to 1000mg by mouth up to 3 times a day. 3. NSAIDs: Still would avoid oral anti-inflammatories secondary to his Eliquis use for DVT. 4. Physical therapy: Discussed formal physical therapy and home regimen. Patient preferred no PT at this time. 5. Injections: Discussed injections as a treatment option. After consent was obtained, the skin was prepped with betadine and alcohol. Ultrasound was utilized to identify the left hip joint. Using sterile technique, 3cc of kenalog and 7cc of bupivicaine was injected into the left hip joint. Patient tolerated the injection well. Images are stored elsewhere. 6. Follow up 3 months [facility] Other 01-18-2023 Evaluation note* Encounter Date Diagnosis Assessment Notes Treatment Notes Treatment Clinical Notes May, Arthropathy of left hip (ICD-10 - M16.12) May, Other I had a long discussion with the patient and his daughter regarding etiology of his symptoms. I explained to him that his x-rays do demonstrate advanced degenerative osteoarthritic changes in his hip. While the majority of his pain that is palpable and identifiable on exam is located more laterally like a greater trochanteric bursitis as well as distally like knee arthritis, I think that given his extensive arthritic changes on x-ray these are more referred type pain. In my opinion, I think that his lateral-based hip pain and leg pain that radiates down to the knee stems from his hip arthritis. While certainly this was present prior to his spinal surgery, the surgery, the recovery, as well as going through a DVT may have exacerbated and accentuated hip arthritis symptoms. As a result, I discussed with him a Medrol Dosepak versus a diagnostic/therapeut ic injection of the left hip joint. Ultimately he and his daughter decided to proceed with a Medrol Dosepak first to try and get some generalized relief. I will plan to see him back in the office in 4 weeks. At that time we will discuss whether or not a left hip intra-articular injection for diagnostic and hopefully therapeutic purposes is an option. [facility] Other 01-03-2023 Evaluation note* Encounter Date Diagnosis Assessment Notes Treatment Notes Treatment Clinical Notes May, Arthropathy of left hip (ICD-10 - M16.12) The patient is 3 months post op. I independently reviewed the plain x-ray of the lumbar spine showing excellent hardware and interbody cage placement. This patient has palpable left hip pain, weightbearing left hip pain, and motion that causes severe left hip pain. He did have a DVT in the left lower extremity previously, and he has some swelling of the left foot which is not a surprise. I think this patient needs to see orthopedics. A referral will be sent. I do not know what to do to help him with his pain, I will try him on some Gabapentin on very low doses, and have explained to the daughter how to start at a very low dose and then add doses as the patient tolerates. My nurse has written down a schedule for them. 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 I will see the patient again in 2 months with an x-ray. I had a long discussion with the a daughter regarding symptoms. She seems to understand. May, Spondylolisthesis, lumbar region (ICD-10 - M43.16) [facility] Other 10-20-2022 Evaluation note* Encounter Date Diagnosis Assessment Notes Treatment Notes Treatment Clinical Notes Jan, Spondylolisthesis, lumbar region (ICD-10 - M43.16) Eduardo is doing very well, he is very happy with his progress. His radicular pain and claudicatory symptoms are completely gone. He does have some occasional nerve healing symptoms. His back pain is minimal. I reviewed the x-ray of his lumbar spine showing good hardware placement and good bony alignment and shared these with him and his daughter. I will see him again in 2 months with another x-ray of his lumbar spine. He is scheduled to see urology on the . I will have him do some physical therapy for gait training and leg strengthening. Jan, Lumbar stenosis with neurogenic claudication (ICD-10 - M48.062) [facility] Other 10-07-2022 Progress note Author [facility] February 05, 2022 8:45am Note Date/Time February 05, 2022 8: 45am [facility] [address] [place] [address] Neurosurgery Progress Note Signed Patient: Eduardo Montalvo MR#: [id number] 52 : 1945 Acct:[id number] Age/Sex: 76 / M Adm Date: 2 Loc: Room: 2C6606-8 Type: REG SDC Attending Dr: Boone Gregory MD Copies to: ~ Date of Service: 02/05/2022 Subjective Subjective HPI: Back is sore left leg is definitely better did have a cramp in his thigh again Exam Physical Exam Vital Signs: Temp Pulse Resp BP Pulse Ox O2 Del Method O2 Flow Rate 97.8 F 68 18 123/70 97 Room Air 2 02/05/22 04:35 02/05/22 04:35 02/05/22 04:35 02/05/22 04:35 02/05/22 04:35 02/05/22 04:35 02/04/22 04:00 Narrative: Patient is alert and oriented with extremity strength at baseline this morning Dressing dry Objective Lab Results Most Recent Labs: 02/05/22 04:28: PHA Creatinine Clear 92.76, Sodium 139, Potassium 4.0, Chloride 101, Carbon Dioxide 28.7, Anion Gap 13.3, BUN 13, Creatinine 0.75, Est GFR ( Amer) > 60, Est GFR (Non-Af Amer) > 60, Glucose 133 H, Calcium 8.9 02/05/22 04:28: Corrected WBC 12.7 H, Uncorrected WBC Count 12.7 H, RBC 4.14, Hgb 12.3 L, Hct 36.1 L, MCV 87.3, MCH 29.7, MCHC 34.0, RDW 14.4, Plt Count 161, MPV 7.1, Neut % (Auto) 85.4, Lymph % (Auto) 5.4, [place] % (Auto) 9.2, Eos % (Auto)0.0, Baso % (Auto) 0.0, Neut # (Auto) 10.8 H, Lymph # (Auto) 0.7 L, Daggett # (Auto) 1.2 H, Eos # (Auto) 0.0, Baso # (Auto) 0.0, Nucleated RBC % (auto) 0.0 Assessment/Plan Assessment/Plan (1) Lumbar stenosis with neurogenic claudication: Plan: Postoperative day #2 the patient is becoming more active he still has moments ofconfusion but is much more oriented he does get pain in his left thigh when moving it is very isolated and infrequent I suspect it is neurogenic. I would like to continue to increase his activity I will discharge home tomorrow morning Code(s): M48.062 - Spinal stenosis, lumbar region with neurogenic claudication Status: Acute (2) Urethral stricture: Code(s): N35.919 - Unspecified urethral stricture, male, unspecified site Status: Acute Documented By: Boone Gregory MD 02/05/22 0840 Signed By: <Electronically signed by MD Boone Gregory> 02/05/22 0845 [facility] Work Phone: 1(705) 598-323810-06-2022 Progress note Author [facility] February 04, 2022 7:48am Note Date/Time February 04, 2022 7: 45am [facility] [address] [place] [address] Neurosurgery Progress Note Signed Patient: Eduardo Montalvo MR#: [id number] 52 : 1945 Acct:[id number] Age/Sex: 76 / M Adm Date: 2 Loc: 4N Room: [address] [place] [address] Type: REG SDC Attending Dr: Boone Gregory MD Copies to: ~ Date of Service: 02/04/2022 Subjective Subjective HPI: Patient states his left leg feels better his back is sore Exam Physical Exam Vital Signs: Temp Pulse Resp BP Pulse Ox O2 Del Method O2 Flow Rate 98.3 F 76 16 142/78 H 98 Room Air 2 02/04/22 04:00 02/04/22 04:00 02/04/22 04:00 02/04/22 04:00 02/04/22 04:00 02/04/22 04:00 02/04/22 04:00 Narrative: The patient may be slightly confused and difficult to tell Questionable left quadricep weakness Dressing dry Alert and cooperative Objective Lab Results Most Recent Labs: 02/04/22 06:01: PHA Creatinine Clear 92.76, Sodium 137, Potassium 4.6, Chloride 102, Carbon Dioxide 27.8, Anion Gap 11.8, BUN 14, Creatinine 0.80, Est GFR ( Amer) > 60, Est GFR (Non-Af Amer) > 60, Glucose 149 H, Calcium 8.8 02/04/22 06:01: Corrected WBC 11.3 H, Uncorrected WBC Count 11.3 H, RBC 4.53, Hgb 13.2, Hct 39.8, MCV 87.8, MCH 29.1, MCHC 33.2, RDW 13.9, Plt Count 174, MPV 7.0, Neut % (Auto) 89.3, Lymph % (Auto) 3.0, Daggett % (Auto) 7.6, Eos % (Auto) 0.0, Baso % (Auto) 0.1, Neut # (Auto) 10.1 H, Lymph # (Auto) 0.3 L, Dag[place] # (Auto) 0.9 H, Eos # (Auto) 0.0, Baso # (Auto) 0.0, Nucleated RBC % (auto) 0.0 02/03/22 17:13: Corrected WBC 6.7, Uncorrected WBC Count 6.7, RBC 4.62, Hgb 13.4, Hct 40.5, MCV 87.8, MCH 29.1, MCHC 33.1, RDW 14.1, Plt Count 160, MPV 6.7,Neut % (Auto) 93.8, Lymph % (Auto) 5.3, [place] % (Auto) 0.7, Eos % (Auto) 0.0, Baso % (Auto) 0.2, Neut # (Auto) 6.3, Lymph # (Auto) 0.4 L, Daggett # (Auto) 0.0, Eos # (Auto) 0.0, Baso # (Auto) 0.0, Nucleated RBC % (auto) 0.0 01/20/22 11:35: Blood Type O Positive, Antibody Screen Negative, Crossmatch (AHG) See Detail Assessment/Plan Assessment/Plan (1) Lumbar stenosis with neurogenic claudication: Plan: Postoperative day #1 the patient actually looks relatively good. His hemoglobinis remained stable with a 13 count. He we will start physical therapy for gait training. Code(s): M48.062 - Spinal stenosis, lumbar region with neurogenic claudication Status: Acute (2) Urethral stricture: Code(s): N35.919 - Unspecified urethral stricture, male, unspecified site Status: Acute Documented By: Boone Gregory MD 02/04/22 0741 Signed By: <Electronically signed by MD Boone Gregory> 02/04/22 0748 [facility] Work Phone: 1(180) 106-244210-05-2022 Consult note Author [facility] February 03, 2022 1:51pm Note Date/Time February 03, 2022 1: 51pm [facility] [address] [place] [address] Urology Consult Note Signed Patient: Eduadro Montalvo MR#: [id number] 52 : 1945 Acct:[id number] Age/Sex: 76 / M Adm Date: 2 Loc: [place] Room: Type: [facility] Attending Dr: Boone Gregory MD Copies to: MD Desmond Natarajan MD Patrick R Waters, MD~ History of Present Illness Consult Details Consult Date: 02/03/2022 Reason for Urology Consult: Inability to place Galan Requesting Provider: Boone Gregory MD HPI: This gentleman is here for surgery from Dr. Gregory. While under anesthesia the OR team was unable to get a Galan catheter and even after numerous attempts. Urology has been consulted to help with this issue. The patient has a history of prostate cancer for which he had brachytherapy 5 to6 years ago. He states that he has not had any significant urinary problems. Review of Systems Review of Systems All other systems reviewed & are negative unless noted below or in HPI PMFSH Vaccinated for COVID-19?: Yes Medical History Arthritis Back pain History of prostate cancer surgery 2018 Hx of fracture of nose Numbness and tingling of both feet Surgical History History of prostate surgery 2018 Family History Father HTN (hypertension) Social History Smoking Status: Former smoker Tobacco Type: cigarettes Substance Use Type: None Meds Medications and Allergies Allergies No Known Allergies Allergy (Verified 01/20/22 11:38) Home Medications lactobacillus combination no.4 3 billion cell capsule (Probiotic) 3,000 mmu cells PO DAILY 04/07/18 [History Confirmed 02/03/22] tamsulosin 0.4 mg capsule 0.4 mg PO DAILY 04/07/18 [History Confirmed 02/03/22] acetaminophen 650 mg tablet,extended release 650 mg PO Q12H 01/20/22 [History Confirmed 02/03/22] calcium 600 mg capsule 600 mg PO DAILY 01/20/22 [History Confirmed 02/03/22] meloxicam 15 mg tablet 15 mg PO DAILY 01/20/22 [History Confirmed 02/03/22] multivitamin 1 tab PO DAILY 01/20/22 [History Confirmed 02/03/22] zinc 50 mg capsule 50 mg PO DAILY 01/20/22 [History Confirmed 02/03/22] Exam Physical Exam Vital Signs: Temp Pulse Resp BP Pulse Ox O2 Del Method O2 Flow Rate 98.4 F 68 16 140/78 98 Room Air 8 02/03/22 09:14 02/03/22 12:35 02/03/22 12:35 02/03/22 12:35 02/03/22 12:35 02/03/22 12:35 02/03/22 08:44 Narrative: He is resting comfortably on the [facility] bed in phase 2. He is in no acute distress. Abdomen is soft and nontender. Bladder is palpable. External genitalia are normal. At this time under sterile conditions the genitalia were sterilely prepped and draped in the usual fashion. 2% Xylocaine jelly was passed per urethra. I thenpassed a 18 [place] coud? Galan catheter and the catheter seem to get caught up near the bladder neck. After numerous attempts I stopped. We then obtained verbal consent and passed a flexible cystoscope per urethra andas I got to the bulb 1 could see that he had posterior major false passages. The actual urethra was anterior to this. I was able to get the scope up and in the true lumen and right at the bladder neck it was a strictured shot. This of course was rockhard due to prior radiation. I then passed a Glidewire through the scope and was able to get it through this area into the bladder. I removed the scope and then passed a 22 [place] sound over the wire and was able to dilate the bladder neck. I sequentially dilated up to 30 [place]. I then passed a 16 [place] tip Galan catheter over the wire and was able to get it into the bladder but this was actually very difficult. 10 cc of fluid was placed in the balloon after the Glidewire was removed. We obtained about 600 ccresidual urine. I then manually irrigated the catheter with a catheter tip syringe and removed clots. Assessment/Plan (1) Urethral stricture: Plan: This gentleman has a urethral stricture presumably from prior radiation. Currently it has been dilated up to 30 Gibraltarian. A Galan catheter is placed. He also has false passages posteriorly from prior failed attempts at catheterization. This catheter should stay in for at least 2 to 3 weeks. If he ever requires catheterization in the near future this is going to need to be done by a urologist. He also has a history of prostate cancer for which she had brachytherapy. Thanks for letting me take part in his care. Code(s): N35.919 - Unspecified urethral stricture, male, unspecified site Documented By: Harjit Mueller MD 02/03/22 1340 Signed By: <Electronically signed by MD Harjit Mueller> 02/03/22 1062 [facility] Work Phone: [phone] 109-547109-15-2022 Evaluation note* Encounter Date Diagnosis Assessment Notes Treatment Notes Treatment Clinical Notes Dec, Lumbar stenosis with neurogenic claudication (ICD-10 - M48.062) This gentleman has severe spinal stenosis at L4-5 with spondylolisthesis and moderate to severe stenosis at L3-4 with normal alignment. He does have a slight retrolisthesis at levels above, as seen on plain x-ray. The findings were independently reviewed for both the plain x-ray and MRI of the lumbar spine. Given the patient's overall age abilities etc and the pathology as I have noted above, I would recommend a posterior lumbar interbody fusion L3-4 and L4-5 with screws and rods. I think more surgery would not be beneficial at this point. Further stabilization of the spine cephalad would be more disabling in the long run and probably gain no better benefit immediately or in the near term. I reviewed all images face to face with the patient and his and discussed treatment options in detail, along with risks and benefits of surgery. I discussed with the patient the indication operation postop course risk benefits of surgery and complications to include paralysis infection nerve damage incomplete relief of symptoms. I believe all understand agree the patient feels his ability to perform and quality of life is very poor at present and he agrees to surgical intervention. Alternatives as pain management were discussed. Patient will need to be braced postop for a period of 3 months for immobilization to allow fusion of the back. A lumbar sagital brace will be dispensed prior to surgery to reduce pain by restricting mobility of the trunk and to otherwise support weak spinal muscles and/or a deformed spine. 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 FINDINGS: BONES:Tiny degenerative osteophytes along the articular margins of the patella. No fracture, dislocation, or bone lesion. No significant joint space narrowing. SOFT TISSUES:No visible soft tissue swelling. EFFUSION:None visible. OTHER: Negative. IMPRESSION: 1. No acute bone abnormality. 2. Minimal degenerative changes. Electronically authenticated by: PANDA SALGADO Date: 2021-12-25 16:3808-09-2022 History of Present illness Narrative* G Nnamdi Patton MD - 12/08/2021 1:27 PM EDT Radiation Oncology - Follow Up Note PATIENT NAME: Eduardo Montalvo PATIENT DIAGNOSIS: DIAGNOSIS: Prostate adenocarcinoma, initial PSA 7.65, biopsy Halley score 3 + 3 = 6 (grade group 1), clinical stage I, [id number] RADIATION SUMMARY:DATES OF TREATMENT: 12/07/2017 to 02/07/2018 AREA TREATED: Pelvis DELIVERED DOSE: Area: Prostate SV 5,040cGy in 28 fractions, 2 Arcs, IMRT(VMAT), 6MV with daily CBCT DELIVERED DOSE: Area: Prostate 2,880cGy in 16 fractions, 2 Arcs, IMRT (VMAT), 6MV with daily CBCT TOTAL: 7,920cGy in 44 fractions ELAPSED TIME: 62 days. INTERVAL HISTORY: Doing well. Denies new problems. PSA 01/20/2021: 1.7 ng/ml PSA. (no units) Date Value 12/01/2021 0.68 05/27/2021 0.78 05/27/2021 0.78 07/09/2020 1.26 ALLERGIES No Known Allergies tamsulosin ER (FLOMAX) 0.4 mg Take 1 capsule by mouth daily at bedtime. REVIEW OF SYSTEMS: D/N = na Hematuria: No Catheter use: no AUA: 6 Medications to aid urination: y Bowel movement frequency: 1/day Bowel movement quality: normal Blood per rectum: none PHYSICAL EXAM: BP 139/81 Pulse 64 Temp 36.6 C (97.9 F) Resp 18 Wt 94.8 kg (209 lb) SpO2 98% BMI 26.83 kg/m KPS:100 General appearance: Alert and oriented. No acute distress. Abdomen: Normal abdominal exam, Abdomen soft, non-tender. No masses, organomegaly. Rectal exam def Extremities: No deformities, edema, skin discoloration, clubbing or cyanosis. Lymph Nodes: No cervical lymphadenopathy, No supraclavicular lymphadenopathy, No axillary lymphadenopathy. Skin: Skin color, texture, turgor normal, no suspicious rashes or lesions. ASSESSMENT/PLAN: Prostate adenocarcinoma, initial PSA 7.65, biopsy [place] score 3 + 3 = 6 (grade group 1), clinical stage I, [id number] , prior definitive radiation completed January 2018. Patient doing well , PSA is at a good value and continues to decrease over time. Plan followup in 1 year with continued PSA surveillance. Patient has continued follow-up with Dr. Loving. Signed by: Reta Patton MD cc: Desmond Alex MD ([facility]) Dr. Loving Portions of the above note extracted and edited from previous visit as well as active information included in the EMR. [facility]* Gail Huddleston RN - 12/08/2021 1:21 PM EDT DIAN 6. Gail Huddleston RN documented in this encounterPrem[facility] History of Past illness Narrative* Problem Noted Date Diagnosed Date Resolved Date Prostate cancer 12/16/2016 12/07/2022 documented as of this encounter (statuses as of 12/07/2022) [facility] note* Diagnosis Prostate cancer (HCC)- Primary Malignant neoplasm of prostate documented in this encounter [facility] noteNo [employer] Other evaluation note* Diagnosis Onset Date Resolution Status Lumbar stenosis with neurogenic claudication acute Urethral stricture acute [facility] Work Phone: Evaluation noteNo assessment information available [facility] Work Phone: evaluation note* Diagnosis History of prostate cancer- Primary Personal history of malignant neoplasm of prostate documented in this encounter [facility] Diagnosis Onset Date Resolution Status Primary osteoarthritis of left hip acute [facility] Work Phone: Evaluation note* Diagnosis Onset Date Resolution Status Primary osteoarthritis of left hip acute Primary osteoarthritis of left hip acute [facility] Work Phone: Evaluation note* Diagnosis Onset Date Resolution Status Primary osteoarthritis of left hip acute Aftercare following left hip joint replacement surgery acute Status post hip replacement acute Aftercare following left hip joint replacement surgery acute Status post hip replacement acute [facility] Work Phone: Evaluation note* Diagnosis History of prostate cancer- Primary Personal history of malignant neoplasm of prostate documented in this encounter [facility] note* Diagnosis Onset Date Resolution Status Primary osteoarthritis of left hip acute Aftercare following left hip joint replacement surgery acute Status post hip replacement acute Aftercare following left hip joint replacement surgery acute Status post hip replacement acute History of lumbar fusion acu te Spondylolisthesis, lumbar region acute [facility] Work Phone: Evaluation note* Diagnosis Onset Date Resolution Status Aftercare following left hip joint replacement surgery acute Status post hip replacement acute Aftercare following left hip joint replacement surgery acute Status post hip replacement acute History of lumbar fusion acu te Spondylolisthesis, lumbar region acute [facility] Work Phone: Evaluation note* Diagnosis Onset Date Resolution Status Admit Date Aftercare following left hip joint replacement surgery acute November 012024 12:33pm [facility] Work Phone: History general Narrative - Reported* Type Description Date Medical History Arthritis Medical History prostate cancer Surgical History TURP Hospitalization History see surgical [facility] Other [facility] general Narrative - Reported* Type Description Date Medical History Arthritis Medical History prostate cancer Medical History acid reflux Medical History DVT Surgical History TURP Hospitalization History see surgical [facility] Other [facility]ic[facility] general Narrative - Reported* Type Description Date Medical History Arthritis Medical History prostate cancer Medical History acid reflux Medical History DVT Surgical History TURP Surgical History Dr. Colt COULTER 2021 Hospitalization History see surgical hx [facility] Other Hospital Discharge instructionsAmbulatory Orders* Initiate Home Health Time Frame: 1 Day, Location: Determined By Patient Additional Instructions DISCHARGE INSTRUCTIONS FOR POSTERIOR LUMBAR INTERBODY FUSION OR POSTERIOR LUMBAR FUSION DIET-regular home diet ACTIVITY - Wear brace when sitting and standing and out of bed - Activity as tolerated; No lifting over 15 pounds - Stairs as tolerated - Walk as much as possible - No driving until seen by physician; may ride in car -May shower today. When taking first shower leave dressing on complete shower remove dressing dry the wound and apply small amount of antibiotic ointment to the wound 1 time daily thereafter - Keep incision clean and dry OTHER - Call your provider's office for any fever, chills, nausea, vomiting, headache, numbness, or tingling. - Call your providers office and make an appointment to see your provider in 2 weeks. Use ice as needed for back spasm 20 minutes every 1-2 hours Use the prednisone provided if the leg pain returns to a significant degree after surgery. If it does not do not use the [facility]one[facility] Work Phone: Hospital Discharge instructions Additional Instructions Take antibiotics as instructed until gone Keep your appointment with Dr. Mueller urology on Tuesday Please return here if you develop any chest pain, shortness of breath, loss of bowel bladder control, numbness, tingling or any other concerns. Continue your home regimen of medications [facility] instructedHenry [facility] Work Phone: Hospital Discharge instructions Additional Instructions If your symptoms return/worsen or you develop any further concerns or symptoms please see your doctor or return to the emergency department immediately. Please watch for any of the signs of bleeding as we discussed, if you have any falls or trauma you should be evaluated by a medical provider. Please be sure to follow-up with the urine culture results.[facility] Work Phone: Reason for referral (narrative)No reason for referral information availableC[facility] Work Phone: Summary Purpose Family History Relationship Condition Age at Onset Recorded Date/T [place] father Hypertension Unknown Relationship Condition Age at Onset Recorded Date/T [place] Not Specified Gastric ulcer Unknown father Hypertension Unknown Unknown Not Specified Unknown Relationship Condition Age at Onset Recorded Date/T [place] father Unknown Hypertension Unknown Not Specified Unknown Gastric ulcer Unknown Relationship Condition Age at Onset Recorded Date/T [place] father Unknown Hypertension Unknown mother Unknown Gastric ulcer Unknown Advance Directives Advance Directive Response Recorded Date/ Time Advance Directives Yes April 2:51pm Advance Directive Response Recorded Date/ Time Advance Directives Yes April 1:51pm Chief Complaint and Reason for Visit Chief Complaint M47.816 Spondylolisthesis Spondylolisthesis Spondylolisthesis Reason for Visit Lumbar stenosis with neurogenic claudication Urethral stricture Chief Complaint M47.816 Spondylolisthesis Spondylolisthesis Spondylolisthesis See order Reason for Visit Lumbar stenosis with neurogenic claudication Urethral stricture Chief Complaint M47.816 Spondylolisthesis Spondylolisthesis Spondylolisthesis See order weakness Reason for Visit Lumbar stenosis with neurogenic claudication Urethral stricture Chief Complaint M47.816 Spondylolisthesis Spondylolisthesis Spondylolisthesis See order weakness sent by Reason for Visit Lumbar stenosis with neurogenic claudication Urethral stricture Chief Complaint See order weakness sent by m43.16 Chief Complaint m43.16 M16.12 M47.816 Chief Complaint m43.16 m47.816 Chief Complaint M16.12 - Unilateral primary osteoarthritis, left h OP SP LT HIP PAIN REQUESTING INJECTION Right Inguinal Hernia Reason for Visit Primary osteoarthrit is of left hip Chief Complaint M16.12 - Unilateral primary osteoarthritis, left h OP SP LT HIP PAIN REQUESTING INJECTION Right Inguinal Hernia Right Inguinal Hernia Reason for Visit Primary osteoarthrit is of left hip Chief Complaint Right Inguinal Herni a Right Inguinal Hernia OP SP LT HIP PAIN Reason for Visit Primary osteoarthrit is of left hip Chief Complaint Right Inguinal Herni a Right Inguinal Hernia OP SP LT HIP PAIN Pre-Surgical Testing-pass Reason for Visit Primary osteoarthrit is of left hip Chief Complaint Right Inguinal Herni a Right Inguinal Hernia OP SP LT HIP PAIN Pre-Surgical Testing-pass Preop L ELISE H&P LTHA Reason for Visit Primary osteoarthrit is of left hip Primary osteoarthritis of left hip Chief Complaint Right Inguinal Herni a Right Inguinal Hernia OP SP LT HIP PAIN Pre-Surgical Testing-pass Preop L ELISE H&P LTHA Hip pain Reason for Visit Primary osteoarthrit is of left hip Primary osteoarthritis of left hip Chief Complaint Right Inguinal Herni a Right Inguinal Hernia OP SP LT HIP PAIN Pre-Surgical Testing-pass Preop L ELISE H&P LTHA Hip pain Prolonged Reason for Visit Primary osteoarthrit is of left hip Primary osteoarthritis of left hip Chief Complaint Right Inguinal Herni a Right Inguinal Hernia OP SP LT HIP PAIN Pre-Surgical Testing-pass Preop L ELISE H&P LTHA Hip pain Prolonged Hip pain Hip pain Reason for Visit Primary osteoarthrit is of left hip Primary osteoarthritis of left hip Chief Complaint OP SP LT HIP PAIN Pre-Surgical Testing-pass Preop L ELISE H&P LTHA Hip pain Prolonged Hip pain Hip pain 2 WK POST OP LTHA Reason for Visit Primary osteoarthrit is of left hip Primary osteoarthritis of left hip Chief Complaint Preop L ELISE H&P LTHA Hip pain Prolonged Hip pain Hip pain 2 WK POST OP LTHA Z96.649 - Presence of unspecified artificial hip j 4 WK RECHECK Reason for Visit Primary osteoarthrit is of left hip Aftercare following left hip joint replacement surgery Status post hip replacement Aftercare following left hip joint replacement surgery Status post hip replacement Chief Complaint Preop L ELISE H&P LTHA Hip pain Prolonged Hip pain Hip pain 2 WK POST OP LTHA Z96.649 Z47.1 Z96.642 4 WK RECHECK Reason for Visit Primary osteoarthrit is of left hip Aftercare following left hip joint replacement surgery Status post hip replacement Aftercare following left hip joint replacement surgery Status post hip replacement Chief Complaint Preop L ELISE H&P LTHA Hip pain Prolonged Hip pain Hip pain 2 WK POST OP LTHA Z96.649 Z47.1 Z96.642 4 WK RECHECK m48.062 yearly f/u PLIF w/xray Reason for Visit Primary osteoarthrit is of left hip Aftercare following left hip joint replacement surgery Status post hip replacement Aftercare following left hip joint replacement surgery Status post hip replacement History of lumbar fusion Spondylolisthesis, lumbar region Chief Complaint Hip pain Prolonged Hip pain Hip pain 2 WK POST OP LTHA Z96.649 Z47.1 Z96.642 4 WK RECHECK m48.062 yearly f/u PLIF w/xray Reason for Visit Aftercare following left hip joint replacement surgery Status post hip replacement Aftercare following left hip joint replacement surgery Status post hip replacement History of lumbar fusion Spondylolisthesis, lumbar region Chief Complaint Admit Date Z47.1 - Aftercare following joint replac ement surg November 01, 2024 9:05am OP SP LT ELISE PAIN November 01, 2024 12:33 pm Reason for Visit Admit Date Aftercare following left hip joint repla cement surgery November 01, 2024 12:33pm Reason for Visit Admit Date Aftercare following left hip joint repla cement surgery November 01, 2024 12:33pm Primary osteoarthritis of right hip November 01, 2024 12:33pm Chief Complaint Admit Date Z47.1 - Aftercare following joint replac ement surg November 01, 2024 9:05am OP SP LT ELISE PAIN November 01, 2024 12:33 pm 1 YEAR January 23, 2025 2:39pm Reason for Referral Reason 05/19/22 @ 2:00pm Evaluate and Treat L Hip Arthropathy Diagnosis 1 Arthropathy of left hip (M16.12) Referral Organization [facility] Referring Provider First Name Boone Referring Provider Last Name Colt Referring Provider Specialty Neurologica l Surgery Referred Organization [facility] Referred Provider Nilsa Vargas II Ref[address],[address] Referred Provider Specialty Orthopaedic Surgery Referral Priority Routine Referral Appointment Date 2022-05-19 General Notes Zamzam Killian 023 01:13:44 PM >Received today and sent P2P Zamzam Killian 05/10/2022 11:59:25 AM >Patient has been scheduled Zamzam Killian 05/20/2022 08:05:50 AM >Sent telephone encounter to referring physician to let them know that the consult letter is ready for their review Reason Evaluate and Treat G ait Training and Leg Strengthening Diagnosis 1 Spondylolisthesis, l umbar region (M43.16) Referral Organization [facility] urosurgery Referring Provider First Name Boone Referring Provider Last Name Colt Referring Provider Specialty Neurologica l Surgery Referred Organization [facility] Referred Address ,[place], [place] Referred Provider Specialty Physical The rapist Referral Priority Routine Additional Source Comments (unrecognized sect ion and content) No Status Records FoundNo Status Records FoundNo Status Records FoundNo Status Records FoundNo Status Records FoundNo Status Records FoundNo Status Records Found INFORMATION SOURCE (unrecogn ized section and content) DATE CREATED AUTHOR 10/19/2017 [facility] DATE CREATED AUTHOR AUTHOR'S ORGANIZ ATION 09/12/2022 [facility] DATE CREATED AUTHOR AUTHOR'S ORGANIZ ATION 10/29/2023 [facility] DATE CREATED AUTHOR AUTHOR'S ORGANIZ ATION 01/09/2024 [facility] DATE CREATED AUTHOR AUTHOR'S ORGANIZ ATION 02/02/2024 [facility] DATE CREATED AUTHOR AUTHOR'S ORGANIZ ATION 08/19/2024 [facility] DATE CREATED AUTHOR AUTHOR'S ORGANIZ ATION 11/19/2024 [facility] Source Comments (unrecognize d section and content) In the event this informatio n is protected by the Federal Confidentiality of Alcohol and Drug Abuse Patient Records regulations: The Federal rules restrict any use of the information to criminally investigate or prosecute any alcohol or drug abuse patient.[facility] the event this information is protected by the Federal Confidentiality of Alcohol and Drug Abuse Patient Records regulations: The Federal rules restrict any use of the information to criminally investigate or prosecute any alcohol or drug abuse patient.[facility] the event this information is protected by the Federal Confidentiality of Alcohol and Drug Abuse Patient Records regulations: The Federal rules restrict any use of the information to criminally investigate or prosecute any alcohol or drug abuse patient.[facility] Reason for Visit (unrecogniz ed section and content) Reason Comments Prostate Cancer Reason Comments Prostate Cancer Follow up Care Teams (unrecognized sec tion and content) Team Status: Active Member Role Status Dates Desmond Alex MD Primary Care Provider Active Team Status: Inactive Member Role Status Dates Desmond Alex MD Primary Care Provider Active S tart: November 01, 2024 End: November 01, 2024 Nilsa Vargas II, MD Attending Provider Active Start: November 01, 2024 End: November 01, 2024 Team Status: Active Member Role Status Dates Desmond Alex MD Primary Care Provider Active S tart: November 01, 2024 Nilsa Vargas II, MD Attending Provider Active Start: November 01, 2024 Team Status: Inactive Member Role Status Dates Desmond Alex MD Primary Care Provider Active S tart: November 18, 2023 End: November 18, 2023 Nilsa Vargas II, MD Attending Provider Active Start: November 18, 2023 End: November 18, 2023 Team Status: Inactive Member Role Status Dates Desmond Alex MD Primary Care Provider Active S tart: November 21, 2023 End: November 21, 2023 Nilsa Vargas II, MD Attending Provider Active Start: November 21, 2023 End: November 21, 2023 Team Status: Inactive Member Role Status Dates Desmond Alex MD Primary Care Provider Active S tart: November 25, 2023 End: November 25, 2023 Nilsa Vargas II, MD Attending Provider Active Start: November 25, 2023 End: November 25, 2023 Team Status: Inactive Member Role Status Dates Desmond Alex MD Primary Care Provider Active S tart: December 05, 2023 End: December 05, 2023 Nilsa Vargas II, MD Attending Provider Active Start: December 05, 2023 End: December 05, 2023 Team Status: Active Member Role Status Dates Desmond Alex MD Primary Care Provider Active S tart: December 05, 2023 Nilsa Vargas II, MD [facility] Active Start: December 05, 2023 Team Status: Inactive Member Role Status Dates Desmond Alex MD Primary Care Provider Active S tart: December 21, 2023 End: December 21, 2023 Nilsa Vargas II, MD Attending Provider Active Start: December 21, 2023 End: December 21, 2023 Team Status: Inactive Member Role Status Kath Alex MD Primary Care Provider Active S tart: January 19, 2024 End: January 19, 2024 Nilsa Vargas II, MD Attending Provider Active Start: January 19, 2024 End: January 19, 2024 Team Status: Active Member Role Status Kath Alex MD Primary Care Provider Active S tart: November 18, 2023 Nilsa Vargas II, MD Attending Provider Active Start: November 18, 2023 Team Status: Active Member Role Status Kath Alex MD Primary Care Provider Active S tart: January 19, 2024 Nilsa Vargas II, MD Attending Provider Active Start: January 19, 2024 Deputy Chief Magistrate Relationship Specialty Start Date End Date Desmond Alex PCP - General Family Practice 12/16/16 Team Status: Inactive Member Role Status Dates Desmond Alex MD Primary Care Provider Active Boone Gregory MD Attending Provider Active Team Status: Inactive Member Role Status Dates Desmond Alex MD Primary Care Provider Active Harjit Bui , DO Emergency Provider Active Team Status: Inactive Member Role Status Dates Desmond Alex MD Primary Care Provider Active Thomas Willard , DO Emergency Provider Active Team Status: Inactive Member Role Status Dates Desmond Alex MD Primary Care Provider Active Nilsa Vargas II, MD Attending Provider Active Deputy Chief Magistrate Relationship Specialty Start Date End Date Desmond Alex PCP - General Family Medicine 12/16/16 Team Status: Inactive Member Role Status Dates Desmond Alex MD Primary Care Provider Active S tart: June 30, 2023 End: June 30, 2023 Nilsa Vargas II, MD Attending Provider Active Start: June 30, 2023 End: June 30, 2023 Team Status: Inactive Member Role Status Dates Desmond Alex MD Primary Care Provider Active S tart: September 06, 2023 End: September 06, 2023 Rohan Narayan DO Attending Provider Active Start : September 06, 2023 End: September 06, 2023 Team Status: Inactive Member Role Status Dates Desmond Alex MD Primary Care Provider Active S tart: September 09, 2023 End: September 09, 2023 Rohan Narayan DO Attending Provider Active Start : September 09, 2023 End: September 09, 2023 Team Status: Inactive Member Role Status Dates Desmond Alex MD Primary Care Provider Active S tart: October 12, 2023 End: October 12, 2023 Nilsa Vargas II, MD Attending Provider Active Start: October 12, 2023 End: October 12, 2023 Deputy Chief Magistrate Relationship Specialty Start Date End Date Desmond Alex PCP - General Family Medicine 12/16/16 Team Status: Active Member Role Status Dates Desmond Alex MD Primary Care Provider Active S tart: February 16, 2024 Boone Gregory MD Attending Provider Active Star t: February 16, 2024 Team Status: Inactive Member Role Status Dates Desmond Alex MD Primary Care Provider Active S tart: February 16, 2024 End: February 16, 2024 Boone Gregory MD Attending Provider Active Star t: February 16, 2024 End: February 16, 2024 Deputy Chief Magistrate Relationship Specialty Start Date End Date Desmond Alex MD [address] [place] [address] PCP - General Family Medicine 08/05/23 Team Status: Inactive Member Role Status Dates Desmond Alex MD Primary Care Provider Active S tart: January 23, 2025 End: January 23, 2025 Nilsa Vargas II, MD Attending Provider Active Start: January 23, 2025 End: January 23, 2025 Goals (unrecognized section and content) Goals may be documented in a n alternate section FOR RECORDS PERTAINING TO PATIENTS WHO ARE OR HAVE BEEN ENROLLED IN A CHEMICAL DEPENDENCY/SUBSTANCEABUSE PROGRAM, SOME INFORMATION MAY BE OMITTED. This clinical summary was aggregated from multiple sources. Caution should be exercised in using it in the provision of clinical care. This summary normalizes information from multiple sources, and as a consequence, information in this document may materially change the coding, format and clinical context of patient data. In addition, data may be omitted in some cases. CLINICAL DECISIONS SHOULD BE BASED ON THE PRIMARY CLINICAL RECORDS. [facility] [employer] [facility]. provides no warranty or guarantee of the accuracy or completeness of information in this document.
[2025-01-25 15:48] LABS: Prostate Specific Antigen Dx 0.45 ng/mL (<=4.00)
== END 2025-01-25 14:23 | disposition home or self-care (01) ==
LOC: LAB 14:22
PROVIDERS: PCP Family Medicine; Visit Provider Radiology Radiation Oncology
DX: Z85.46 Personal history of malignant neoplasm of prostate (principal)
CPT/HCPCS: 36415; 84153